=== PATIENT | male | born 1955 | race African-American/Black ===

== ENCOUNTER 2021-05-19 10:17 | Inpatient (IN) | payer MEDICARE, OTHER ==
[~2021-05-19] VITALS: Ht 188 cm; Wt 140.4 kg
[2021-05-19] MEDS ORDERED: SODIUM CHLORIDE 0.9% 500 ML IV ONE (11:00)
[2021-05-19] MEDS ORDERED: ONDANSETRON HCL 4 MG/2 ML VIAL IV ONE (11:00)
[2021-05-19] MEDS ORDERED: MORPHINE SULFATE 4 MG/ML SYR/VIAL IV ONE (11:00)
[2021-05-19 11:56] LABS: Basophils # (auto) 0 10 ^3/uL (0-0.2); Basophils % (auto) 0.6 % (0.0-2.0); Eosinophils # (auto) 0.3 10 ^3/uL (0-0.8); Hematocrit 33.4 % (41.0-53.0); Lymphocytes # (auto) 0.8 10 ^3/uL (0.4-5.4); Lymphocytes % (auto) 11.1 % (10.0-50.0); Mean Corpuscular Hemoglobin 27.2 pg (28.0-32.0); Mean Corpuscular Hgb Conc. 32.9 g/dL (32.0-36.0); Mean Corpuscular Volume 82.8 fL (80.0-100.0); Monocytes # (auto) 0.8 10 ^3/uL (0-1.3); Monocytes % (auto) 11.3 % (0.0-12.0); Neutrophils # (auto) 5.3 10 ^3/uL (1.6-8.6); Red Blood Cells 4.04 10^6/uL (4.5-5.90); Red Cell Distribution Width 16.8 % (11.8-14.3); White Blood Cell 7.2 10^3/uL (4.4-10.8)
[2021-05-19 12:14] LABS: Albumin 3.2 g/dL (3.4-5.0); BUN/Creatinine Ratio 23.5; Calcium 8.8 mg/dL (8.5-10.1); Potassium 3.3 mmol/L (3.5-5.1)
[2021-05-19 12:20] LABS: INR 1.09 (0.9-1.15); Partial Thromboplastin Time 48.4 sec (23.6-33.0)
[2021-05-19 12:24] LABS: Bilirubin, Total 0.4 mg/dL (0.2-1.0); Total Protein 7.9 g/dL (6.4-8.2)
[2021-05-19] MEDS ORDERED: HYDROcodone-ACET 10/325MG TAB PO ONE (13:00)
[2021-05-19] MEDS ORDERED: CLINDAMYCIN 600MG IV 50 ML IV ONE (13:15)
[2021-05-19] MEDS ORDERED: ACETAMINOPHEN 325 MG TAB PO PRN (14:00)
[2021-05-19] MEDS ORDERED: SODIUM CHLORIDE 0.9% 1,000 ML IV ONE (14:00)
[2021-05-19] MEDS ORDERED: GABA300C10 PO (14:21)
[2021-05-19] MEDS ORDERED: HYDR25TA5 PO (14:21)
[2021-05-19] MEDS ORDERED: ATOR40TA52 PO (14:21)
[2021-05-19] MEDS ORDERED: NICO14DI29 TOP (14:21)
[2021-05-19] MEDS ORDERED: METO1TAB9 PO (14:21)
[2021-05-19] MEDS ORDERED: HYDR-4611 (14:21)
[2021-05-19] MEDS ORDERED: LOSA-39 PO (14:21)
[2021-05-19] MEDS ORDERED: TAMS0.4C36 PO (14:21)
[2021-05-19] MEDS ORDERED: FURO40TA4 PO (14:21)
[2021-05-19] MEDS: GABAPENTIN 300 MG CAP PO SCH ×2 (14:53→23:53)
[2021-05-19] MEDS ORDERED: POTASSIUM EFFERVESENT TAB 25 MEQ PO ONE (15:15)
[2021-05-19] MEDS: CEPHALEXIN 250 MG CAP PO SCH (15:31)
[2021-05-19] MEDS ORDERED: HYDROmorphone HCL 2 MG/ML VL ONE (16:30)
[2021-05-19] MEDS ORDERED: HYDROmorphone HCL 2 MG/ML VL IV SCH (16:30)
[2021-05-19] MEDS: HYDROmorphone HCL 2 MG/ML VL IV PRN (16:45)
[2021-05-19] MEDS: TAMSULOSIN HYDROCHLORIDE 0.4 MG CAP PO SCH (18:49)
[2021-05-19] MEDS: HYDROcodone-ACET 10/325MG TAB PO PRN (18:49)
[2021-05-19] MEDS: FUROSEMIDE 40 MG TAB PO SCH (18:49)
[2021-05-19 18:54] VITALS: BP 100/69
[2021-05-19 22:33] VITALS: BP 137/72
[2021-05-19] MEDS: ATORVASTATIN 20 MG TAB PO SCH (23:52)
[2021-05-19] MEDS: DOXYCYCLINE 100 MG TAB/CAP PO SCH (23:53)
[2021-05-20 05:36] VITALS: BP 117/69
[2021-05-20] MEDS: CEPHALEXIN 250 MG CAP PO SCH ×2 (06:11→15:53)
[2021-05-20] MEDS: FUROSEMIDE 40 MG TAB PO SCH ×2 (06:14→18:41)
[2021-05-20 07:02] LABS: Basophils # (auto) 0 10 ^3/uL (0-0.2); Basophils % (auto) 0.6 % (0.0-2.0); Eosinophils # (auto) 0.3 10 ^3/uL (0-0.8); Eosinophils % (auto) 3.4 % (0.0-7.0); Hematocrit 31.5 % (41.0-53.0); Hemoglobin 10.6 g/dL (13.5-17.5); Lymphocytes # (auto) 0.9 10 ^3/uL (0.4-5.4); Lymphocytes % (auto) 11.6 % (10.0-50.0); Mean Corpuscular Hemoglobin 28.2 pg (28.0-32.0); Mean Corpuscular Hgb Conc. 33.7 g/dL (32.0-36.0); Mean Corpuscular Volume 83.7 fL (80.0-100.0); Monocytes # (auto) 0.9 10 ^3/uL (0-1.3); Monocytes % (auto) 11.6 % (0.0-12.0); Neutrophils # (auto) 5.5 10 ^3/uL (1.6-8.6); Neutrophils % (auto) 72.8 % (37.0-80.0); Red Blood Cells 3.77 10^6/uL (4.5-5.90); Red Cell Distribution Width 16.6 % (11.8-14.3); White Blood Cell 7.5 10^3/uL (4.4-10.8)
[2021-05-20 07:03] LABS: Potassium 3.5 mmol/L (3.5-5.1)
[2021-05-20 07:09] LABS: Albumin 3.2 g/dL (3.4-5.0); BUN/Creatinine Ratio 27.4; Calcium 8.6 mg/dL (8.5-10.1); Magnesium 2.7 mg/dL (1.6-2.6)
[2021-05-20 07:11] LABS: Bilirubin, Total 0.7 mg/dL (0.2-1.0); Phosphorus 4.1 mg/dL (2.5-4.90); Total Protein 7.4 g/dL (6.4-8.2)
[2021-05-20 09:15] VITALS: BP 105/61
[2021-05-20] MEDS: METOPROLOL SUCCINATE XL 50 MG TAB PO SCH (10:00)
[2021-05-20] MEDS: LOSARTAN POTASSIUM 50 MG TAB PO SCH (10:00)
[2021-05-20] MEDS: HCTZ 25 MG TAB PO SCH (10:00)
[2021-05-20] MEDS: ONDANSETRON HCL 4 MG/2 ML VIAL IV PRN ×2 (10:09→15:37)
[2021-05-20] MEDS: HYDROmorphone HCL 2 MG/ML VL IV PRN ×2 (10:10→15:40)
[2021-05-20] MEDS: GABAPENTIN 300 MG CAP PO SCH ×2 (10:11→23:38)
[2021-05-20] MEDS: DOXYCYCLINE 100 MG TAB/CAP PO SCH ×2 (10:11→23:39)
[2021-05-20] MEDS: ENOXAPARIN SOD 40 MG/0.4 ML SYRINGE SC SCH (10:24)
[2021-05-20 13:00] VITALS: BP 103/57
[2021-05-20] MEDS: HYDROcodone-ACET 10/325MG TAB PO PRN ×2 (13:40→23:40)
[2021-05-20 16:49] VITALS: BP 106/65
[2021-05-20 16:59] LABS: Creatinine, Urine 106 mg/dL (30.0-125.0); Sodium Urine 34 mmol/L (40-220)
[2021-05-20] MEDS: TAMSULOSIN HYDROCHLORIDE 0.4 MG CAP PO SCH (18:41)
[2021-05-20 21:57] VITALS: BP 148/57
[2021-05-20] MEDS: ATORVASTATIN 20 MG TAB PO SCH (23:38)
[2021-05-21 05:00] VITALS: BP 109/60
[2021-05-21] MEDS: CEPHALEXIN 250 MG CAP PO SCH ×2 (05:23→17:48)
[2021-05-21] MEDS: FUROSEMIDE 40 MG TAB PO SCH ×3 (05:24→17:52)
[2021-05-21] MEDS: HYDROcodone-ACET 10/325MG TAB PO PRN ×2 (05:24→22:51)
[2021-05-21 07:04] LABS: Magnesium 2.1 mg/dL (1.6-2.6)
[2021-05-21 07:07] LABS: Phosphorus 3.4 mg/dL (2.5-4.90)
[2021-05-21 09:00] VITALS: BP 105/53
[2021-05-21] MEDS: DOXYCYCLINE 100 MG TAB/CAP PO SCH ×2 (09:16→22:49)
[2021-05-21] MEDS: GABAPENTIN 300 MG CAP PO SCH ×2 (09:17→22:49)
[2021-05-21] MEDS: ENOXAPARIN SOD 40 MG/0.4 ML SYRINGE SC SCH ×2 (09:19→22:50)
[2021-05-21] MEDS: LOSARTAN POTASSIUM 50 MG TAB PO SCH (10:00)
[2021-05-21] MEDS: METOPROLOL SUCCINATE XL 50 MG TAB PO SCH (10:00)
[2021-05-21] MEDS: HCTZ 25 MG TAB PO SCH (10:00)
[2021-05-21] MEDS: HYDROmorphone HCL 2 MG/ML VL IV PRN (12:55)
[2021-05-21 13:00] VITALS: BP 120/60
[2021-05-21 17:00] VITALS: BP 124/66
[2021-05-21] MEDS: TAMSULOSIN HYDROCHLORIDE 0.4 MG CAP PO SCH (17:49)
[2021-05-21] MEDS: ATORVASTATIN 20 MG TAB PO SCH (22:49)
[2021-05-21 23:01] VITALS: BP 123/57
[2021-05-22 04:56] VITALS: BP 122/59
[2021-05-22] MEDS: CEPHALEXIN 250 MG CAP PO SCH (05:24)
[2021-05-22] MEDS: FUROSEMIDE 40 MG TAB PO SCH ×2 (05:26→06:00)
[2021-05-22] MEDS: HYDROcodone-ACET 10/325MG TAB PO PRN (05:27)
[2021-05-22 07:04] LABS: Magnesium 2.1 mg/dL (1.6-2.6)
[2021-05-22 09:28] VITALS: BP 140/76
[2021-05-22] MEDS: HCTZ 25 MG TAB PO SCH (10:21)
[2021-05-22] MEDS: GABAPENTIN 300 MG CAP PO SCH (10:21)
[2021-05-22] MEDS: ENOXAPARIN SOD 40 MG/0.4 ML SYRINGE SC SCH (10:22)
[2021-05-22] MEDS: METOPROLOL SUCCINATE XL 50 MG TAB PO SCH (10:22)
[2021-05-22] MEDS: DOXYCYCLINE 100 MG TAB/CAP PO SCH (10:22)
[2021-05-22] MEDS ORDERED: CIPR-173 PO (11:10)
[2021-05-22 12:19] VITALS: BP 140/67
[2021-05-22 12:52] VITALS: BP 140/67
== END 2021-05-22 13:25 | disposition home or self-care (01) | DRG 383 ==
LOC: ER 10:17 → OVERFLOW 13:57 → TELE-WESTW 17:57
PROVIDERS: ADMIT Student in an Organized Health Care Education/Training Program; ATTEND Family Medicine
DX: L03.115 Cellulitis of right lower limb (principal); N17.0 Acute kidney failure with tubular necrosis; I83.019 Varicose veins of right lower extremity with ulcer of unspecified site; L97.919 Non-pressure chronic ulcer of unspecified part of right lower leg with unspecified severity; D64.9 Anemia, unspecified; E87.6 Hypokalemia; N40.0 Benign prostatic hyperplasia without lower urinary tract symptoms; B96.5 Pseudomonas (aeruginosa) (mallei) (pseudomallei) as the cause of diseases classified elsewhere; E66.01 Morbid (severe) obesity due to excess calories; F17.210 Nicotine dependence, cigarettes, uncomplicated; J44.9 Chronic obstructive pulmonary disease, unspecified; N18.32 Chronic kidney disease, stage 3b; Z96.651 Presence of right artificial knee joint; I87.2 Venous insufficiency (chronic) (peripheral); Z20.822 Contact with and (suspected) exposure to COVID-19; M19.90 Unspecified osteoarthritis, unspecified site; I12.9 Hypertensive chronic kidney disease with stage 1 through stage 4 chronic kidney disease, or unspecified chronic kidney disease; Z68.41 Body mass index [BMI] 40.0-44.9, adult; Z79.899 Other long term (current) drug therapy; Z83.3 Family history of diabetes mellitus; Z86.73 Personal history of transient ischemic attack (TIA), and cerebral infarction without residual deficits; Z71.6 Tobacco abuse counseling; Z71.3 Dietary counseling and surveillance
CPT/HCPCS: 36415; 73700; 76775; 80053; 82570; 83605; 83735; 83880; 83935; 84100; 84133; 84300; 85025; 85610; 85730; 87040; 87077; 87186; 87205; 93005; 93306; 93925; 93971; 96361; 96374; 96375; G0378; J2405; J3490

== ENCOUNTER 2021-07-14 13:24 | Inpatient (IN) | payer MEDICARE, OTHER ==
[~2021-07-14] VITALS: Ht 188 cm; Wt 133.0 kg
[~2021-07-14 13:24] MED LIST: ATOR40TA52 PO; CIPR-173 PO; FURO40TA4 PO; GABA300C10 PO; HYDR-4611; HYDR25TA5 PO; LOSA-39 PO; METO1TAB9 PO; NICO14DI29 TOP; TAMS0.4C36 PO
[2021-07-14] MEDS ORDERED: SODIUM CHLORIDE 0.9% 500 ML IV ONE (15:15)
[2021-07-14 16:01] LABS: Basophils # (auto) 0.1 10 ^3/uL (0-0.2); Eosinophils # (auto) 0.3 10 ^3/uL (0-0.8); Nucleated Red Blood Cells % 0.1 %; White Blood Cell 9.8 10^3/uL (4.4-10.8)
[2021-07-14 16:03] LABS: Basophils % (auto) 0.5 % (0.0-2.0); Eosinophils % (auto) 3.1 % (0.0-7.0); Hematocrit 23.6 % (41.0-53.0); Hemoglobin 7.9 g/dL (13.5-17.5); Lymphocytes # (auto) 1.3 10 ^3/uL (0.4-5.4); Lymphocytes % (auto) 13.6 % (10.0-50.0); Mean Corpuscular Hemoglobin 27.7 pg (28.0-32.0); Mean Corpuscular Hgb Conc. 33.5 g/dL (32.0-36.0); Mean Corpuscular Volume 82.8 fL (80.0-100.0); Monocytes % (auto) 9.9 % (0.0-12.0); Neutrophils # (auto) 7.1 10 ^3/uL (1.6-8.6); Neutrophils % (auto) 72.9 % (37.0-80.0); Red Blood Cells 2.85 10^6/uL (4.5-5.90); Red Cell Distribution Width 15.4 % (11.8-14.3)
[2021-07-14 16:19] LABS: Calcium 8.3 mg/dL (8.5-10.1); Potassium 3.2 mmol/L (3.5-5.1)
[2021-07-14 16:23] LABS: Bilirubin, Total 0.9 mg/dL (0.2-1.0); Total Protein 7.4 g/dL (6.4-8.2)
[2021-07-14 16:27] LABS: INR 1.19 (0.9-1.15); Partial Thromboplastin Time 43.2 sec (23.6-33.0)
[2021-07-14] MEDS ORDERED: cefTRIAXone 1GM/50ML D5W 50 ML IV ONE (19:00)
[2021-07-14] MEDS ORDERED: ONDANSETRON HCL 4 MG/2 ML VIAL IV PRN (19:00)
[2021-07-14] MEDS ORDERED: GOLYTELY 4L KIT PO ONE (19:30)
[2021-07-14] MEDS: LACTATED RINGER'S 1,000 ML IV SCH (20:39)
[2021-07-14] MEDS: MORPHINE SULFATE INJ 2 MG/ml SYRG IV PRN (21:46)
[2021-07-14] MEDS ORDERED: metroNIDAZOLE 500MG/100ML 100 ML IV SCH (22:00)
[2021-07-15 01:28] LABS: Hematocrit 22.5 % (41.0-53.0); Hemoglobin 7.5 g/dL (13.5-17.5)
[2021-07-15 01:48] VITALS: BP 108/52
[2021-07-15 05:00] VITALS: BP 120/54
[2021-07-15 07:19] LABS: Basophils # (auto) 0 10 ^3/uL (0-0.2); Basophils % (auto) 0.5 % (0.0-2.0); Eosinophils # (auto) 0.2 10 ^3/uL (0-0.8); Eosinophils % (auto) 2.7 % (0.0-7.0); Neutrophils % (auto) 74.4 % (37.0-80.0)
[2021-07-15 07:21] LABS: Hematocrit 22.6 % (41.0-53.0); Lymphocytes # (auto) 0.9 10 ^3/uL (0.4-5.4); Lymphocytes % (auto) 10.9 % (10.0-50.0); Mean Corpuscular Hemoglobin 28.9 pg (28.0-32.0); Mean Corpuscular Hgb Conc. 35.2 g/dL (32.0-36.0); Mean Corpuscular Volume 82.2 fL (80.0-100.0); Monocytes % (auto) 11.5 % (0.0-12.0); Neutrophils # (auto) 6.4 10 ^3/uL (1.6-8.6); Red Blood Cells 2.75 10^6/uL (4.5-5.90); White Blood Cell 8.6 10^3/uL (4.4-10.8)
[2021-07-15 07:38] LABS: Calcium 8.8 mg/dL (8.5-10.1); Potassium 3.6 mmol/L (3.5-5.1)
[2021-07-15 07:41] LABS: BUN/Creatinine Ratio 39.8; Bilirubin, Total 0.7 mg/dL (0.2-1.0); Total Protein 7.5 g/dL (6.4-8.2)
[2021-07-15 09:00] VITALS: BP 118/63
[2021-07-15] MEDS: cefTRIAXone 1GM/50ML D5W 50 ML IV SCH (09:21)
[2021-07-15] MEDS: LACTATED RINGER'S 1,000 ML IV SCH ×2 (09:22→21:40)
[2021-07-15 12:12] LABS: Hemoglobin 7.9 g/dL (13.5-17.5)
[2021-07-15 12:14] LABS: Hematocrit 24.3 % (41.0-53.0)
[2021-07-15 13:00] VITALS: BP 123/63
[2021-07-15] MEDS: PANTOPRAZOLE 40mg/50ML NS AE 50 ML IV SCH ×3 (14:14→23:30)
[2021-07-15 17:00] VITALS: BP 129/45
[2021-07-15 19:01] LABS: Hematocrit 23.1 % (41.0-53.0); Hemoglobin 7.6 g/dL (13.5-17.5)
[2021-07-15] MEDS: HYDROcodone-ACET 5/325MG TAB PO PRN (21:02)
[2021-07-15 22:00] VITALS: BP 126/62
[2021-07-16 05:00] VITALS: BP 107/65
[2021-07-16 05:32] LABS: Basophils # (auto) 0.1 10 ^3/uL (0-0.2); Eosinophils # (auto) 0.1 10 ^3/uL (0-0.8); Neutrophils # (auto) 5.8 10 ^3/uL (1.6-8.6); Nucleated Red Blood Cells % 0.1 %; White Blood Cell 8.1 10^3/uL (4.4-10.8)
[2021-07-16 05:45] LABS: Basophils % (auto) 1.2 % (0.0-2.0); Eosinophils % (auto) 1.8 % (0.0-7.0); Hemoglobin 7.2 g/dL (13.5-17.5); Lymphocytes % (auto) 11.8 % (10.0-50.0); Mean Corpuscular Hemoglobin 28.2 pg (28.0-32.0); Mean Corpuscular Hgb Conc. 34.2 g/dL (32.0-36.0); Mean Corpuscular Volume 82.6 fL (80.0-100.0); Monocytes # (auto) 1.1 10 ^3/uL (0-1.3); Monocytes % (auto) 13.3 % (0.0-12.0); Neutrophils % (auto) 71.9 % (37.0-80.0); Red Blood Cells 2.54 10^6/uL (4.5-5.90); Red Cell Distribution Width 15.5 % (11.8-14.3)
[2021-07-16 06:10] LABS: Potassium 3.3 mmol/L (3.5-5.1)
[2021-07-16 06:16] LABS: Albumin 2.9 g/dL (3.4-5.0); BUN/Creatinine Ratio 30.8; Calcium 9.1 mg/dL (8.5-10.1)
[2021-07-16 06:19] LABS: Bilirubin, Total 0.7 mg/dL (0.2-1.0); Total Protein 7.3 g/dL (6.4-8.2)
[2021-07-16] MEDS: PANTOPRAZOLE 40mg/50ML NS AE 50 ML IV SCH ×4 (06:30→19:30)
[2021-07-16 07:21] LABS: Urine Bacteria NONE SEEN /hpf (None Seen); Urine Blood Negative /uL (Negative); Urine Specific Gravity 1.015 (1.001-1.035); Urine WBC <1 /hpf (0 - 3)
[2021-07-16] MEDS ORDERED: POTASSIUM CHL 20 Meq TABLET PO ONE (08:45)
[2021-07-16 09:00] VITALS: BP 108/63
[2021-07-16] MEDS: cefTRIAXone 1GM/50ML D5W 50 ML IV SCH (09:13)
[2021-07-16] MEDS: LACTATED RINGER'S 1,000 ML IV SCH (11:00)
[2021-07-16] MEDS ORDERED: diphenhdrAMINE HCL 50 MG/1 ML VL ONE (11:47)
[2021-07-16] MEDS: MIDAZOLAM HCL 5 MG/ML-1ML VIAL ONE ×2 (12:18→12:24)
[2021-07-16] MEDS: fentaNYL CITRATE 100 MCG/2 ML VL ONE ×2 (12:18→12:24)
[2021-07-16] MEDS: HYDROcodone-ACET 5/325MG TAB PO PRN (15:53)
[2021-07-16 17:00] VITALS: BP 133/72
[2021-07-16 22:00] VITALS: BP 147/68
[2021-07-17] VITALS (8 sets, daily range): BP systolic 118–166; BP diastolic 76–89
[2021-07-17] MEDS: LACTATED RINGER'S 1,000 ML IV SCH ×2 (00:20→09:13)
[2021-07-17] MEDS: PANTOPRAZOLE 40mg/50ML NS AE 50 ML IV SCH ×5 (00:30→21:08)
[2021-07-17] MEDS: MORPHINE SULFATE INJ 2 MG/ml SYRG IV PRN (01:53)
[2021-07-17] MEDS ORDERED: SODIUM CHLORIDE LOCK 10 ML ONE (08:54)
[2021-07-17] MEDS ORDERED: LIDOCAINE VISCOUS 2% 15ML UD ONE (08:54)
[2021-07-17] MEDS ORDERED: diphenhdrAMINE HCL 50 MG/1 ML VL ONE (08:55)
[2021-07-17] MEDS ORDERED: fentaNYL CITRATE 100 MCG/2 ML VL ONE (08:55)
[2021-07-17] MEDS ORDERED: MIDAZOLAM HCL 5 MG/ML-1ML VIAL ONE (08:55)
[2021-07-17] MEDS: cefTRIAXone 1GM/50ML D5W 50 ML IV SCH (09:09)
[2021-07-17 09:21] LABS: Basophils # (auto) 0.1 10 ^3/uL (0-0.2); Eosinophils # (auto) 0 10 ^3/uL (0-0.8); Lymphocytes # (auto) 1.1 10 ^3/uL (0.4-5.4); Monocytes # (auto) 1.7 10 ^3/uL (0-1.3); Red Cell Distribution Width 15.4 % (11.8-14.3)
[2021-07-17 09:23] LABS: Basophils % (auto) 0.9 % (0.0-2.0); Eosinophils % (auto) 0.3 % (0.0-7.0); Hematocrit 20.6 % (41.0-53.0); Lymphocytes % (auto) 9.7 % (10.0-50.0); Mean Corpuscular Hemoglobin 27.9 pg (28.0-32.0); Mean Corpuscular Hgb Conc. 33.1 g/dL (32.0-36.0); Mean Corpuscular Volume 84.2 fL (80.0-100.0); Monocytes % (auto) 14.3 % (0.0-12.0); Neutrophils # (auto) 8.6 10 ^3/uL (1.6-8.6); Neutrophils % (auto) 74.8 % (37.0-80.0); Nucleated Red Blood Cells % 0.1 %; Red Blood Cells 2.45 10^6/uL (4.5-5.90); White Blood Cell 11.5 10^3/uL (4.4-10.8)
[2021-07-17 09:31] LABS: Albumin 2.9 g/dL (3.4-5.0); Potassium 3.6 mmol/L (3.5-5.1)
[2021-07-17 09:33] LABS: INR 1.22 (0.9-1.15)
[2021-07-17 09:35] LABS: Bilirubin, Total 0.8 mg/dL (0.2-1.0); Total Protein 7.6 g/dL (6.4-8.2)
[2021-07-17 09:39] LABS: BUN/Creatinine Ratio 14.3; Hemoglobin 6.8 g/dL (13.5-17.5)
[2021-07-17] MEDS: HYDROcodone-ACET 5/325MG TAB PO PRN (10:49)
[2021-07-17] MEDS ORDERED: diphenhdrAMINE HCL 50 MG/1 ML VL IV ONE (19:00)
[2021-07-17 22:26] LABS: % Iron Saturation 6.9 % (20-55)
[2021-07-17] MEDS: hydrALAZINE HCL 20 MG/ML VL IV PRN (22:38)
[2021-07-18] VITALS: BP 144/87
[2021-07-18] MEDS: ACETAMINOPHEN 325 MG TAB PO PRN (00:55)
[2021-07-18] MEDS: PANTOPRAZOLE 40mg/50ML NS AE 50 ML IV SCH ×6 (01:30→22:30)
[2021-07-18 01:55] LABS: Basophils # (auto) 0.1 10 ^3/uL (0-0.2); Basophils % (auto) 0.6 % (0.0-2.0); Eosinophils # (auto) 0 10 ^3/uL (0-0.8); Hematocrit 22.9 % (41.0-53.0); Hemoglobin 7.6 g/dL (13.5-17.5); Lymphocytes # (auto) 1.1 10 ^3/uL (0.4-5.4); Mean Corpuscular Hemoglobin 28.1 pg (28.0-32.0); Mean Corpuscular Hgb Conc. 33.1 g/dL (32.0-36.0); Monocytes % (auto) 15.1 % (0.0-12.0); Neutrophils # (auto) 10.1 10 ^3/uL (1.6-8.6); Neutrophils % (auto) 76.3 % (37.0-80.0); Nucleated Red Blood Cells % 0.3 %; Red Blood Cells 2.69 10^6/uL (4.5-5.90); Red Cell Distribution Width 15.8 % (11.8-14.3); White Blood Cell 13.2 10^3/uL (4.4-10.8)
[2021-07-18] MEDS: LACTATED RINGER'S 1,000 ML IV SCH (03:00)
[2021-07-18] MEDS: HYDROcodone-ACET 10/325MG TAB PO PRN ×2 (03:51→12:05)
[2021-07-18 05:00] VITALS: BP 161/89
[2021-07-18] MEDS: cefTRIAXone 1GM/50ML D5W 50 ML IV SCH (08:24)
[2021-07-18] MEDS: MORPHINE SULFATE INJ 2 MG/ml SYRG IV PRN (08:25)
[2021-07-18 09:00] VITALS: BP 156/96
[2021-07-18] MEDS: hydrALAZINE HCL 20 MG/ML VL IV PRN (09:43)
[2021-07-18 10:02] LABS: Basophils # (auto) 0.1 10 ^3/uL (0-0.2); Basophils % (auto) 0.4 % (0.0-2.0); Eosinophils # (auto) 0 10 ^3/uL (0-0.8); Hematocrit 23.4 % (41.0-53.0); Hemoglobin 7.8 g/dL (13.5-17.5); Lymphocytes % (auto) 7.1 % (10.0-50.0); Mean Corpuscular Hgb Conc. 33.3 g/dL (32.0-36.0); Mean Corpuscular Volume 84.3 fL (80.0-100.0); Monocytes # (auto) 1.7 10 ^3/uL (0-1.3); Monocytes % (auto) 12.4 % (0.0-12.0); Neutrophils # (auto) 10.7 10 ^3/uL (1.6-8.6); Neutrophils % (auto) 80.1 % (37.0-80.0); Nucleated Red Blood Cells % 0.2 %; Red Blood Cells 2.78 10^6/uL (4.5-5.90); Red Cell Distribution Width 16.1 % (11.8-14.3); White Blood Cell 13.4 10^3/uL (4.4-10.8)
[2021-07-18 10:21] LABS: Albumin 2.6 g/dL (3.4-5.0); Calcium 8.7 mg/dL (8.5-10.1); Potassium 3.5 mmol/L (3.5-5.1)
[2021-07-18 10:29] LABS: BUN/Creatinine Ratio 8.5; Bilirubin, Total 1.1 mg/dL (0.2-1.0); Total Protein 7.6 g/dL (6.4-8.2)
[2021-07-18 13:00] VITALS: BP 134/78
[2021-07-18] MEDS ORDERED: FUROSEMIDE 40 MG/4 ML VIAL IV ONE (14:45)
[2021-07-18 17:00] VITALS: BP 155/98
[2021-07-18 17:12] LABS: Urine Bacteria NONE SEEN /hpf (None Seen); Urine Blood Negative /uL (Negative); Urine WBC 1 /hpf (0 - 3)
[2021-07-18 22:00] VITALS: BP 131/72
[2021-07-19] MEDS: PANTOPRAZOLE 40mg/50ML NS AE 50 ML IV SCH ×4 (04:43→22:51)
[2021-07-19 05:00] VITALS: BP 154/95
[2021-07-19] MEDS: hydrALAZINE HCL 20 MG/ML VL IV PRN ×2 (06:28→19:47)
[2021-07-19 07:41] LABS: Basophils # (auto) 0.1 10 ^3/uL (0-0.2); Basophils % (auto) 0.4 % (0.0-2.0); Eosinophils # (auto) 0 10 ^3/uL (0-0.8); Eosinophils % (auto) 0.2 % (0.0-7.0); Hematocrit 26.3 % (41.0-53.0); Hemoglobin 8.5 g/dL (13.5-17.5); Lymphocytes # (auto) 1.1 10 ^3/uL (0.4-5.4); Lymphocytes % (auto) 7.2 % (10.0-50.0); Mean Corpuscular Hemoglobin 28.1 pg (28.0-32.0); Mean Corpuscular Hgb Conc. 32.3 g/dL (32.0-36.0); Mean Corpuscular Volume 87.2 fL (80.0-100.0); Monocytes # (auto) 1.7 10 ^3/uL (0-1.3); Monocytes % (auto) 11.3 % (0.0-12.0); Neutrophils # (auto) 12.3 10 ^3/uL (1.6-8.6); Neutrophils % (auto) 80.9 % (37.0-80.0); Nucleated Red Blood Cells % 0.1 %; Red Blood Cells 3.01 10^6/uL (4.5-5.90); Red Cell Distribution Width 15.8 % (11.8-14.3); White Blood Cell 15.2 10^3/uL (4.4-10.8)
[2021-07-19 09:00] VITALS: BP 156/78
[2021-07-19] MEDS: cefTRIAXone 1GM/50ML D5W 50 ML IV SCH (09:22)
[2021-07-19] MEDS: SODIUM FERR GLUC 62.5MG/5ML 125 MG in SODIUM CHL 0.9% 100 ML IV SCH (11:44)
[2021-07-19] MEDS ORDERED: diphenhdrAMINE HCL 50 MG/1 ML VL ONE (12:42)
[2021-07-19] MEDS ORDERED: LIDOCAINE VISCOUS 2% 15ML UD ONE (12:42)
[2021-07-19] MEDS ORDERED: MIDAZOLAM HCL 5 MG/ML-1ML VIAL ONE (12:42)
[2021-07-19] MEDS ORDERED: SODIUM CHLORIDE LOCK 10 ML ONE (12:42)
[2021-07-19] MEDS ORDERED: fentaNYL CITRATE 100 MCG/2 ML VL ONE (12:43)
[2021-07-19 13:00] VITALS: BP 110/66
[2021-07-19 14:54] LABS: Potassium 4.2 mmol/L (3.5-5.1); Sodium 142 mmol/L (136-145)
[2021-07-19 14:55] LABS: Alanine Aminotransferase 33 U/L (16-61); Albumin 2.3 g/dL (3.4-5.0); Alkaline Phosphatase 48 U/L (45-117); Anion Gap 8 (5-15); Aspartate Aminotransferase 49 U/L (15-37); BUN/Creatinine Ratio 10.8; Blood Urea Nitrogen 14 mg/dL (7-18); Calcium 8.5 mg/dL (8.5-10.1); Carbon Dioxide 21 mmol/L (21-32); Chloride 113 mmol/L (98-107); GFR African American 71 mL/min; GFR Non-African American 59 mL/min; Glucose 114 mg/dL (74-106); Magnesium 2.5 mg/dL (1.6-2.6); Total Protein 7.9 g/dL (6.4-8.2)
[2021-07-19] MEDS: ACETAMINOPHEN 325 MG TAB PO PRN ×2 (16:04→22:59)
[2021-07-19 16:51] VITALS: BP 161/90
[2021-07-19] MEDS: HYDROcodone-ACET 10/325MG TAB PO PRN (18:11)
[2021-07-19] MEDS ORDERED: VANCOMYCIN 1GM/250ML 250 ML IV ONE (20:45)
[2021-07-19] MEDS ORDERED: VANCOMYCIN PER PHARMACY 0 MG IV SCH (20:45)
[2021-07-19 22:00] VITALS: BP 109/79
[2021-07-19] MEDS: VANCOMYCIN 1GM/250ML 250 ML IV SCH (22:40)
[2021-07-20] MEDS: PANTOPRAZOLE 40mg/50ML NS AE 50 ML IV SCH ×5 (03:38→23:28)
[2021-07-20 05:00] VITALS: BP 133/77
[2021-07-20] MEDS: ACETAMINOPHEN 325 MG TAB PO PRN (06:25)
[2021-07-20] MEDS: MORPHINE SULFATE INJ 2 MG/ml SYRG IV PRN (06:26)
[2021-07-20 09:00] VITALS: BP 123/74
[2021-07-20] MEDS: cefTRIAXone 1GM/50ML D5W 50 ML IV SCH (10:39)
[2021-07-20 10:41] LABS: Basophils # (auto) 0.1 10 ^3/uL (0-0.2); Hemoglobin 7.7 g/dL (13.5-17.5); Neutrophils % (auto) 81.3 % (37.0-80.0); Red Cell Distribution Width 15.7 % (11.8-14.3)
[2021-07-20 10:46] LABS: Basophils % (auto) 0.6 % (0.0-2.0); Eosinophils # (auto) 0.1 10 ^3/uL (0-0.8); Hematocrit 22.5 % (41.0-53.0); Lymphocytes # (auto) 0.9 10 ^3/uL (0.4-5.4); Lymphocytes % (auto) 6.4 % (10.0-50.0); Mean Corpuscular Hemoglobin 28.3 pg (28.0-32.0); Mean Corpuscular Hgb Conc. 34.2 g/dL (32.0-36.0); Mean Corpuscular Volume 82.7 fL (80.0-100.0); Monocytes # (auto) 1.4 10 ^3/uL (0-1.3); Monocytes % (auto) 10.7 % (0.0-12.0); Neutrophils # (auto) 10.9 10 ^3/uL (1.6-8.6); Nucleated Red Blood Cells % 0.4 %; Red Blood Cells 2.72 10^6/uL (4.5-5.90); White Blood Cell 13.4 10^3/uL (4.4-10.8)
[2021-07-20 10:57] LABS: Albumin 2.4 g/dL (3.4-5.0); BUN/Creatinine Ratio 13.3; Calcium 8.4 mg/dL (8.5-10.1); Magnesium 2.6 mg/dL (1.6-2.6); Potassium 3.6 mmol/L (3.5-5.1)
[2021-07-20 11:00] LABS: Bilirubin, Total 0.8 mg/dL (0.2-1.0); Total Protein 7.2 g/dL (6.4-8.2)
[2021-07-20] MEDS: VANCOMYCIN 1GM/250ML 250 ML IV SCH ×2 (11:48→21:34)
[2021-07-20] MEDS: HYDROcodone-ACET 10/325MG TAB PO PRN ×2 (12:56→20:04)
[2021-07-20] MEDS: SODIUM FERR GLUC 62.5MG/5ML 125 MG in SODIUM CHL 0.9% 100 ML IV SCH (12:56)
[2021-07-20 13:00] VITALS: BP 148/82
[2021-07-20] MEDS: metroNIDAZOLE 500 MG TAB PO SCH ×2 (14:25→21:34)
[2021-07-20 16:43] VITALS: BP 132/79
[2021-07-20 22:00] VITALS: BP 122/64
[2021-07-21] MEDS: HYDROcodone-ACET 10/325MG TAB PO PRN ×2 (03:44→20:12)
[2021-07-21 05:00] VITALS: BP 106/61
[2021-07-21] MEDS: PANTOPRAZOLE 40mg/50ML NS AE 50 ML IV SCH ×4 (05:36→20:12)
[2021-07-21] MEDS: metroNIDAZOLE 500 MG TAB PO SCH ×3 (05:36→21:31)
[2021-07-21 06:32] LABS: Basophils # (auto) 0.1 10 ^3/uL (0-0.2); Basophils % (auto) 0.4 % (0.0-2.0); Eosinophils # (auto) 0.2 10 ^3/uL (0-0.8); Eosinophils % (auto) 1.5 % (0.0-7.0); Hematocrit 21.8 % (41.0-53.0); Hemoglobin 7.1 g/dL (13.5-17.5); Lymphocytes # (auto) 1.1 10 ^3/uL (0.4-5.4); Lymphocytes % (auto) 8.4 % (10.0-50.0); Mean Corpuscular Hgb Conc. 32.7 g/dL (32.0-36.0); Mean Corpuscular Volume 85.7 fL (80.0-100.0); Monocytes # (auto) 1.6 10 ^3/uL (0-1.3); Monocytes % (auto) 11.9 % (0.0-12.0); Neutrophils # (auto) 10.3 10 ^3/uL (1.6-8.6); Neutrophils % (auto) 77.8 % (37.0-80.0); Nucleated Red Blood Cells % 0.9 %; Red Blood Cells 2.55 10^6/uL (4.5-5.90); Red Cell Distribution Width 15.7 % (11.8-14.3); White Blood Cell 13.3 10^3/uL (4.4-10.8)
[2021-07-21 06:43] LABS: Albumin 2.1 g/dL (3.4-5.0); BUN/Creatinine Ratio 13.4; Calcium 8.3 mg/dL (8.5-10.1); Potassium 3.7 mmol/L (3.5-5.1)
[2021-07-21 06:45] LABS: Bilirubin, Total 0.9 mg/dL (0.2-1.0); Total Protein 6.8 g/dL (6.4-8.2)
[2021-07-21] MEDS: cefTRIAXone 1GM/50ML D5W 50 ML IV SCH (09:00)
[2021-07-21] MEDS: VANCOMYCIN 1GM/250ML 250 ML IV SCH ×2 (10:00→21:31)
[2021-07-21 10:10] VITALS: BP 105/60
[2021-07-21] MEDS: SODIUM FERR GLUC 62.5MG/5ML 125 MG in SODIUM CHL 0.9% 100 ML IV SCH (13:05)
[2021-07-21 13:07] LABS: Hepatitis A Ab IgM Negative; Hepatitis B Core IgM Negative
[2021-07-21 13:10] VITALS: BP 154/76
[2021-07-21 13:11] LABS: Hepatitis C Antibody Positive (Negative)
[2021-07-21] MEDS ORDERED: COLCHICINE 0.6 MG CAP PO ONE (13:30)
[2021-07-21] MEDS ORDERED: CEFEPIME 2 GM in SODIUM CHL 0.9% 50 ML IV SCH (14:00)
[2021-07-21] MEDS: COLCHICINE 0.6 MG CAP PO SCH (21:31)
[2021-07-21] MEDS: ACETAMINOPHEN 325 MG TAB PO PRN (21:31)
[2021-07-21 22:00] VITALS: BP 102/56
[2021-07-22] MEDS: PANTOPRAZOLE 40mg/50ML NS AE 50 ML IV SCH ×4 (02:43→15:13)
[2021-07-22 05:00] VITALS: BP 110/69
[2021-07-22 06:31] LABS: Basophils # (auto) 0.1 10 ^3/uL (0-0.2); Basophils % (auto) 0.8 % (0.0-2.0); Eosinophils # (auto) 0.3 10 ^3/uL (0-0.8); Eosinophils % (auto) 2.1 % (0.0-7.0); Hematocrit 22.3 % (41.0-53.0); Hemoglobin 7.1 g/dL (13.5-17.5); Lymphocytes % (auto) 7.3 % (10.0-50.0); Mean Corpuscular Hemoglobin 28.3 pg (28.0-32.0); Mean Corpuscular Volume 88.4 fL (80.0-100.0); Monocytes # (auto) 1.6 10 ^3/uL (0-1.3); Monocytes % (auto) 12.1 % (0.0-12.0); Neutrophils # (auto) 10.5 10 ^3/uL (1.6-8.6); Neutrophils % (auto) 77.7 % (37.0-80.0); Nucleated Red Blood Cells % 0.4 %; Red Blood Cells 2.52 10^6/uL (4.5-5.90); Red Cell Distribution Width 15.9 % (11.8-14.3); White Blood Cell 13.5 10^3/uL (4.4-10.8)
[2021-07-22 06:38] LABS: Potassium 3.7 mmol/L (3.5-5.1)
[2021-07-22] MEDS: HYDROcodone-ACET 10/325MG TAB PO PRN (06:40)
[2021-07-22] MEDS: metroNIDAZOLE 500 MG TAB PO SCH ×3 (06:40→22:05)
[2021-07-22 06:44] LABS: Albumin 2.1 g/dL (3.4-5.0); BUN/Creatinine Ratio 14.5; Calcium 8.3 mg/dL (8.5-10.1)
[2021-07-22 06:47] LABS: Bilirubin, Total 0.6 mg/dL (0.2-1.0); Total Protein 6.7 g/dL (6.4-8.2)
[2021-07-22 09:00] VITALS: BP 130/66
[2021-07-22] MEDS: VANCOMYCIN 1GM/250ML 250 ML IV SCH ×2 (09:25→22:05)
[2021-07-22] MEDS: COLCHICINE 0.6 MG CAP PO SCH ×2 (09:26→22:05)
[2021-07-22] MEDS: SODIUM FERR GLUC 62.5MG/5ML 125 MG in SODIUM CHL 0.9% 100 ML IV SCH (12:00)
[2021-07-22 13:00] VITALS: BP 151/66
[2021-07-22] MEDS: ACETAMINOPHEN 325 MG TAB PO PRN (14:31)
[2021-07-22 17:00] VITALS: BP 131/70
[2021-07-22 22:00] VITALS: BP 144/72
[2021-07-23] MEDS: PANTOPRAZOLE 40mg/50ML NS AE 50 ML IV SCH ×6 (00:15→21:23)
[2021-07-23 05:00] VITALS: BP 140/74
[2021-07-23] MEDS: metroNIDAZOLE 500 MG TAB PO SCH ×3 (05:42→21:24)
[2021-07-23 05:47] LABS: Basophils # (auto) 0.1 10 ^3/uL (0-0.2); Basophils % (auto) 0.4 % (0.0-2.0); Eosinophils # (auto) 0.2 10 ^3/uL (0-0.8); Eosinophils % (auto) 1.7 % (0.0-7.0); Hematocrit 22.2 % (41.0-53.0); Hemoglobin 7.2 g/dL (13.5-17.5); Lymphocytes % (auto) 7.4 % (10.0-50.0); Mean Corpuscular Hemoglobin 27.4 pg (28.0-32.0); Mean Corpuscular Hgb Conc. 32.4 g/dL (32.0-36.0); Mean Corpuscular Volume 84.4 fL (80.0-100.0); Monocytes # (auto) 1.8 10 ^3/uL (0-1.3); Monocytes % (auto) 12.9 % (0.0-12.0); Neutrophils # (auto) 10.8 10 ^3/uL (1.6-8.6); Neutrophils % (auto) 77.6 % (37.0-80.0); Nucleated Red Blood Cells % 0.5 %; Red Blood Cells 2.63 10^6/uL (4.5-5.90); Red Cell Distribution Width 15.7 % (11.8-14.3); White Blood Cell 13.9 10^3/uL (4.4-10.8)
[2021-07-23 06:06] LABS: Albumin 2.3 g/dL (3.4-5.0); Potassium 3.8 mmol/L (3.5-5.1)
[2021-07-23 06:09] LABS: BUN/Creatinine Ratio 13.5; Calcium 8.3 mg/dL (8.5-10.1)
[2021-07-23 06:12] LABS: Bilirubin, Total 0.6 mg/dL (0.2-1.0); Total Protein 6.9 g/dL (6.4-8.2)
[2021-07-23 09:00] VITALS: BP 130/64
[2021-07-23] MEDS: VANCOMYCIN 1GM/250ML 250 ML IV SCH ×2 (10:28→20:00)
[2021-07-23] MEDS: COLCHICINE 0.6 MG CAP PO SCH ×2 (10:29→21:23)
[2021-07-23] MEDS ORDERED: ALLO100T PO (11:51)
[2021-07-23 12:00] VITALS: BP 152/62
[2021-07-23] MEDS: SODIUM FERR GLUC 62.5MG/5ML 125 MG in SODIUM CHL 0.9% 100 ML IV SCH (14:12)
[2021-07-23 17:00] VITALS: BP 140/74
[2021-07-23 17:48] VITALS: BP 147/64
[2021-07-23 22:00] VITALS: BP 123/69
[2021-07-24] MEDS: PANTOPRAZOLE 40mg/50ML NS AE 50 ML IV SCH ×5 (02:50→22:30)
[2021-07-24 05:00] VITALS: BP 111/72
[2021-07-24] MEDS: VANCOMYCIN 1GM/250ML 250 ML IV SCH ×2 (05:26→17:10)
[2021-07-24] MEDS: metroNIDAZOLE 500 MG TAB PO SCH ×3 (05:26→21:48)
[2021-07-24 06:08] LABS: Basophils # (auto) 0.1 10 ^3/uL (0-0.2); Eosinophils # (auto) 0.2 10 ^3/uL (0-0.8); Hemoglobin 7.5 g/dL (13.5-17.5); Monocytes # (auto) 1.7 10 ^3/uL (0-1.3)
[2021-07-24 06:13] LABS: Basophils % (auto) 0.9 % (0.0-2.0); Eosinophils % (auto) 1.8 % (0.0-7.0); Hematocrit 22.1 % (41.0-53.0); Mean Corpuscular Hemoglobin 28.8 pg (28.0-32.0); Mean Corpuscular Hgb Conc. 34.1 g/dL (32.0-36.0); Mean Corpuscular Volume 84.3 fL (80.0-100.0); Neutrophils # (auto) 9.4 10 ^3/uL (1.6-8.6); Neutrophils % (auto) 75.3 % (37.0-80.0); Nucleated Red Blood Cells % 0.5 %; Potassium 3.6 mmol/L (3.5-5.1); Red Blood Cells 2.62 10^6/uL (4.5-5.90); Red Cell Distribution Width 16.4 % (11.8-14.3); White Blood Cell 12.4 10^3/uL (4.4-10.8)
[2021-07-24 06:22] LABS: Albumin 2.2 g/dL (3.4-5.0); BUN/Creatinine Ratio 12.7; Bilirubin, Total 0.5 mg/dL (0.2-1.0); Calcium 8.1 mg/dL (8.5-10.1)
[2021-07-24] MEDS: SODIUM FERR GLUC 62.5MG/5ML 125 MG in SODIUM CHL 0.9% 100 ML IV SCH (12:39)
[2021-07-24] MEDS: COLCHICINE 0.6 MG CAP PO SCH ×2 (12:39→21:48)
[2021-07-24 13:00] VITALS: BP 120/76
[2021-07-24] MEDS: MORPHINE SULFATE INJ 2 MG/ml SYRG IV PRN (17:12)
[2021-07-24 22:00] VITALS: BP 145/79
[2021-07-25] MEDS: FUROSEMIDE 40 MG/4 ML VIAL IV ONE ×2 (01:06→23:30)
[2021-07-25] MEDS: VANCOMYCIN 1GM/250ML 250 ML IV SCH ×2 (02:23→12:12)
[2021-07-25] MEDS: PANTOPRAZOLE 40mg/50ML NS AE 50 ML IV SCH ×2 (03:30→08:30)
[2021-07-25 05:00] VITALS: BP 129/71
[2021-07-25] MEDS: metroNIDAZOLE 500 MG TAB PO SCH (06:00)
[2021-07-25 06:32] LABS: Basophils # (auto) 0.1 10 ^3/uL (0-0.2); Eosinophils # (auto) 0.3 10 ^3/uL (0-0.8); Hemoglobin 7.3 g/dL (13.5-17.5); Monocytes # (auto) 1.4 10 ^3/uL (0-1.3)
[2021-07-25 06:35] LABS: Basophils % (auto) 0.7 % (0.0-2.0); Eosinophils % (auto) 2.5 % (0.0-7.0); Hematocrit 21.5 % (41.0-53.0); Lymphocytes % (auto) 10.1 % (10.0-50.0); Mean Corpuscular Hemoglobin 28.4 pg (28.0-32.0); Mean Corpuscular Volume 83.6 fL (80.0-100.0); Monocytes % (auto) 13.7 % (0.0-12.0); Neutrophils # (auto) 7.5 10 ^3/uL (1.6-8.6); Nucleated Red Blood Cells % 0.4 %; Red Blood Cells 2.57 10^6/uL (4.5-5.90); Red Cell Distribution Width 16.4 % (11.8-14.3); White Blood Cell 10.3 10^3/uL (4.4-10.8)
[2021-07-25 06:36] LABS: Albumin 2.1 g/dL (3.4-5.0); Calcium 8.1 mg/dL (8.5-10.1); Potassium 3.6 mmol/L (3.5-5.1)
[2021-07-25 06:38] LABS: BUN/Creatinine Ratio 11.9
[2021-07-25 06:41] LABS: Bilirubin, Total 0.4 mg/dL (0.2-1.0); Total Protein 6.4 g/dL (6.4-8.2)
[2021-07-25 09:00] VITALS: BP 133/76
[2021-07-25] MEDS: COLCHICINE 0.6 MG CAP PO SCH ×2 (10:00→21:05)
[2021-07-25] MEDS: SODIUM FERR GLUC 62.5MG/5ML 125 MG in SODIUM CHL 0.9% 100 ML IV SCH (12:12)
[2021-07-25] MEDS: HYDROcodone-ACET 10/325MG TAB PO PRN ×2 (12:13→21:05)
[2021-07-25 13:00] VITALS: BP 149/75
[2021-07-25 17:52] VITALS: BP 133/82
[2021-07-25] MEDS: PANTOPRAZOLE 40 MG/10 ML VIAL INJ IV SCH (21:05)
[2021-07-25 22:00] VITALS: BP 152/88
[2021-07-26] MEDS: hydrALAZINE HCL 20 MG/ML VL IV PRN ×2 (00:07→22:12)
[2021-07-26 05:00] VITALS: BP 134/77
[2021-07-26] MEDS: HYDROcodone-ACET 10/325MG TAB PO PRN ×3 (06:25→22:11)
[2021-07-26 06:46] LABS: Basophils # (auto) 0.1 10 ^3/uL (0-0.2); Eosinophils # (auto) 0.2 10 ^3/uL (0-0.8); Nucleated Red Blood Cells % 0.5 %
[2021-07-26 06:48] LABS: Basophils % (auto) 0.9 % (0.0-2.0); Eosinophils % (auto) 2.4 % (0.0-7.0); Hematocrit 23.8 % (41.0-53.0); Lymphocytes % (auto) 10.8 % (10.0-50.0); Mean Corpuscular Hemoglobin 27.8 pg (28.0-32.0); Mean Corpuscular Hgb Conc. 33.5 g/dL (32.0-36.0); Monocytes # (auto) 1.2 10 ^3/uL (0-1.3); Monocytes % (auto) 12.9 % (0.0-12.0); Neutrophils # (auto) 6.5 10 ^3/uL (1.6-8.6); Red Blood Cells 2.86 10^6/uL (4.5-5.90); Red Cell Distribution Width 16.2 % (11.8-14.3); White Blood Cell 8.9 10^3/uL (4.4-10.8)
[2021-07-26 06:53] LABS: Calcium 8.7 mg/dL (8.5-10.1); Magnesium 2.5 mg/dL (1.6-2.6); Potassium 3.6 mmol/L (3.5-5.1)
[2021-07-26 06:55] LABS: BUN/Creatinine Ratio 11.2
[2021-07-26 09:00] VITALS: BP 134/75
[2021-07-26] MEDS: FUROSEMIDE 40 MG/4 ML VIAL IV SCH (10:00)
[2021-07-26] MEDS: PANTOPRAZOLE 40 MG/10 ML VIAL INJ IV SCH ×2 (10:00→22:11)
[2021-07-26] MEDS: COLCHICINE 0.6 MG CAP PO SCH ×2 (10:00→22:11)
[2021-07-26] MEDS: SODIUM FERR GLUC 62.5MG/5ML 125 MG in SODIUM CHL 0.9% 100 ML IV SCH (12:00)
[2021-07-26 13:00] VITALS: BP 165/82
[2021-07-26 17:00] VITALS: BP 161/89
[2021-07-26 22:00] VITALS: BP 157/90
[2021-07-27 05:00] VITALS: BP 144/79
[2021-07-27 08:00] VITALS: BP 137/81
[2021-07-27] MEDS: COLCHICINE 0.6 MG CAP PO SCH (09:26)
[2021-07-27] MEDS: PANTOPRAZOLE 40 MG/10 ML VIAL INJ IV SCH ×2 (09:27→22:02)
[2021-07-27] MEDS: FUROSEMIDE 40 MG/4 ML VIAL IV SCH (09:28)
[2021-07-27] MEDS: HYDROcodone-ACET 10/325MG TAB PO PRN (09:35)
[2021-07-27 12:47] VITALS: BP 118/70
[2021-07-27] MEDS: SODIUM FERR GLUC 62.5MG/5ML 125 MG in SODIUM CHL 0.9% 100 ML IV SCH (13:47)
[2021-07-27] MEDS ORDERED: ARTIFICIAL TEARS 15ml EACHEYE PRN (14:00)
[2021-07-27 17:00] VITALS: BP 122/83
[2021-07-27 22:00] VITALS: BP 132/77
[2021-07-28 05:00] VITALS: BP 106/62
[2021-07-28 09:00] VITALS: BP 135/78
[2021-07-28] MEDS: PANTOPRAZOLE 40 MG/10 ML VIAL INJ IV SCH ×2 (10:17→22:32)
[2021-07-28] MEDS: COLCHICINE 0.6 MG CAP PO SCH (10:17)
[2021-07-28] MEDS: FUROSEMIDE 40 MG/4 ML VIAL IV SCH (10:18)
[2021-07-28] MEDS ORDERED: ARTIFICIAL TEARS 15ml EACHEYE PRN (11:15)
[2021-07-28] MEDS: HYDROcodone-ACET 10/325MG TAB PO PRN ×2 (11:22→20:24)
[2021-07-28] MEDS: SODIUM FERR GLUC 62.5MG/5ML 125 MG in SODIUM CHL 0.9% 100 ML IV SCH (15:45)
[2021-07-28 16:33] VITALS: BP 141/77
[2021-07-28 22:01] VITALS: BP 154/78
[2021-07-29 05:14] VITALS: BP 146/81
[2021-07-29] MEDS: FUROSEMIDE 40 MG/4 ML VIAL IV SCH (08:58)
[2021-07-29] MEDS: PANTOPRAZOLE 40 MG/10 ML VIAL INJ IV SCH (08:58)
[2021-07-29] MEDS: COLCHICINE 0.6 MG CAP PO SCH (08:59)
[2021-07-29 09:00] VITALS: BP 137/81
[2021-07-29] MEDS: HYDROcodone-ACET 10/325MG TAB PO PRN (09:27)
[2021-07-29] MEDS: SODIUM FERR GLUC 62.5MG/5ML 125 MG in SODIUM CHL 0.9% 100 ML IV SCH (12:59)
[2021-07-29 13:00] VITALS: BP 138/80
[2021-07-29 14:04] VITALS: BP 138/76
== END 2021-07-29 16:00 | DRG 241 ==
LOC: ER 13:24 → TELE 18:46 → TELE-WESTW 07-15 01:43 → WEST WING 07-24 04:54
PROVIDERS: ADMIT Registered Nurse; ATTEND Internal Medicine Geriatric Medicine
PROC: 0DJD8ZZ Inspection of Lower Intestinal Tract, Via Natural or Artificial Opening Endoscopic (ICD-10-PCS; principal; 2021-07-16 12:14)
PROC: 30233N1 Transfusion of Nonautologous Red Blood Cells into Peripheral Vein, Percutaneous Approach (ICD-10-PCS; 2021-07-17)
PROC: 0DB68ZX Excision of Stomach, Via Natural or Artificial Opening Endoscopic, Diagnostic (ICD-10-PCS; 2021-07-19)
DX: K29.81 Duodenitis with bleeding (principal); D62 Acute posthemorrhagic anemia; I95.9 Hypotension, unspecified; D63.8 Anemia in other chronic diseases classified elsewhere; K25.0 Acute gastric ulcer with hemorrhage; B96.81 Helicobacter pylori [H. pylori] as the cause of diseases classified elsewhere; K64.8 Other hemorrhoids; E78.5 Hyperlipidemia, unspecified; F17.210 Nicotine dependence, cigarettes, uncomplicated; I87.8 Other specified disorders of veins; D72.829 Elevated white blood cell count, unspecified; I10 Essential (primary) hypertension; I07.1 Rheumatic tricuspid insufficiency; M10.9 Gout, unspecified; M25.532 Pain in left wrist; Z20.822 Contact with and (suspected) exposure to COVID-19; I87.2 Venous insufficiency (chronic) (peripheral); R79.89 Other specified abnormal findings of blood chemistry; Z79.899 Other long term (current) drug therapy; Z86.73 Personal history of transient ischemic attack (TIA), and cerebral infarction without residual deficits; Z83.3 Family history of diabetes mellitus; Z79.82 Long term (current) use of aspirin
CPT/HCPCS: 36415; 71045; 73110; 73630; 74176; 76705; 76775; 80048; 80053; 80074; 80202; 81001; 82728; 83540; 83550; 83615; 83735; 83880; 84484; 84550; 85014; 85018; 85025; 85610; 85730; 86850; 86900; 86901; 86922; 87040; 87077; 87186; 87205; 93005; 93970; 96361; 96365; 97110; 97116; 97163; 97530; C9113; G0378; J0696; J2250; J3490

== ENCOUNTER 2023-12-29 09:24 | Inpatient (IN) | payer MEDICARE, OTHER ==
[~2023-12-29] VITALS: Ht 185.4 cm; Wt 98.0 kg
[~2023-12-29 09:24] MED LIST changes: +ALLO100T PO; -CIPR-173 PO; +GABA-1250 PO; -GABA300C10 PO; -LOSA-39 PO; +LOSA-535 PO; -TAMS0.4C36 PO; +TAMS0.4C39 PO
--- NOTE | 2023-12-29 10:10 | ED.PDOC ---
Musculoskeletal HPI Comments A 68 YEAR OLD MALE PRESENTS TO THE ED WITH COMPLAINT OF BILATERAL LOWER LEG AND ANKLE SWELLING. PATIENT STATES HE HAS BEEN EXPERIENCING BILATERAL LOWER LEG, ANKLE, AND FOOT SWELLING WITH REDNESS AND PAIN FOR THE PAST 3 DAYS. PATIENT REPORTS HE HAS A HISTORY OF VENOUS STASIS DERMATITIS, CELLULITIS, AND A CIRCULATION PROBLEM IN HIS BILATERAL LOWER EXTREMITIES. PATIENT DENIES FEVER, CHILLS, SHORTNESS OF BREATH, CHEST PAIN, ABDOMINAL PAIN, NAUSEA, VOMITING, HEADACHE, OR OTHER COMPLAINTS. NO OTHER SYMPTOMS OR MODIFYING FACTORS AT THIS TIME. PATIENT IS ALERT, ORIENTED X 4, AND HAS STEADY GAIT. Chief Complaint: Lower Extremity Time Seen by MD: 09:28 Reviewed Notes: Nurses Notes, Medications, Allergies Allergies: Coded Allergies: NO KNOWN ALLERGIES (Unverified , 07/19/13) Home Meds Active Scripts Allopurinol (Allopurinol) 100 Mg Tab, 100 MG PO DAILY for 30 Days, #30 TAB 3 Refills Prov:MAKENZIE BENNETT MD 07/23/21 Reported Medications Furosemide (Furosemide) 40 Mg Tab, 1 TAB PO BID 05/19/21 Atorvastatin Calcium (ATORVASTATIN CALCIUM) 40 Mg Tab, 1 TAB PO DAILYPRN 05/19/21 Hctz (Hydrochlorothiazide) 25 Mg Tab, 1 TAB PO DAILYPRN 05/19/21 Metoprolol Succinate (Metoprolol Succinate Er) 100 Mg Tab, 1 TAB PO DAILYPRN 05/19/21 Gabapentin (Gabapentin) 300 Mg Cap, 1 CAP PO TID 05/19/21 Tamsulosin Hcl (Tamsulosin Hcl) 0.4 Mg Cap, 1 CAP PO DAILY 05/19/21 Hydrocodone-Acetaminophen (Hydrocodone Bitartrate/AC 10-300 mg) 1 Tab Tab 05/19/21 Nicotine (Nicotine Transdermal Syst) 14 Mg/24 Hr Dis, 1 PATCH TOP DAILYPRN 05/19/21 Losartan Potassium (Losartan Potassium) 100 Mg Tab, 1 TAB PO DAILY 05/19/21 Information Source: Patient Mode of Arrival: Ambulatory Location: Bilateral Extremity Location: Ankle, Foot, Leg Timing: Days Prehospital treatment: None Severity: Moderate Able to Move Extremity: Yes Bear Weight: Limited Pain: Moderate Mechanism: No Trauma, Spontaneous Circumstances: Spontaneous Onset of Symptoms: Spontaneous Symptoms: Swelling, Pain, Erythema DVT Risk Factors: NONE Last Tetanus: Unknown History of: Gout Associated signs and symptoms: Ankle pain, Leg pain, Foot pain Past Medical History PAST MEDICAL HISTORY: Arthritis, CKF, CVA, Gout, High Lipids, HTN Surgical History: Denies all surgeries Family History Family History: Reviewed,noncontributory to illness, Family hx of DM Social History Smoker: Cigarettes Alcohol: Occasionally Drugs: Denies Drug Use Lives In: Home Constitutional: denies: chills, diaphoresis, fatigue, fever, malaise, sweats, weakness, others EENTM: denies: blurred vision, double vision, ear bleeding, ear discharge, ear drainage, ear pain, ear ringing, eye pain, eye redness, hearing loss, mouth pain, mouth swelling, nasal discharge, nose bleeding, nose congestion, nose pain, photophobia, tearing, throat pain, throat swelling, voice changes, others Respiratory: denies: cough, hemoptysis, orthopnea, SOB at rest, shortness of breath, SOB with excertion, stridor, wheezing, others Cardiovascular: denies: chest pain, dizzy spells, diaphoresis, Dyspnea on exertion, edema, irregular heart beat, left arm pain, lightheadedness, palpitations, PND, syncope, others Gastrointestinal: denies: abdomen distended, abdominal pain, blood streaked bowels, constipated, diarrhea, dysphagia, difficulty swallowing, hematemesis, melena, nausea, poor appetite, poor fluid intake, rectal bleeding, rectal pain, vomiting, others Genitourinary: denies: burning, dysuria, flank pain, frequency, hematuria, incontinence, penile discharge, penile sore, pain, testicle pain, testicle swelling, urgency, others Neurological: denies: dizziness, fainting, headache, left sided numbness, left sided weakness, numbness, paresthesia, pre-existing deficit, right sided numbness, right sided weakness, seizure, speech problems, tingling, tremors, weakness, others Musculoskeletal: reports: joint pain, joint swelling, others (BILATERAL LOWER LEG, ANKLE, AND FOOT SWELLING WITH PAIN); denies: back pain, gout, muscle pain, muscle stiffness, neck pain Integumetry: reports: others (REDNESS OF BILATERAL LOWER LEGS, ANKLE, AND FEET); denies: bruises, change in color, change in hair/nails, dryness, laceration, lesions, lumps, rash, wounds Allergic/Immunocompromised: denies: Difficulty Healing, Frequent Infections, Hives, Itching, others Hematologic/Lymphatic: denies: anemia, blood clots, easy bleeding, easy bruising, swollen glands, others Endocrine: denies: excessive hunger, excessive sweating, excessive thirst, excessive urination, flushing, intolerance to cold, intolerance to heat, unexplained weight gain, unexplained weight loss, others Psychiatric: denies: anxiety, bipolar disorder, depression, hopeless, panic disorder, schizophrenia, sleepless, suicidal, others All Other Systems: Reviewed and Negative Physical Exam General Appearance: No Apparent Distress, Obese HEENT: Normal ENT Inspection, PERRL/EOMI, Pharynx Normal, TMs Normal Neck: Full Range of Motion, Non-Tender, Normal, Normal Inspection Respiratory: Chest Non-Tender, Lungs Clear, No Accessory Muscle Use, No Respiratory Distress, Normal Breath Sounds Cardiovascular: No Edema, No JVD, No Murmur, No Gallop, Normal Peripheral Pulses, Regular Rate/Rhythm Breast Exam: Deferred Gastrointestinal: No Organomegaly, Non Tender, No Pulsatile Mass, Normal Bowel Sounds, Soft Genitalia: Deferred Pelvic: Deferred Rectal: Deferred Extremities: Calf tenderness, Decreased range of motion, Inflammation, Leg edema, Normal capillary refill, Pedal edema (2+ PEDAL EDEMA BILATERAL ANKLE. ), Swelling (REDNESS AND SWELLING ON BILATERAL LOWER LEGS TO FEET, NO BONY TENDERN ESS AND DEFORMITY. ), Tender (ERYTHEMA AND SWELLING ON BILATERAL LOWER LEGS AND FEET. ) Musculoskeletal : Apperance: Normal Neurologic: Alert, general dentist II-XII nml as Tested, No Motor Deficits, Normal Affect, Normal Mood, No Sensory Deficits Cerebellar Function: Normal Reflexes: Normal Skin: Dry, Rash (LOCALIZED ERYTHEMA, SWELLING AND VENOUS STASIS DERMATITIS, NO OPEN WOUND OR DRAINAGE SEEN.), Warm Peripheral Pulses: 2+ carotid (R), 2+ carotid (L), 2+ dorsalis pedis (R), 2+ dorsalis pedis (L) Lymphatic: No Adenopathy Was a procedure done? Was a procedure done?: No Differential Diagnosis EXT Differential Diagnosis: Cellulitis, Deep Vein Thrombosis, Gout Other Differential Diagnosis ERYSIPELAS, VENOUS STASIS DERMATITIS, SUPERFICIAL THROMBOSIS X-Ray, Labs, Meds, VS Vital Signs Date Time Temp Pulse Resp B/P (MAP) Pulse Ox O2 Delivery O2 Flow Rate FiO2 12/29/23 11:23 98.6 73 20 117/64 (81) 97 98.6 12/29/23 10:00 98.7 89 18 109/64 (79) 96 98.7 12/29/23 10:00 89 18 96 Room Air 12/29/23 09:39 98.7 89 18 109/64 (79) 96 Lab Test 12/29/23 10:19 12/29/23 10:02 Range/Units White Blood Count 9.6 4.4-10.8 10^3/uL Red Blood Count 4.42 L 4.5-5.90 10^6/uL Hemoglobin 13.1 L 13.5-17.5 g/dL Hematocrit 38.9 L 41.0-53.0 % Mean Corpuscular Volume 88.1 80.0-100.0 fL Mean Corpuscular Hemoglobin 29.6 28.0-32.0 pg Mean Corpuscular Hemoglobin Concent 33.6 32.0-36.0 g/dL Red Cell Distribution Width 15.0 H 11.8-14.3 % Platelet Count 177 140-450 10^3/uL Mean Platelet Volume 8.4 6.9-10.8 fL Neutrophils (%) (Auto) 77.9 37.0-80.0 % Lymphocytes (%) (Auto) 8.5 L 10.0-50.0 % Monocytes (%) (Auto) 11.1 0.0-12.0 % Eosinophils (%) (Auto) 1.5 0.0-7.0 % Basophils (%) (Auto) 1.0 0.0-2.0 % Neutrophils # (Auto) 7.5 1.6-8.6 10 ^3/uL Lymphocytes # (Auto) 0.8 0.4-5.4 10 ^3/uL Monocytes # (Auto) 1.1 0-1.3 10 ^3/uL Eosinophils # (Auto) 0.1 0-0.8 10 ^3/uL Basophils # (Auto) 0.1 0-0.2 10 ^3/uL Nucleated Red Blood Cells 0.1 % Sodium Level 137 136-145 mmol/L Potassium Level 3.6 3.5-5.1 mmol/L Chloride Level 107 98-107 mmol/L Carbon Dioxide Level 24 20-31 mmol/L Anion Gap 6 5-15 Blood Urea Nitrogen 27 H 9-23 mg/dL Creatinine 2.22 H 0.700-1.30 mg/dL Glomerular Filtration Rate Calc 31 >90 mL/min BUN/Creatinine Ratio 12.2 10.0-20.0 Serum Glucose 109 H 74-106 mg/dL Lactic Acid Level 1.2 0.4-2.0 mmol/L Uric Acid 9.3 H 3.7-9.2 mg/dL Calcium Level 9.9 8.7-10.4 mg/dL B-Type Natriuretic Peptide 3.84 0-100 pg/mL Urine Color Yellow Yellow Urine Clarity Clear Clear Urine pH 5.5 5.0-9.0 Urine Specific [place] 1.016 1.001-1.035 Urine Protein Trace H Negative Urine Ketones Negative Negative Urine Blood Trace H Negative /uL Urine Nitrite Negative Negative Urine Bilirubin Negative Negative Urine Urobilinogen 2 H Negative mg/dL Urine Leukocyte Esterase Negative Negative /uL Urine RBC 5 0 - 3 /hpf Urine WBC 1 0 - 3 /hpf Urine Squamous Epithelial Cells Few <5 /hpf Urine Bacteria None seen None Seen /hpf Urine Hyaline Casts Few 0 - 2 /lpf Urine Glucose Normal Normal mg/dL Current Medications Medications (Trade) Dose Ordered Sig/Yoanna Route Start Time Stop Time Status Last Admin Ceftriaxone Sodium 50 ml @ 100 mls/hr ONCE ONCE IV 12/29/23 11:00 12/29/23 11:29 DC 12/29/23 11:24 Clindamycin Phosphate 50 ml @ 50 mls/hr ONCE ONCE IV 12/29/23 11:00 12/29/23 11:59 DC 12/29/23 11:24 Sodium Chloride 1,000 ml @ 150 mls/hr Q6H40M ONCE IV 12/29/23 12:15 12/29/23 18:54 12/29/23 12:55 Bilateral lower extremity venous duplex Clinical History: BILATERAL LOWER LEG REDNESS AND SWELLING Comparison: BUDVT on DOS: 07/25/21, BLDVT on DOS: 07/19/21 Technique: Duplex Doppler evaluation of the deep venous systems of both lower extremities from the common femoral veins to the popliteal veins including color Doppler and spectral/pulsed waveform analysis was performed. Findings: RIGHT SIDE: The common femoral vein demonstrates appropriate compressibility and waveform variability . There is compressibility/patency of the great saphenous vein at the proximal thigh . The femoral vein demonstrates appropriate compressibility and waveform variability . The deep femoral vein demonstrates appropriate compressibility and waveform variability . The popliteal vein demonstrates appropriate compressibility and waveform variability . There is color flow at the tibioperoneal trunk and in the posterior tibial vein. Benign-appearing, prominent femoral canal lymph nodes noted measuring up to 5.5 x 1.3 cm. Subcutaneous edema noted in the calf. LEFT SIDE: The common femoral vein demonstrates appropriate compressibility and waveform variability . There is compressibility/patency of the great saphenous vein at the proximal thigh . The femoral vein demonstrates appropriate compressibility and waveform variability . The deep femoral vein demonstrates appropriate compressibility and waveform variability . The popliteal vein demonstrates appropriate compressibility and waveform variability . There is color flow at the tibioperoneal trunk and in the posterior tibial vein. Prominent, benign-appearing femoral canal lymph nodes measuring up to 3.4 x 1.1 cm. A large, 7.8 x 3.5 cm Robledo's cyst noted. Impression: 1. No right or left femoropopliteal venous thrombosis. 2. Subcutaneous edema in the right calf noted. 3. Large left robledo's cyst. 4. Prominent but benign-appearing bilateral femoral canals lymph nodes likely reactive in nature. ATED BY: LIZETTE SUERO MD DICTATED DATE/TIME: 12/29/23 1054 SIGNED BY: LIZETTE SUERO MD SIGNED DATE/TIME: 12/29/23 1054 CC: X-Ray, Labs, Meds, VS Comment LABS ORDERED: CBC, BMP, BNP, LACTIC ACID W/REFLUX, BLOOD CULTURE, UA, URIC ACID REVIEWED AND INTERPRETED RESULTS: URIC ACID 9.3 TREATMENT: ROCEPHIN 1 G IV, CLINDAMYCIN 900 MG IV, 0.9 NS 150ML/HOUR A 68 YEAR OLD MALE PRESENTED TO THE ED C/O BILATERAL LOWER LEG, ANKLE, AND FOOT SWELLING WITH REDNESS FOR THE PAST 3 DAYS. PATIENT NOTED HE HAS A HISTORY OF VENOUS STASIS DERMATITIS AND CIRCULATION PROBLEMS IN HIS BILATERAL LOWER EXTREMITIES. UPON MY PHYSICAL EXAMINATION, THE PATIENT HAD REDNESS AND SWELLING CONSISTENT WITH CELLULITIS AND VENOUS STASIS DERMATITIS, BUT NO OPEN WOUND OR DRAINAGE NOTED. MY DIFFERENTIAL DIAGNOSIS INCLUDES, ERYSIPELAS, CELLULITIS, DVT, SUPERFICIAL THROMBOSIS, GOUT, VENOUS STASIS DERMATITIS. LABS WERE ORDERED FOR THE PATIENT AND THERE WERE NO ACUTE FINDINGS. AN ULTRASOUND OF HIS BI LATERAL LOWER LEGS WAS DONE WHICH REVEALED SUBCUTANEOUS EDEMA AND A LARGE 7.8 X 3.5 CM ROBLEDO CYST IN HIS LEFT LOWER EXTREMITY, BUT NO DVT WAS SEEN AT THIS TIME. PATIENT WAS MEDICATED HERE IN THE ED WITH ROCEPHIN 1 G IV AND CLINDAMYCIN 900 MG IV. DUE TO THE PATIENT'S CLINICAL FINDINGS SUGGEST DONE ACUTE CELLULITIS AND VENOUS STASIS DERMATITIS, I HAVE DETERMINED THE PATIENT SHOULD BE ADMITTED TO THIS HOSPITAL FOR FURTHER TREATMENT AND EVALUATION. THE ON-CALL HOSPITALIST WILL BE CONTACTED FOR ADMISSION OF THIS PATIENT. Images Reviewed?: Images reviewed and evaluated by me Time of 1ST Reevaluation: 12:00 Reevaluation 1ST: Unchanged Patient Education/Counseling: Diagnosis, Treatment Family Education/Counseling: Diagnosis, Treatment Departure 1 Departure Time of Disposition: 12:00 Impression: Primary Impression: Recurrent cellulitis of lower extremity Additional Impressions: Venous stasis of both lower extremities Synovial cyst of popliteal space [Robledo], left knee Disposition: ADMITTED INPATIENT Admit to: Med Surg Condition: Serious Critical Care Note Critical Care Time?: No Stability Stability form required: No Unstable for transfer: Requires medication, ED Physician Assesment, Possible rapid decline Heart Score Heart Score: Heart Score Response (Comments) Value History N/A 0 EKG N/A 0 Age N/A 0 Risk Factors N/A 0 Troponin N/A 0 Total 0 I personally scribed for CHANTEL VENTURA ([email or web address]) on 12/29/23 at 10:10. Electronically submitted by Chad Puentes ([employer]). I personally scribed for CHANTEL VENTURA ([email or web address]) on 12/29/23 at 10:31. Electronically submitted by Chad Puentes ([email or web address]). I personally scribed for CHANTEL VENTURA ([email or web address]) on 12/29/23 at 11:29. Electronically submitted by Chad Puentes ([email or web address]). I personally scribed for CHANTEL VENTURA ([email or web address]) on 12/29/23 at 11:47. Electronically submitted by Chad Puentes (Factery). CHANTEL VENTURA Dec 29, 2023 10:10
[2023-12-29 10:37] LABS: Urine Bacteria None Seen /hpf (None Seen)
[2023-12-29 10:44] LABS: Basophils # (auto) 0.1 10 ^3/uL (0-0.2); Eosinophils # (auto) 0.1 10 ^3/uL (0-0.8); Eosinophils % (auto) 1.5 % (0.0-7.0); Hematocrit 38.9 % (41.0-53.0); Hemoglobin 13.1 g/dL (13.5-17.5); Lymphocytes # (auto) 0.8 10 ^3/uL (0.4-5.4); Lymphocytes % (auto) 8.5 % (10.0-50.0); Mean Corpuscular Hemoglobin 29.6 pg (28.0-32.0); Mean Corpuscular Hgb Conc. 33.6 g/dL (32.0-36.0); Mean Corpuscular Volume 88.1 fL (80.0-100.0); Monocytes # (auto) 1.1 10 ^3/uL (0-1.3); Monocytes % (auto) 11.1 % (0.0-12.0); Neutrophils # (auto) 7.5 10 ^3/uL (1.6-8.6); Neutrophils % (auto) 77.9 % (37.0-80.0); Nucleated Red Blood Cells % 0.1 %; Platelet Count (auto) 177 10^3/uL (140-450); Red Blood Cells 4.42 10^6/uL (4.5-5.90); White Blood Cell 9.6 10^3/uL (4.4-10.8)
[2023-12-29 10:54] LABS: Urine Blood TRACE /uL (Negative); Urine Clarity Clear (Clear); Urine Color Yellow (Yellow); Urine Hyaline Cast FEW /lpf (0 - 2); Urine Protein, UAD TRACE (Negative); Urine Specific Gravity 1.016 (1.001-1.035); Urine Urobilinogen 2 mg/dL (Negative); Urine WBC 1 /hpf (0 - 3); Urine pH 5.5 (5.0-9.0)
--- NOTE | 2023-12-29 10:56 | DVH ---
Bilateral lower extremity venous duplex Clinical History: BILATERAL LOWER LEG REDNESS AND SWELLING Comparison: BUDVT on DOS: 07/25/21, BLDVT on DOS: 07/19/21 Technique: Duplex Doppler evaluation of the deep venous systems of both lower extremities from the common femora l veins to the popliteal veins including color Doppler and spectral/pulsed waveform analysis was perf ormed. Findings: RIGHT SIDE: The common femoral vein demonstrates appropriate compressibility and waveform variability . There is compressibility/patency of the great saphenous vein at the proximal thigh . The femoral vein demonstrates appropriate compressibility and waveform variability . The deep femoral vein demonstrates appropriate compressibility and waveform variability . The popliteal vein demonstrates appropriate compressibility and waveform variability . There is color flow at the tibioperoneal trunk and in the posterior tibial vein. Benign-appearing, prominent femoral canal lymph nodes noted measuring up to 5.5 x 1.3 cm. Subcutaneous edema noted in the calf. LEFT SIDE: The common femoral vein demonstrates appropriate compressibility and waveform variability . There is compressibility/patency of the great saphenous vein at the proximal thigh . The femoral vein demonstrates appropriate compressibility and waveform variability . The deep femoral vein demonstrates appropriate compressibility and waveform variability . The popliteal vein demonstrates appropriate compressibility and waveform variability . There is color flow at the tibioperoneal trunk and in the posterior tibial vein. Prominent, benign-appearing femoral canal lymph nodes measuring up to 3.4 x 1.1 cm. A large, 7.8 x 3.5 cm Robledo's cyst noted. Impression: 1. No right or left femoropopliteal venous thrombosis. 2. Subcutaneous edema in the right calf noted. 3. Large left robledo's cyst. 4. Prominent but benign-appearing bilateral femoral canals lymph nodes likely reactive in nature.
[2023-12-29 11:09] LABS: Anion Gap 6 (5-15); Carbon Dioxide 24 mmol/L (20-31); Chloride 107 mmol/L (98-107); Potassium 3.6 mmol/L (3.5-5.1); Sodium 137 mmol/L (136-145)
[2023-12-29 11:10] LABS: Calcium 9.9 mg/dL (8.7-10.4)
[2023-12-29 11:14] LABS: Uric Acid 9.3 mg/dL (3.7-9.2)
[2023-12-29 11:15] LABS: BUN/Creatinine Ratio 12.2 (10.0-20.0); Blood Urea Nitrogen 27 mg/dL (9-23); Glucose 109 mg/dL (74-106)
[2023-12-29 11:20] VITALS: RESP 16; O2SAT 96
[2023-12-29] MEDS: cefTRIAXone 1GM/50ML D5W 50 ML IV ONE (11:24)
[2023-12-29] MEDS: CLINDAMYCIN 900MG IV 50 ML IV ONE (11:24)
[2023-12-29] MEDS ORDERED: ACETAMINOPHEN 325 MG TAB PO PRN (12:30)
--- NOTE | 2023-12-29 12:53 | DVHHP2 ---
History of Present Illness Reason for Visit: Leg Pain and swelling History of Present Illness 68 yo obese male renal insufficiency, gout , htn comes to the ed stated worsening swelling and tightness with pain in the legs for the last 3 days patient doesn't seem to be compliant to medication regimen but is having acute exacerbation of chronic issued with suspected possible super imposed infection Cardiovascular: CHF, HTN, hyperipidemia Renal/: Chronic renal insuff Review of Systems Constitutional: No: Fever, Chills, Sweats, Weakness, Malaise, Other Eyes: No: Pain, Vision change, Conjunctivae inflammation, Eyelid inflammation, Other, Redness ENT: No: Ear pain, Ear discharge, Nose pain, Nose discharge, Nose congestion, Mouth pain, Mouth swelling, Throat pain, Throat swelling, Other Respiratory: No: Cough, Dry, Shortness of breath, SOB with excertion, Wheezing, Hemoptysis, Pleuritic Pain, Sputum, Wheezing, Other Cardiovascular: No: Chest Pain, Palpitations, Orthopnea, Paroxysmal Noc. Dyspnea, Edema, Lt Headedness, Other Gastrointestinal: No: Nausea, Vomiting, Abdominal Pain, Diarrhea, Constipation, Melena, Hematochezia, Other Genitourinary: No Dysuria, No Frequency, No Incontinence, No Hematuria, No Retention, No Other Musculoskeletal: leg pain; No: other, neck pain, shoulder pain, arm pain, back pain, hand pain, foot pain Skin: Rash; No: Lesions, Jaundice, Bruising, Other Neurological: No: Weakness, Numbness, Incoordination, Change in speech, Confusion, Seizures, Other Allergies: Coded Allergies: NO KNOWN ALLERGIES (Unverified , 07/19/13) Medications Current Medications Medications Dose Ordered Sig/Yoanna Route Start Time Stop Time Status Last Admin Dose Admin Ceftriaxone Sodium 50 ml @ 100 mls/hr DAILY@0900 IV 12/30/23 09:00 Clindamycin Phosphate 50 ml @ 50 mls/hr TID IV 12/29/23 14:00 UNV Acetaminophen 650 mg Q6HP PRN PO 12/29/23 12:30 Furosemide 40 mg BID IV 12/29/23 22:00 UNV Exam Vital Signs Vital Signs Date Time Temp Pulse Resp B/P (MAP) Pulse Ox O2 Delivery O2 Flow Rate FiO2 12/29/23 11:23 98.6 73 20 117/64 (81) 97 98.6 12/29/23 10:00 Room Air General Appearance: Alert, Oriented X3 HEENT: Atraumatic, PERRLA Respiratory: Clear to auscultation Cardiovascular: Regular rate Abdominal: Normal bowel sounds Extremities: Other (positive for edema and swelling ) Skin: No significant lesion Neuro: Normal gait, Normal speech Psych/Mental Status: Mood NL Labs/Xrays Labs Test 12/29/23 10:19 12/29/23 10:02 Range/Units White Blood Count 9.6 4.4-10.8 10^3/uL Red Blood Count 4.42 L 4.5-5.90 10^6/uL Hemoglobin 13.1 L 13.5-17.5 g/dL Hematocrit 38.9 L 41.0-53.0 % Mean Corpuscular Volume 88.1 80.0-100.0 fL Mean Corpuscular Hemoglobin 29.6 28.0-32.0 pg Mean Corpuscular Hemoglobin Concent 33.6 32.0-36.0 g/dL Red Cell Distribution Width 15.0 H 11.8-14.3 % Platelet Count 177 140-450 10^3/uL Mean Platelet Volume 8.4 6.9-10.8 fL Neutrophils (%) (Auto) 77.9 37.0-80.0 % Lymphocytes (%) (Auto) 8.5 L 10.0-50.0 % Monocytes (%) (Auto) 11.1 0.0-12.0 % Eosinophils (%) (Auto) 1.5 0.0-7.0 % Basophils (%) (Auto) 1.0 0.0-2.0 % Neutrophils # (Auto) 7.5 1.6-8.6 10 ^3/uL Lymphocytes # (Auto) 0.8 0.4-5.4 10 ^3/uL Monocytes # (Auto) 1.1 0-1.3 10 ^3/uL Eosinophils # (Auto) 0.1 0-0.8 10 ^3/uL Basophils # (Auto) 0.1 0-0.2 10 ^3/uL Nucleated Red Blood Cells 0.1 % Sodium Level 137 136-145 mmol/L Potassium Level 3.6 3.5-5.1 mmol/L Chloride Level 107 98-107 mmol/L Carbon Dioxide Level 24 20-31 mmol/L Anion Gap 6 5-15 Blood Urea Nitrogen 27 H 9-23 mg/dL Creatinine 2.22 H 0.700-1.30 mg/dL Glomerular Filtration Rate Calc 31 >90 mL/min BUN/Creatinine Ratio 12.2 10.0-20.0 Serum Glucose 109 H 74-106 mg/dL Lactic Acid Level 1.2 0.4-2.0 mmol/L Uric Acid 9.3 H 3.7-9.2 mg/dL Calcium Level 9.9 8.7-10.4 mg/dL B-Type Natriuretic Peptide 3.84 0-100 pg/mL Urine Color Yellow Yellow Urine Clarity Clear Clear Urine pH 5.5 5.0-9.0 Urine Specific [place] 1.016 1.001-1.035 Urine Protein Trace H Negative Urine Ketones Negative Negative Urine Blood Trace H Negative /uL Urine Nitrite Negative Negative Urine Bilirubin Negative Negative Urine Urobilinogen 2 H Negative mg/dL Urine Leukocyte Esterase Negative Negative /uL Urine RBC 5 0 - 3 /hpf Urine WBC 1 0 - 3 /hpf Urine Squamous Epithelial Cells Few <5 /hpf Urine Bacteria None seen None Seen /hpf Urine Hyaline Casts Few 0 - 2 /lpf Urine Glucose Normal Normal mg/dL Assessment/Plan Assessment/Plan Admit Med/surge History CHF Acute Chronic insufficiency possible fluid overload 3+ pitting edema b/l leg swelling and pain doesn't appear complaint to home med restart previous regimen Suspected Cellulitis IV abx Rocephin IV abx clindamycin continued d/c if no further signs of infection suspected strong venous stasis swelling Plan discussed with: Patient My Orders Orders - FE BRENNAN MD Procedure Category Date Status Time Ceftriaxone 1gm/50ml PHA 12/30/23 In Process D5w (Rocephin) 09:00 Clindamycin 300mg Iv PHA 12/29/23 In Process (Cleocin Iv) 14:00 Admit ADMIT 12/29/23 Transmitted 12:29 Code Status CODE 12/29/23 Transmitted 12:29 Vital Signs THERESA 12/29/23 In Process 12:29 Review Orders With THERESA 12/29/23 In Process Adm. 12:29 Regular Diet DIET 12/29/23 Transmitted Lunch Acetaminophen Tablet PHA 12/29/23 In Process (Tylenol Tablet) 12:30 Notify Of Changes THERESA 12/29/23 In Process From Base 12:29 Advance Directive THERESA 12/29/23 In Process 12:29 Patient Condition ORDERS 12/29/23 Transmitted 12:29 Allergies THERESA 12/29/23 In Process 12:29 Notify Md Of Changes THERESA 12/29/23 In Process From Base 12:29 Emergency Dysrhythmia THERESA 12/29/23 In Process Protocol 12:29 Oxygen By Nasal RT 12/29/23 Transmitted Cannula 12:29 Furosemide Injection PHA 12/29/23 In Process (Lasix Injection) 18:00 Allopurinol Tablet PHA 12/30/23 Logged (Zyloprim Tablet) 10:00 Gabapentin Capsule PHA 12/29/23 Logged (Neurontin Capsule) 14:00 Hydrochlorothiazide PHA 12/30/23 Logged Tablet (Hydrochlorot 10:00 Nicotine 14mg/24hr PHA 12/30/23 Logged (Nicoderm 14mg/24hr) 10:00 Tamsulosin PHA 12/30/23 Logged Hydrochloride (Flomax) 10:00 (Nf) Atorvastatin PHA 12/30/23 Logged Calcium 10:00 (Nf) Losartan PHA 12/30/23 Logged Potassium 10:00 (Nf) Metoprolol PHA 12/30/23 Logged Succinate (Metoprolol 10:00 Date of Service: Dec 29, 2023 Billing Provider: FE BRENNAN MD Common Visit Codes: 79007-[id number] INP/OBS CARE (MOD) FE BRENNAN MD Dec 29, 2023 12:53
[2023-12-29] MEDS: SODIUM CHLORIDE 0.9% 1,000 ML IV ONE (12:55)
[2023-12-29] MEDS: GABAPENTIN 300 MG CAP PO SCH (14:25)
[2023-12-29] MEDS: CLINDAMYCIN 300MG IV 50 ML IV SCH (15:11)
[2023-12-29] MEDS: TAMSULOSIN HYDROCHLORIDE 0.4 MG CAP PO SCH (18:18)
[2023-12-29] MEDS: FUROSEMIDE 40 MG/4 ML VIAL IV SCH (18:24)
[2023-12-29 18:44] VITALS: PULSE 74; RESP 19; O2SAT 97
[2023-12-29] MEDS ORDERED: OXYC-963 (20:14)
[2023-12-29] MEDS ORDERED: AMLO1TAB22 PO (20:14)
[2023-12-29 22:00] VITALS: BP 121/64; PULSE 73; RESP 18; TEMP 98; O2SAT 100
[2023-12-29] MEDS: ATORVASTATIN 20 MG TAB PO SCH (22:06)
[2023-12-30] VITALS (8 sets, daily range): BP systolic 94–130; BP diastolic 44–71; PULSE 70–97; RESP 16–20; TEMP 97.8–99.7; O2SAT 92–96
[2023-12-30] MEDS: cefTRIAXone 1GM/50ML D5W 50 ML IV SCH (09:14)
[2023-12-30] MEDS: LOSARTAN POTASSIUM 50 MG TAB PO SCH (09:15)
[2023-12-30] MEDS: ALLOPURINOL 100 MG TAB PO SCH (09:15)
[2023-12-30] MEDS: METOPROLOL SUCCINATE XL 50 MG TAB PO SCH (09:15)
[2023-12-30] MEDS: NICOTINE 14 MG/24HR TOPICAL PATCH TD SCH (09:20)
[2023-12-30] MEDS: hydroCHLOROthiazide 25 MG TAB PO SCH (10:00)
--- NOTE | 2023-12-30 13:28 | DVHPN2 ---
Changes from previous H/P or p: No Changes Eyes: No Pain, No Vision change, No Conjunctivae inflammation, No Eyelid inflammation, No Other, No Redness ENT: No Ear pain, No Ear discharge, No Nose pain, No Nose discharge, No Nose congestion, No Mouth pain, No Mouth swelling, No Throat pain, No Throat swelling, No Other Cardiovascular: No Chest Pain, No Palpitations, No Orthopnea, No Paroxysmal Noc. Dyspnea, No Edema, No Lt Headedness, No Other Respiratory: No Cough, No Dry, No Shortness of breath, No SOB with excertion, No Wheezing, No Hemoptysis, No Pleuritic Pain, No Sputum, No Other Gastrointestinal: No Nausea, No Vomiting, No Abdominal Pain, No Diarrhea, No Constipation, No Melena, No Hematochezia, No Other Genitourinary: No Dysuria, No Frequency, No Incontinence, No Hematuria, No Retention, No Other Musculoskeletal: No other, No neck pain, No shoulder pain, No arm pain, No back pain, No hand pain; leg pain; No foot pain Skin: Rash; No Lesions, No Jaundice, No Bruising, No Other Objective Vitals Vital Signs Date Time Temp Pulse Resp B/P (MAP) Pulse Ox O2 Delivery O2 Flow Rate FiO2 12/30/23 09:15 72 124/71 12/30/23 09:00 97.8 20 96 97.8 12/30/23 08:00 Room Air* 0 21 Intake/Output Intake and Output 12/30/23 07:00 Intake Total 1600 ml Balance 1600 ml Intake Oral 500 ml IV Total 1100 ml # Voids 5 Medications Current Medications Medications Dose Ordered Sig/Yoanna Route Start Time Stop Time Status Last Admin Dose Admin Ceftriaxone Sodium 50 ml @ 100 mls/hr DAILY@0900 IV 12/30/23 09:00 12/30/23 09:14 100 MLS/HR Clindamycin Phosphate 50 ml @ 50 mls/hr TID IV 12/29/23 14:00 12/30/23 05:59 50 MLS/HR Acetaminophen 650 mg Q6HP PRN PO 12/29/23 12:30 Furosemide 40 mg BIDD IV 12/29/23 18:00 12/30/23 06:00 40 MG Allopurinol 100 mg DAILY PO 12/30/23 10:00 12/30/23 09:15 100 MG Gabapentin 300 mg TID PO 12/29/23 14:00 12/30/23 06:00 300 MG Hydrochlorothiazide 25 mg DAILY PO 12/30/23 10:00 Nicotine 1 patch DAILYPRN TD 12/30/23 10:00 Hold 12/30/23 09:20 1 PATCH Tamsulosin HCl 0.4 mg QPM PO 12/29/23 18:00 12/29/23 18:18 0.4 MG Atorvastatin Calcium 40 mg HS PO 12/29/23 22:00 12/29/23 22:06 40 MG Losartan Potassium 100 mg DAILY PO 12/30/23 10:00 12/30/23 09:15 100 MG Metoprolol Succinate 100 mg DAILY PO 12/30/23 10:00 12/30/23 09:15 100 MG Laboratory Results Laboratory Tests 12/29/23 10:19 Urinalysis Test 12/29/23 10:02 Urine Color Yellow (Yellow) Urine Clarity Clear (Clear) Urine pH 5.5 (5.0-9.0) Urine Specific Anderson 1.016 (1.001-1.035) Urine Protein Trace (Negative) H Urine Ketones Negative (Negative) Urine Blood Trace /uL (Negative) H Urine Nitrite Negative (Negative) Urine Bilirubin Negative (Negative) Urine Urobilinogen 2 mg/dL (Negative) H Urine Leukocyte Esterase Negative /uL (Negative) Urine RBC 5 /hpf (0 - 3) Urine WBC 1 /hpf (0 - 3) Urine Squamous Epithelial Cells Few /hpf (<5) Urine Bacteria None seen /hpf (None Seen) Urine Hyaline Casts Few /lpf (0 - 2) Urine Glucose Normal mg/dL (Normal) Microbiology Microbiology Date/Time Source Procedure Growth Status 12/29/23 10:19 Blood Blood Culture - Preliminary NO GROWTH AFTER 24 HOURS OF INCUBATION. Resulted Labs and/or images reviewed: Labs reviewed by me, Image(s) reviewed by me Assessment/Plan Assessment/Plan Bilateral lower leg cellulitis: Rocephin clindamycin Hypertension Hypercholesterolemia CKD Gout Chronic venous insufficiency Chronic congestive heart failure Time spent 55 minutes Condition guarded Advanced care planning time 20 minutes Patient is full code Plan discussed with: Patient Date of Service: Dec 30, 2023 Billing Provider: CESAR TRIANA MD Common Visit Codes: [id number] INP/OBS CARE(HIGH) Secondary Visit Codes: [id number] CARE PLAN 30 MINUTES CESAR TRIANA MD Dec 30, 2023 13:28
--- NOTE | 2023-12-30 16:33 | DVHINCON2 ---
Date Seen: Dec 30, 2023 Referring Physician MD Samir Reason for Consultation Worsening CHF History of Present Illness This is a 68-year-old man who presented to the emergency room with a chief complaint of bilateral lower leg edema for two days. Patient reports chronic venous insufficiency with a associated chronic bilateral lower extremity edema which has worsened during the past two days. Upon assessment, the patient was found with bilateral lower extremity erythema which was touch. He denies chest pain, palpitations, diaphoresis, shortness of breath, or syncopal events. Patient denies a medical history of congestive heart failure. There was no 12 lead electrocardiogram and file. BNP level is negative. 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 Of note, previous providers documented history of CHF which the patient denies. Past Medical History Past medical history reviewed. No other significant than mentioned above. Past Surgical History Right knee replacement Family History: Hypertension Family History Family history reviewed. Social History Denies the use of illicit drugs, alcohol, or tobacco use. Allergies: Coded Allergies: NO KNOWN ALLERGIES (Unverified , 07/19/13) Home Meds Active Scripts Allopurinol (Allopurinol) 100 Mg Tab, 100 MG PO DAILY for 30 Days, #30 TAB 3 Refills Prov:MAKENZIE BENNETT MD 07/23/21 Reported Medications Oxycodone W/ Acetaminophen (Oxycodone/Acetaminophen 10-300 mg) 1 Tab Tab 12/29/23 Amlodipine Besylate (Amlodipine Besylate) 5 Mg Tab, 1 TAB PO DAILY 12/29/23 Furosemide (Furosemide) 40 Mg Tab, 1 TAB PO BID 05/19/21 Atorvastatin Calcium (ATORVASTATIN CALCIUM) 40 Mg Tab, 1 TAB PO DAILYPRN 05/19/21 Hctz (Hydrochlorothiazide) 25 Mg Tab, 1 TAB PO DAILYPRN 05/19/21 Metoprolol Succinate (Metoprolol Succinate Er) 100 Mg Tab, 1 TAB PO DAILYPRN 05/19/21 Gabapentin (Gabapentin) 300 Mg Cap, 1 CAP PO TID 05/19/21 Tamsulosin Hcl (Tamsulosin Hcl) 0.4 Mg Cap, 1 CAP PO DAILY 05/19/21 Hydrocodone-Acetaminophen (Hydrocodone Bitartrate/AC 10-300 mg) 1 Tab Tab 05/19/21 Nicotine (Nicotine Transdermal Syst) 14 Mg/24 Hr Dis, 1 PATCH TOP DAILYPRN 05/19/21 Losartan Potassium (Losartan Potassium) 100 Mg Tab, 1 TAB PO DAILY 05/19/21 Home Meds Home medications reviewed. Current Medications Current Medications Medications (Trade) Dose Ordered Sig/Yoanna Route PRN Reason Start Time Stop Time Status Last Admin Ceftriaxone Sodium 50 ml @ 100 mls/hr DAILY@0900 IV 12/30/23 09:00 12/30/23 09:14 Furosemide (Lasix Injection) 40 mg BIDD IV 12/29/23 18:00 12/30/23 06:00 Allopurinol (Zyloprim Tablet) 100 mg DAILY PO 12/30/23 10:00 12/30/23 09:15 Hydrochlorothiazide (hydroCHLOROthiazide TABLET) 25 mg DAILY PO 12/30/23 10:00 Nicotine (Nicoderm 14MG/ 24HR) 1 patch DAILYPRN TD 12/30/23 10:00 Hold 12/30/23 09:20 Tamsulosin HCl (Flomax) 0.4 mg QPM PO 12/29/23 18:00 12/29/23 18:18 Atorvastatin Calcium (Lipitor) 40 mg HS PO 12/29/23 22:00 12/29/23 22:06 Losartan Potassium (Cozaar Tablet) 100 mg DAILY PO 12/30/23 10:00 12/30/23 09:15 Metoprolol Succinate (Toprol Xl) 100 mg DAILY PO 12/30/23 10:00 12/30/23 09:15 Review of Systems Constitutional: No symptom reported Ears, Nose, & Throat: No symptom reported Eyes: No symptom reported Neurological: No symptoms reported Pulmonary/Respiratory: No symptom reported Cardiovascular: No symptom reported Gastrointestinal: No symptom reported Genitourinary: No symptom reported Musculoskeletal: BLE edema Skin: No symptom reported Psychiatric: No symptom reported Endocrine: No symptom reported Hemotologic/Lymphatic: No symptom reported Vital Signs Vital Signs Date Time Temp Pulse Resp B/P (MAP) Pulse Ox O2 Delivery O2 Flow Rate FiO2 12/30/23 09:15 72 124/71 12/30/23 09:00 97.8 20 96 97.8 12/30/23 08:00 Room Air* 0 21 Physical Exam General Appearance: Cooperative. Well developed. Obese. In no acute distress Head Exam: Normal inspection Neck Exam: Normal inspection. Non-tender. Normal alignment Pulmonary/Respiratory: Chest non-tender. Clear bilateral breath sounds Cardiovascular/Chest: Regular rate and rhythm. S1, S2. Sinus rhythm. No murmurs. No JVD. Peripheral Pulses: 2+ Radial (R). 2+ Radial (L). 2+ Pedal (R). 2+ Pedal (L) Abdominal Exam: Normal bowel sounds. Soft. Nontender. No hepatospenomegaly. No masses Ankle Exam: Positive ankle edema. Right ankle deformation Lower extremities: Positive lower extremity edema. BLE erythema. Venous ulcers present Neuro/Mental Status: A&O x4. Coherent Thoughts/Psych: Normal thought pattern. Appropriate mood and affect. Good judgement and insight Appearance: In no acute distress Skin Exam: Erythema to BLE with associated venous ulcers Labs/Diagnostic Data Labs Test 12/29/23 10:19 12/29/23 10:02 Range/Units White Blood Count 9.6 4.4-10.8 10^3/uL Red Blood Count 4.42 L 4.5-5.90 10^6/uL Hemoglobin 13.1 L 13.5-17.5 g/dL Hematocrit 38.9 L 41.0-53.0 % Mean Corpuscular Volume 88.1 80.0-100.0 fL Mean Corpuscular Hemoglobin 29.6 28.0-32.0 pg Mean Corpuscular Hemoglobin Concent 33.6 32.0-36.0 g/dL Red Cell Distribution Width 15.0 H 11.8-14.3 % Platelet Count 177 140-450 10^3/uL Mean Platelet Volume 8.4 6.9-10.8 fL Neutrophils (%) (Auto) 77.9 37.0-80.0 % Lymphocytes (%) (Auto) 8.5 L 10.0-50.0 % Monocytes (%) (Auto) 11.1 0.0-12.0 % Eosinophils (%) (Auto) 1.5 0.0-7.0 % Basophils (%) (Auto) 1.0 0.0-2.0 % Neutrophils # (Auto) 7.5 1.6-8.6 10 ^3/uL Lymphocytes # (Auto) 0.8 0.4-5.4 10 ^3/uL Monocytes # (Auto) 1.1 0-1.3 10 ^3/uL Eosinophils # (Auto) 0.1 0-0.8 10 ^3/uL Basophils # (Auto) 0.1 0-0.2 10 ^3/uL Nucleated Red Blood Cells 0.1 % Sodium Level 137 136-145 mmol/L Potassium Level 3.6 3.5-5.1 mmol/L Chloride Level 107 98-107 mmol/L Carbon Dioxide Level 24 20-31 mmol/L Anion Gap 6 5-15 Blood Urea Nitrogen 27 H 9-23 mg/dL Creatinine 2.22 H 0.700-1.30 mg/dL Glomerular Filtration Rate Calc 31 >90 mL/min BUN/Creatinine Ratio 12.2 10.0-20.0 Serum Glucose 109 H 74-106 mg/dL Lactic Acid Level 1.2 0.4-2.0 mmol/L Uric Acid 9.3 H 3.7-9.2 mg/dL Calcium Level 9.9 8.7-10.4 mg/dL B-Type Natriuretic Peptide 3.84 0-100 pg/mL Urine Color Yellow Yellow Urine Clarity Clear Clear Urine pH 5.5 5.0-9.0 Urine Specific Watkins 1.016 1.001-1.035 Urine Protein Trace H Negative Urine Ketones Negative Negative Urine Blood Trace H Negative /uL Urine Nitrite Negative Negative Urine Bilirubin Negative Negative Urine Urobilinogen 2 H Negative mg/dL Urine Leukocyte Esterase Negative Negative /uL Urine RBC 5 0 - 3 /hpf Urine WBC 1 0 - 3 /hpf Urine Squamous Epithelial Cells Few <5 /hpf Urine Bacteria None seen None Seen /hpf Urine Hyaline Casts Few 0 - 2 /lpf Urine Glucose Normal Normal mg/dL Microbiology Date/Time Source Procedure Growth Status 12/29/23 10:19 Blood Blood Culture - Preliminary NO GROWTH AFTER 24 HOURS OF INCUBATION. Resulted Assessment Bilateral lower extremity cellulitis Chronic venous insufficiency Chronic venous ulcers Hypertension Acute kidney injury Obesity Plan/Recommendation (Dr. Bernal) The patient presents with chronic venous insufficiency likely exacerbated by bilateral lower extremity cellulitis. [facility] Heart Failure Diagnostic Criteria is negative. We recommend antibiotic treatment for cellulitis, nephrology consultation for acute kidney injury, and outpatient vascular follow- up. There is no further cardiac workup indicated at this time. Please call if you need to re-consult. Thank you for allowing us to participate in this patient's care. This medical document was created using an electronic medical record system with voice recognition software and computerized dictation system. Although this document has been carefully reviewed, there might still be some phonetic and typographical errors. Occasional wrong-word or ``sound-alike substitutions may have occurred due to the inherent limitations of voice recognition software. These areas are purely typographical due to imperfections of the software programs and do not reflect any compromise in the patient's medical care. Ple ase read the chart carefully and recognize, using context, where these substitutions have occurred. Plan discussed with: Patient, Other Date of Service: Dec 30, 2023 Billing Provider: MARIA ALEJANDRA BERNAL MD Cardiology Common Codes: [id number] INP/OBS CARE (High) RUBÉN SINGH [employer] Dec 30, 2023 16:33
[2023-12-31 01:00] VITALS: BP 76/51; PULSE 76; RESP 18; TEMP 98.7; O2SAT 95
[2023-12-31 02:30] VITALS: BP 94/57
[2023-12-31 05:00] VITALS: BP 91/60; PULSE 71; RESP 17; TEMP 98.7; O2SAT 94
[2023-12-31 07:12] LABS: Alanine Aminotransferase 14 U/L (7-40); Albumin 3.8 g/dL (3.2-4.8); Alkaline Phosphatase 49 U/L (46-116); Anion Gap 7 (5-15); Aspartate Aminotransferase 19 U/L (13-40); BUN/Creatinine Ratio 20.5 (10.0-20.0); Blood Urea Nitrogen 30 mg/dL (9-23); Calcium 9.6 mg/dL (8.7-10.4); Carbon Dioxide 28 mmol/L (20-31); Chloride 106 mmol/L (98-107); Glucose 102 mg/dL (74-106); Potassium 3.3 mmol/L (3.5-5.1); Sodium 141 mmol/L (136-145); Total Protein 6.9 g/dL (5.7-8.2)
[2023-12-31 08:00] VITALS: RESP 18
--- NOTE | 2023-12-31 08:44 | DVHPN2 ---
Reviewed: Care Plan, H&P, Labs, Medications, Previous Orders, Radiology Changes from previous H/P or p: No Changes Eyes: No Pain, No Vision change, No Conjunctivae inflammation, No Eyelid inflammation, No Other, No Redness ENT: No Ear pain, No Ear discharge, No Nose pain, No Nose discharge, No Nose congestion, No Mouth pain, No Mouth swelling, No Throat pain, No Throat swelling, No Other Cardiovascular: No Chest Pain, No Palpitations, No Orthopnea, No Paroxysmal Noc. Dyspnea, No Edema, No Lt Headedness, No Other Respiratory: No Cough, No Dry, No Shortness of breath, No SOB with excertion, No Wheezing, No Hemoptysis, No Pleuritic Pain, No Sputum, No Other Gastrointestinal: No Nausea, No Vomiting, No Abdominal Pain, No Diarrhea, No Constipation, No Melena, No Hematochezia, No Other Genitourinary: No Dysuria, No Frequency, No Incontinence, No Hematuria, No Retention, No Other Musculoskeletal: No other, No neck pain, No shoulder pain, No arm pain, No back pain, No hand pain; leg pain; No foot pain Skin: Rash; No Lesions, No Jaundice, No Bruising, No Other Objective Vitals Vital Signs Date Time Temp Pulse Resp B/P (MAP) Pulse Ox O2 Delivery O2 Flow Rate FiO2 12/31/23 05:19 91/60 12/31/23 05:00 98.7 71 17 94 98.7 12/30/23 20:00 Room Air* 0 21 Intake/Output Intake and Output 12/31/23 07:00 Intake Total 2490 ml Output Total 3400 ml Balance -910 ml Intake Oral 2440 ml IV Total 50 ml Output Urine Total 3400 ml Medications Current Medications Medications Dose Ordered Sig/Yoanna Route Start Time Stop Time Status Last Admin Dose Admin Ceftriaxone Sodium 50 ml @ 100 mls/hr DAILY@0900 IV 12/30/23 09:00 12/30/23 09:14 100 MLS/HR Clindamycin Phosphate 50 ml @ 50 mls/hr TID IV 12/29/23 14:00 12/31/23 05:25 50 MLS/HR Acetaminophen 650 mg Q6HP PRN PO 12/29/23 12:30 Furosemide 40 mg BIDD IV 12/29/23 18:00 12/30/23 18:19 40 MG Allopurinol 100 mg DAILY PO 12/30/23 10:00 12/30/23 09:15 100 MG Gabapentin 300 mg TID PO 12/29/23 14:00 12/31/23 05:25 300 MG Hydrochlorothiazide 25 mg DAILY PO 12/30/23 10:00 Nicotine 1 patch DAILYPRN TD 12/30/23 10:00 Hold 12/30/23 09:20 1 PATCH Tamsulosin HCl 0.4 mg QPM PO 12/29/23 18:00 12/30/23 18:03 0.4 MG Atorvastatin Calcium 40 mg HS PO 12/29/23 22:00 12/30/23 21:39 40 MG Losartan Potassium 100 mg DAILY PO 12/30/23 10:00 12/30/23 09:15 100 MG Metoprolol Succinate 100 mg DAILY PO 12/30/23 10:00 12/30/23 09:15 100 MG Laboratory Results Laboratory Tests 12/29/23 10:19 12/31/23 06:36 Chemistry Test 12/31/23 06:36 Albumin 3.8 g/dL (3.2-4.8) Calcium Level 9.6 mg/dL (8.7-10.4) Total Protein 6.9 g/dL (5.7-8.2) LFT Test 12/31/23 06:36 Alanine Aminotransferase (ALT) 14 U/L (7-40) Alkaline Phosphatase 49 U/L (46-116) Aspartate Amino Transferase (AST) 19 U/L (13-40) Total Bilirubin 1.0 mg/dL (0.2-1.0) Urinalysis Test 12/29/23 10:02 Urine Color Yellow (Yellow) Urine Clarity Clear (Clear) Urine pH 5.5 (5.0-9.0) Urine Specific Roy 1.016 (1.001-1.035) Urine Protein Trace (Negative) H Urine Ketones Negative (Negative) Urine Blood Trace /uL (Negative) H Urine Nitrite Negative (Negative) Urine Bilirubin Negative (Negative) Urine Urobilinogen 2 mg/dL (Negative) H Urine Leukocyte Esterase Negative /uL (Negative) Urine RBC 5 /hpf (0 - 3) Urine WBC 1 /hpf (0 - 3) Urine Squamous Epithelial Cells Few /hpf (<5) Urine Bacteria None seen /hpf (None Seen) Urine Hyaline Casts Few /lpf (0 - 2) Urine Glucose Normal mg/dL (Normal) Microbiology Microbiology Date/Time Source Procedure Growth Status 12/29/23 10:19 Blood Blood Culture - Preliminary NO GROWTH AFTER 24 HOURS OF INCUBATION. Resulted Labs and/or images reviewed: Labs reviewed by me, Image(s) reviewed by me Assessment/Plan Assessment/Plan Bilateral lower leg cellulitis: Rocephin clindamycin , cardiology consult appreciated, no further cardiac workup Hypertension Hypercholesterolemia CKD Gout Chronic venous insufficiency Chronic congestive heart failure Time spent 55 minutes Patient feels better and wants to go home Plan discussed with: Patient My Orders Orders - CESAR TRIANA MD Procedure Category Date Status Time * Cardiology Consult CONS 12/30/23 Transmitted 13:32 Date of Service: Dec 31, 2023 Billing Provider: CESAR TRIANA MD Common Visit Codes: [id number] INP/OBS CARE(HIGH) CESAR TRIANA MD Dec 31, 2023 08:44
[2023-12-31] MEDS ORDERED: CLIN1CAP70 PO (08:45)
[2023-12-31 08:48] VITALS: BP 103/71; PULSE 68; RESP 20; TEMP 98.3; O2SAT 96
--- NOTE | 2023-12-31 08:48 | DVHDS2 ---
Discharge Summary Date of Admission Dec 29, 2023 at 12:29 Date of Discharge: Dec 31, 2023 Admitting Diagnosis Bilateral lower leg swelling Wounds: None Labs/Diagnostic Data: Laboratory Results Test 12/31/23 06:36 12/29/23 10:19 12/29/23 10:02 Sodium Level 141 mmol/L (136-145) Potassium Level 3.3 mmol/L (3.5-5.1) Chloride Level 106 mmol/L (98-107) Carbon Dioxide Level 28 mmol/L (20-31) Anion Gap 7 (5-15) Blood Urea Nitrogen 30 mg/dL (9-23) Creatinine 1.46 mg/dL (0.700-1.30) Glomerular Filtration Rate Calc 51 mL/min (>90) BUN/Creatinine Ratio 20.5 (10.0-20.0) Serum Glucose 102 mg/dL (74-106) Calcium Level 9.6 mg/dL (8.7-10.4) Total Bilirubin 1.0 mg/dL (0.2-1.0) Aspartate Amino Transferase (AST) 19 U/L (13-40) Alanine Aminotransferase (ALT) 14 U/L (7-40) Alkaline Phosphatase 49 U/L (46-116) Total Protein 6.9 g/dL (5.7-8.2) Albumin 3.8 g/dL (3.2-4.8) White Blood Count 9.6 10^3/uL (4.4-10.8) Red Blood Count 4.42 10^6/uL (4.5-5.90) Hemoglobin 13.1 g/dL (13.5-17.5) Hematocrit 38.9 % (41.0-53.0) Mean Corpuscular Volume 88.1 fL (80.0-100.0) Mean Corpuscular Hemoglobin 29.6 pg (28.0-32.0) Mean Corpuscular Hemoglobin Concent 33.6 g/dL (32.0-36.0) Red Cell Distribution Width 15.0 % (11.8-14.3) Platelet Count 177 10^3/uL (140-450) Mean Platelet Volume 8.4 fL (6.9-10.8) Neutrophils (%) (Auto) 77.9 % (37.0-80.0) Lymphocytes (%) (Auto) 8.5 % (10.0-50.0) Monocytes (%) (Auto) 11.1 % (0.0-12.0) Eosinophils (%) (Auto) 1.5 % (0.0-7.0) Basophils (%) (Auto) 1.0 % (0.0-2.0) Neutrophils # (Auto) 7.5 10 ^3/uL (1.6-8.6) Lymphocytes # (Auto) 0.8 10 ^3/uL (0.4-5.4) Monocytes # (Auto) 1.1 10 ^3/uL (0-1.3) Eosinophils # (Auto) 0.1 10 ^3/uL (0-0.8) Basophils # (Auto) 0.1 10 ^3/uL (0-0.2) Nucleated Red Blood Cells 0.1 % Lactic Acid Level 1.2 mmol/L (0.4-2.0) Uric Acid 9.3 mg/dL (3.7-9.2) B-Type Natriuretic Peptide 3.84 pg/mL (0-100) Urine Color Yellow (Yellow) Urine Clarity Clear (Clear) Urine pH 5.5 (5.0-9.0) Urine Specific [place] 1.016 (1.001-1.035) Urine Protein Trace (Negative) Urine Ketones Negative (Negative) Urine Blood Trace /uL (Negative) Urine Nitrite Negative (Negative) Urine Bilirubin Negative (Negative) Urine Urobilinogen 2 mg/dL (Negative) Urine Leukocyte Esterase Negative /uL (Negative) Urine RBC 5 /hpf (0 - 3) Urine WBC 1 /hpf (0 - 3) Urine Squamous Epithelial Cells Few /hpf (<5) Urine Bacteria None seen /hpf (None Seen) Urine Hyaline Casts Few /lpf (0 - 2) Urine Glucose Normal mg/dL (Normal) Other Laboratory Tests 12/31/23 06:36 12/29/23 10:19 Brief Hx & Hospital Course: 68-year-old male with a history of hypertension hypercholesterolemia CKD gout chronic venous insufficiency congestive heart failure came in for increasing swelling of the bilateral lower extremities. Patient was found to have cellulitis started on Rocephin and clindamycin DVT was ruled out seen by broadcast journalist no further cardiac workup discharged home prescription for clindamycin transmitted to the pharmacy. Patient wants to go home today. Consults/Reason for consult Cardiology Operations or Procedures None Condition at Discharge: Fair Final Diagnosis/Problems List Bilateral lower leg cellulitis: Rocephin clindamycin , cardiology consult appreciated, no further cardiac workup DVT ruled out Hypertension Hypercholesterolemia CKD Gout Chronic venous insufficiency Chronic congestive heart failure Time spent 55 minutes Discharge Disposition: Home Discharge Instruct/Medications Diet: Cardiac 2g Na,low cholest Activity: Light activity Follow Up/Referral: Follow up with your primary Dr Medications: Clindamycin Transmitted to the pharmacy 39 (Time taken for discharge summary 39 minutes) Discharge Statement: "Patient was advised to return to the ER or call 911 if any headaches, dizziness, shortness of breath, chest pain, abdominal pain, bleeding, fevers, or worsening of medical condition. Patient was counseled about treatment plan, medications, possible side effects, patientverbalized understanding. All questions were answered to the best of my ability. This discharge took greater then 30 minutes in planning, reviewing documentation, counseling the patient, and discussing with other team members." ASSESSMENT ASSESSMENT Assessment Bilateral lower leg cellulitis: Rocephin clindamycin , cardiology consult appreciated, no further cardiac workup Hypertension Hypercholesterolemia CKD Gout Chronic venous insufficiency Chronic congestive heart failure Time spent 55 minutes Date of Service: Dec 31, 2023 Billing Provider: CESAR TRIANA MD Common Visit Codes: [id number] DISCH DAY >30min CESAR TRIANA MD Dec 31, 2023 08:48
--- NOTE | 2023-12-31 10:00 | DVHSR ---
APPROVED REPORT EXAM: LIMITED Two-dimensional and M-mode echocardiogram with Doppler and color Doppler. Blood Pressure: 124/71 mmHg INDICATION Worsening CHF RISK FACTORS Height: 6' 1", Weight: 216 DIMENSIONS LVDd4.1 (3.8-5.7cm)LA (2D)4.2 (1.9-4.0cm)Aortic Root3.6 (2.0-3.7cm) LVDs2.9 (2.5-4.0cm)LA (MM) (1.9-4.0cm)Aortic Cusp Exc2.0 (1.5-2.0cm) EF (%) 57.0 (55-70%)Rt. Atrium3.9 (1.9-4.0cm)Asc. Aorta cm IVSd0.9 (0.7-1.1cm)RV (D) (1.8-2.4cm) PWd1.1 (0.7-1.1cm) Mitral Valve MitralMitral Stenosis E wave0.90m/sMV Mean GR.mmHg A wave1.20m/sMV Peak GR.mmHg E/A ratio0.82D MVAcm2 Aortic Valve Aortic ValveAortic Stenosis V11.40m/Tiara Mean GR.6mmHg V21.60m/Tiara Peak GR.11mmHg LVOT Diameter2.5 (1.8-2.4cm)Doppler AVA4.29cm2 Pulmonic Valve V20.80m/s Conclusion Normal left ventricular size and dimension. Normal left ventricular systolic function with estimated ejection fraction of 55%. There is a grade1 diastolic dysfunction. Normal right ventricular size and dimension. Normal right ventricular systolic function. Normal biatrial size and dimension. Normal aortic valve structure and function. Normal mitral valve structure and function Normal tricuspid valve structure and function. The pulmonary valve is grossly normal. . No pericardial effusion.
[2023-12-31 10:48] VITALS: BP 103/71; PULSE 71; TEMP 36.8
== END 2023-12-31 11:31 | disposition home or self-care (01) | DRG 383 ==
LOC: ER 09:24 → OVERFLOW 12:29 → CENTRAL 18:36
PROVIDERS: ADMIT Hospitalist; ATTEND Hospitalist
DX: L03.115 Cellulitis of right lower limb (principal); N17.0 Acute kidney failure with tubular necrosis; I13.0 Hypertensive heart and chronic kidney disease with heart failure and stage 1 through stage 4 chronic kidney disease, or unspecified chronic kidney disease; I50.9 Heart failure, unspecified; M79.89 Other specified soft tissue disorders; I87.8 Other specified disorders of veins; M71.22 Synovial cyst of popliteal space [Baker], left knee; N18.9 Chronic kidney disease, unspecified; L03.116 Cellulitis of left lower limb; I87.2 Venous insufficiency (chronic) (peripheral); E66.9 Obesity, unspecified; J44.9 Chronic obstructive pulmonary disease, unspecified; E78.00 Pure hypercholesterolemia, unspecified; F17.210 Nicotine dependence, cigarettes, uncomplicated; Z96.651 Presence of right artificial knee joint; Z86.73 Personal history of transient ischemic attack (TIA), and cerebral infarction without residual deficits; Z82.49 Family history of ischemic heart disease and other diseases of the circulatory system; Z79.899 Other long term (current) drug therapy; Z68.28 Body mass index [BMI] 28.0-28.9, adult
CPT/HCPCS: 36415; 80048; 80053; 81001; 83605; 83880; 84550; 85025; 87040; 93306; 93970; G0378; J3490

== ENCOUNTER 2024-10-19 13:36 | Emergency (ER) | payer OTHER ==
[~2024-10-19] VITALS: Ht 188 cm; Wt 128.0 kg
[~2024-10-19 13:36] MED LIST changes: +AMLO1TAB22 PO; +CLIN1CAP70 PO; +OXYC-963
[2024-10-19 13:37] VITALS: BP 129/94; PULSE 80; RESP 16; TEMP 98.2; O2SAT 92
--- NOTE | 2024-10-19 14:12 | ED.PDOC ---
History of Present Illness HPI Comments 68 y/o M, with PMHx of HTN, HLD, CKF, CVA, and arthritis presents to the ED for CC of wound check. Patient reports, he was at [employer] when he was turning into the register with his cart to pay, when he suffered an abrasion to his left knee. Patient endorses, filling a complaint at said grocery store. Patient has 2cm superficial abrasion to his left knee. Patient denies any further injury, no other symptoms or modifying factors are present at this time. Chief Complaint: Wound Check Time Seen by MD: 13:50 Reviewed Notes: Nurses Notes, Medications, Allergies Allergies: Coded Allergies: NO KNOWN ALLERGIES (Unverified , 07/19/13) Home Meds Active Scripts Clindamycin Hcl (Clindamycin Hcl) 300 Mg Cap, 1 CAP PO TID, #30 CAP Prov:CESAR TRIANA MD 12/31/23 Allopurinol (Allopurinol) 100 Mg Tab, 100 MG PO DAILY for 30 Days, #30 TAB 3 Refills Prov:MAKENZIE BENNETT MD 07/23/21 Reported Medications Oxycodone W/ Acetaminophen (Oxycodone/Acetaminophen 10-300 mg) 1 Tab Tab 12/29/23 Amlodipine Besylate (Amlodipine Besylate) 5 Mg Tab, 1 TAB PO DAILY 12/29/23 Furosemide (Furosemide) 40 Mg Tab, 1 TAB PO BID 05/19/21 Atorvastatin Calcium (ATORVASTATIN CALCIUM) 40 Mg Tab, 1 TAB PO DAILYPRN 05/19/21 Hctz (Hydrochlorothiazide) 25 Mg Tab, 1 TAB PO DAILYPRN 05/19/21 Metoprolol Succinate (Metoprolol Succinate Er) 100 Mg Tab, 1 TAB PO DAILYPRN 05/19/21 Gabapentin (Gabapentin) 300 Mg Cap, 1 CAP PO TID 05/19/21 Tamsulosin Hcl (Tamsulosin Hcl) 0.4 Mg Cap, 1 CAP PO DAILY 05/19/21 Hydrocodone-Acetaminophen (Hydrocodone Bitartrate/AC 10-300 mg) 1 Tab Tab 05/19/21 Nicotine (Nicotine Transdermal Syst) 14 Mg/24 Hr Dis, 1 PATCH TOP DAILYPRN 05/19/21 Losartan Potassium (Losartan Potassium) 100 Mg Tab, 1 TAB PO DAILY 05/19/21 Information Source: Patient Mode of Arrival: Ambulatory Severity: Moderate Timing: Minutes Duration: Since onset Prehospital treatment: None Past Medical History PAST MEDICAL HISTORY: Arthritis, CKF, CVA, Gout, High Lipids, HTN Surgical History: Denies all surgeries Family History Family History: Reviewed,noncontributory to illness, Family hx of DM Social History Smoker: Cigarettes Alcohol: Occasionally Drugs: Denies Drug Use Lives In: Home Constitutional: denies: chills, diaphoresis, fatigue, fever, malaise, sweats, weakness, others EENTM: denies: blurred vision, double vision, ear bleeding, ear discharge, ear drainage, ear pain, ear ringing, eye pain, eye redness, hearing loss, mouth pain, mouth swelling, nasal discharge, nose bleeding, nose congestion, nose pain, photophobia, tearing, throat pain, throat swelling, voice changes, others Respiratory: denies: cough, hemoptysis, orthopnea, SOB at rest, shortness of breath, SOB with excertion, stridor, wheezing, others Cardiovascular: denies: chest pain, dizzy spells, diaphoresis, Dyspnea on exertion, edema, irregular heart beat, left arm pain, lightheadedness, palpitations, PND, syncope, others Gastrointestinal: denies: abdomen distended, abdominal pain, blood streaked bowels, constipated, diarrhea, dysphagia, difficulty swallowing, hematemesis, melena, nausea, poor appetite, poor fluid intake, rectal bleeding, rectal pain, vomiting, others Genitourinary: denies: burning, dysuria, flank pain, frequency, hematuria, incontinence, penile discharge, penile sore, pain, testicle pain, testicle swelling, urgency, others Neurological: denies: dizziness, fainting, headache, left sided numbness, left sided weakness, numbness, paresthesia, pre-existing deficit, right sided numbness, right sided weakness, seizure, speech problems, tingling, tremors, weakness, others Musculoskeletal: denies: back pain, gout, joint pain, joint swelling, muscle pain, muscle stiffness, neck pain, others Integumetry: denies: bruises, change in color, change in hair/nails, dryness, laceration, lesions, lumps, rash, wounds, others Allergic/Immunocompromised: denies: Difficulty Healing, Frequent Infections, Hives, Itching, others Hematologic/Lymphatic: denies: anemia, blood clots, easy bleeding, easy bruising, swollen glands, others Endocrine: denies: excessive hunger, excessive sweating, excessive thirst, excessive urination, flushing, intolerance to cold, intolerance to heat, unexplained weight gain, unexplained weight loss, others Psychiatric: denies: anxiety, bipolar disorder, depression, hopeless, panic disorder, schizophrenia, sleepless, suicidal, others All Other Systems: Reviewed and Negative Physical Exam General Appearance: Moderate Distress HEENT: Normal ENT Inspection, Pharynx Normal, TMs Normal Neck: Full Range of Motion, Non-Tender, Normal, Normal Inspection Respiratory: Chest Non-Tender, Lungs Clear, No Accessory Muscle Use, No Respiratory Distress, Normal Breath Sounds Cardiovascular: No Edema, No JVD, No Murmur, No Gallop, Normal Peripheral Pulses, Regular Rate/Rhythm Breast Exam: Deferred Gastrointestinal: No Organomegaly, Non Tender, No Pulsatile Mass, Normal Bowel Sounds, Soft Genitalia: Deferred Pelvic: Deferred Rectal: Deferred Extremities: No calf tenderness, No pedal edema, Other (Deformed right ankle from previous fracture) Musculoskeletal : Apperance: Normal Neurologic: Alert, 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 Was a procedure done?: No Differential Dx Considerations may include: ABRASION X-Ray, Labs, Meds, VS Vital Signs Date Time Temp Pulse Resp B/P (MAP) Pulse Ox O2 Delivery O2 Flow Rate FiO2 10/19/24 13:37 98.2 80 16 129/94 92 98.2 Patient alert. Came in because of wound in the left knee. On examination he does have deformity of the right ankle. Vitals stable. He did state that he is up-to-date with tetanus. Possible cardiomyopathy. He will need to be worked up for his heart. Explained to the patient. Continue monitoring. Time of 1ST Reevaluation: 15:57 Reevaluation 1ST: Unchanged Patient Education/Counseling: Diagnosis, Treatment Family Education/Counseling: No Family Present SEPSIS Sepsis Screen Date sepsis recognized/suspect: Oct 19, 2024 Time Sepsis recognized/suspect: 1339 Recent Procedure: No On Antibiotic Therapy: No Respiratory Rate >20: No Heart Rate >90: No Temp<36 C (96.8 F) or >38.3 C: No SBP <90 or MAP <65 mmHG: No New Acute Mental Status Change: No Is the patient on CPAP, BIPAP,: No Vital Signs Date Time Temp Pulse Resp B/P (MAP) Pulse Ox O2 Delivery O2 Flow Rate FiO2 10/19/24 13:37 98.2 80 16 129/94 92 98.2 Departure 1 Departure Time of Disposition: 15:58 Impression: Primary Impression: Cardiomyopathy Qualified Codes: I42.9 - Cardiomyopathy, unspecified Additional Impressions: Abrasion of knee, left Qualified Codes: S80.212A - Abrasion, left knee, initial encounter Deformity of ankle joint Qualified Codes: M21.961 - Unspecified acquired deformity of right lower leg Disposition: ADMITTED INPATIENT Admit to: Med Surg Condition: Guarded Critical Care Note Critical Care Time?: No Stability Stability form required: No Heart Score Heart Score: Heart Score Response (Comments) Value History N/A 0 EKG N/A 0 Age N/A 0 Risk Factors N/A 0 Troponin N/A 0 Total 0 I personally scribed for FEROZ HAWKINS MD ([email or web address]) on 10/19/24 at 14:12. Electronically submitted by Gabby Kathleen ([email or web address]). FEROZ HAWKINS MD Oct 19, 2024 14:12
== END 2024-10-19 16:00 | disposition left against medical advice (07) ==
LOC: ER 13:36
DX: S80.212D Abrasion, left knee, subsequent encounter (principal); I12.9 Hypertensive chronic kidney disease with stage 1 through stage 4 chronic kidney disease, or unspecified chronic kidney disease; N18.9 Chronic kidney disease, unspecified; E78.5 Hyperlipidemia, unspecified; F17.210 Nicotine dependence, cigarettes, uncomplicated; M19.90 Unspecified osteoarthritis, unspecified site; Z48.00 Encounter for change or removal of nonsurgical wound dressing; Z79.899 Other long term (current) drug therapy; Z86.73 Personal history of transient ischemic attack (TIA), and cerebral infarction without residual deficits; X58.XXXD Exposure to other specified factors, subsequent encounter

== ENCOUNTER 2024-11-03 09:04 | Inpatient (IN) | payer MEDICARE, OTHER ==
[~2024-11-03] VITALS: Ht 188 cm; Wt 131.3 kg
--- NOTE | 2024-11-03 10:05 | ED.PDOC ---
Musculoskeletal HPI Comments 69 year old male presents to the ED with a chief complaint of bilateral leg swelling onset 1 week. PMHx Gout, HLD, HTN, CKF, CVA, arthritis. Patient has been experiencing BLE swelling for the past week, noticed RT leg is worse. He was seen in this ED on 10/19/24, was prescribed Lasix. Denies fall, injury, trauma, numbness/tingling, fever, chills, chest pain, shortness of breath. No other symptoms or modifying factors present at this time. Chief Complaint: Lower Extremity Time Seen by MD: 09:50 Reviewed Notes: Medications, Allergies Allergies: Coded Allergies: NO KNOWN ALLERGIES (Unverified , 07/19/13) Home Meds Active Scripts Clindamycin Hcl (Clindamycin Hcl) 300 Mg Cap, 1 CAP PO TID, #30 CAP Prov:CESAR TRIANA MD 12/31/23 Allopurinol (Allopurinol) 100 Mg Tab, 100 MG PO DAILY for 30 Days, #30 TAB 3 Refills Prov:MAKENZIE BENNETT MD 07/23/21 Reported Medications Oxycodone W/ Acetaminophen (Oxycodone/Acetaminophen 10-300 mg) 1 Tab Tab 12/29/23 Amlodipine Besylate (Amlodipine Besylate) 5 Mg Tab, 1 TAB PO DAILY 12/29/23 Furosemide (Furosemide) 40 Mg Tab, 1 TAB PO BID 05/19/21 Atorvastatin Calcium (ATORVASTATIN CALCIUM) 40 Mg Tab, 1 TAB PO DAILYPRN 05/19/21 Hctz (Hydrochlorothiazide) 25 Mg Tab, 1 TAB PO DAILYPRN 05/19/21 Metoprolol Succinate (Metoprolol Succinate Er) 100 Mg Tab, 1 TAB PO DAILYPRN 05/19/21 Gabapentin (Gabapentin) 300 Mg Cap, 1 CAP PO TID 05/19/21 Tamsulosin Hcl (Tamsulosin Hcl) 0.4 Mg Cap, 1 CAP PO DAILY 05/19/21 Hydrocodone-Acetaminophen (Hydrocodone Bitartrate/AC 10-300 mg) 1 Tab Tab 05/19/21 Nicotine (Nicotine Transdermal Syst) 14 Mg/24 Hr Dis, 1 PATCH TOP DAILYPRN 05/19/21 Losartan Potassium (Losartan Potassium) 100 Mg Tab, 1 TAB PO DAILY 05/19/21 Information Source: Patient Mode of Arrival: Ambulatory Location: Bilateral Extremity Location: Leg Timing: Weeks Prehospital treatment: None Severity: Moderate Able to Move Extremity: Yes Bear Weight: Limited Pain: Moderate Mechanism: Spontaneous Circumstances: Spontaneous Onset of Symptoms: Spontaneous Symptoms: Swelling DVT Risk Factors: CHF Associated signs and symptoms: Swelling Past Medical History PAST MEDICAL HISTORY: Arthritis, CKF, CVA, Gout, High Lipids, HTN Surgical History: Denies all surgeries Family History Family History: Reviewed,noncontributory to illness, Family hx of DM Social History Smoker: Cigarettes Alcohol: Occasionally Drugs: Denies Drug Use Lives In: Home Constitutional: denies: chills, diaphoresis, fatigue, fever, malaise, sweats, weakness, others EENTM: denies: blurred vision, double vision, ear bleeding, ear discharge, ear drainage, ear pain, ear ringing, eye pain, eye redness, hearing loss, mouth pain, mouth swelling, nasal discharge, nose bleeding, nose congestion, nose pain, photophobia, tearing, throat pain, throat swelling, voice changes, others Respiratory: denies: cough, hemoptysis, orthopnea, SOB at rest, shortness of breath, SOB with excertion, stridor, wheezing, others Cardiovascular: denies: chest pain, dizzy spells, diaphoresis, Dyspnea on exertion, edema, irregular heart beat, left arm pain, lightheadedness, palpitations, PND, syncope, others Gastrointestinal: denies: abdomen distended, abdominal pain, blood streaked bowels, constipated, diarrhea, dysphagia, difficulty swallowing, hematemesis, melena, nausea, poor appetite, poor fluid intake, rectal bleeding, rectal pain, vomiting, others Genitourinary: denies: burning, dysuria, flank pain, frequency, hematuria, incontinence, penile discharge, penile sore, pain, testicle pain, testicle swelling, urgency, others Neurological: denies: dizziness, fainting, headache, left sided numbness, left sided weakness, numbness, paresthesia, pre-existing deficit, right sided numbness, right sided weakness, seizure, speech problems, tingling, tremors, wea kness, others Musculoskeletal: reports: others (BLE swelling); denies: back pain, gout, joint pain, joint swelling, muscle pain, muscle stiffness, neck pain Integumetry: denies: bruises, change in color, change in hair/nails, dryness, laceration, lesions, lumps, rash, wounds, others Allergic/Immunocompromised: denies: Difficulty Healing, Frequent Infections, Hives, Itching, others Hematologic/Lymphatic: denies: anemia, blood clots, easy bleeding, easy bruising, swollen glands, others Endocrine: denies: excessive hunger, excessive sweating, excessive thirst, excessive urination, flushing, intolerance to cold, intolerance to heat, unexplained weight gain, unexplained weight loss, others Psychiatric: denies: anxiety, bipolar disorder, depression, hopeless, panic disorder, schizophrenia, sleepless, suicidal, others All Other Systems: Reviewed and Negative Physical Exam General Appearance: Moderate Distress, Normal HEENT: Normal ENT Inspection, Pharynx Normal, TMs Normal Neck: Full Range of Motion, Non-Tender, Normal, Normal Inspection Respiratory: Chest Non-Tender, Lungs Clear, No Accessory Muscle Use, No Respiratory Distress, Normal Breath Sounds Cardiovascular: No Edema, No JVD, No Murmur, No Gallop, Normal Peripheral Pul ses, Regular Rate/Rhythm Breast Exam: Deferred Gastrointestinal: No Organomegaly, Non Tender, No Pulsatile Mass, Normal Bowel Sounds, Soft Genitalia: Deferred Pelvic: Deferred Rectal: Deferred Extremities: No calf tenderness, Normal capillary refill, Normal range of motion, Non-tender, Pedal edema, Swelling (Right lower extremity) Musculoskeletal : Apperance: Normal Neurologic: Alert, [place] ma[place] II-XII nml as Tested, No Motor Deficits, Normal Affect, Normal Mood, No Sensory Deficits Cerebellar Function: Normal Reflexes: Normal Skin: Dry, Normal Color, Warm Peripheral Pulses: 3+ Radial (R), 3+ Radial (L) Lymphatic: No Adenopathy Was a procedure done? Was a procedure done?: No Differential Diagnosis EXT Differential Diagnosis: Cellulitis, Sprain, Strain X-Ray, Labs, Meds, VS Vital Signs Date Time Temp Pulse Resp B/P (MAP) Pulse Ox O2 Delivery O2 Flow Rate FiO2 11/03/24 09:10 98.0 91 18 152/77 94 98.0 Lab Test 11/03/24 10:17 Range/Units White Blood Count 6.3 4.4-10.8 10^3/uL Red Blood Count 4.28 L 4.5-5.90 10^6/uL Hemoglobin 12.2 L 13.5-17.5 g/dL Hematocrit 36.5 L 41.0-53.0 % Mean Corpuscular Volume 85.3 80.0-100.0 fL Mean Corpuscular Hemoglobin 28.6 28.0-32.0 pg Mean Corpuscular Hemoglobin Concent 33.5 32.0-36.0 g/dL Red Cell Distribution Width 16.4 H 11.8-14.3 % Platelet Count 225 140-450 10^3/uL Mean Platelet Volume 7.9 6.9-10.8 fL Neutrophils (%) (Auto) 74.7 37.0-80.0 % Lymphocytes (%) (Auto) 11.8 10.0-50.0 % Monocytes (%) (Auto) 10.2 0.0-12.0 % Eosinophils (%) (Auto) 2.8 0.0-7.0 % Basophils (%) (Auto) 0.5 0.0-2.0 % Neutrophils # (Auto) 4.7 1.6-8.6 10 ^3/uL Lymphocytes # (Auto) 0.7 0.4-5.4 10 ^3/uL Monocytes # (Auto) 0.6 0-1.3 10 ^3/uL Eosinophils # (Auto) 0.2 0-0.8 10 ^3/uL Basophils # (Auto) 0 0-0.2 10 ^3/uL Nucleated Red Blood Cells 0.1 % Sodium Level 143 136-145 mmol/L Potassium Level 3.5 3.5-5.1 mmol/L Chloride Level 105 98-107 mmol/L Carbon Dioxide Level 24 20-31 mmol/L Anion Gap 14 5-15 Blood Urea Nitrogen 16 9-23 mg/dL Creatinine 1.23 0.700-1.30 mg/dL Glomerular Filtration Rate Calc 63 >90 mL/min BUN/Creatinine Ratio 13.0 10.0-20.0 Serum Glucose 102 74-106 mg/dL Calcium Level 9.1 8.7-10.4 mg/dL Troponin I High Sensitivity < 3 L </=54 ng/L [address] [address] Ph: [phone] DIAGNOSTIC IMAGING Diagnostic Imaging Report : [id number] Signed PATIENT: URSULA MARIEE ACCT: [id number] UNIT: [id number] : 1955 LOC: ER ROOM / BED: / AGE / SEX: 69 / M ADM STATUS: REG ER SERVICE 1002 ORDERING PHYSICIAN: FEROZ HAWKINS MD PROCEDURE(s): RLDVT - RT Lower DVT REASON: dvt ORDER NUMBER(s): [id number], ACCESSION NUMBER(s): [id number] US RT Lower DVT HISTORY: dvt COMPARISON: US BILAT LOWER DVT on DOS: 12/29/23, RWRI on DOS: 07/19/21, BLDVT on DOS: 07/19/21 TECHNIQUE: Duplex doppler evaluation of the deep venous system of the lower extremity from the common femoral veins, superficial femoral vein, great sap henous vein, deep femoral vein, popliteal vein, and calf veins, including color doppler and spectral/pulsed waveform analysis, was performed. FINDINGS: Right: - Common femoral vein: Compressible - Deep femoral vein: Compressible - Femoral vein: Compressible - Popliteal vein: Compressible - Posterior tibial vein: Waveforms present - Other: 4.5 x 3.1 cm calcification seen in the popliteal fossa. IMPRESSION: No right lower extremity deep venous thrombosis. ATED BY: ADDISON SMITH MD DICTATED DATE/TIME: 11/03/241045 SIGNED BY: ADDISON SMITH MD SIGNED DATE/TIME: 11/03/241045 CC: Patient alert. Came in because of right lower extremity swelling. DVT study within normal limits. Vitals stable. Answering questions. Cardiac marker within normal limits. Blood pressure slightly elevated pain Was given clonidine. Explained to the patient. Continue monitoring. WBC within normal limits. Time of 1ST Reevaluation: 10:20 Reevaluation 1ST: Unchanged Patient Education/Counseling: Diagnosis, Treatment, Prognosis Family Education/Counseling: No Family Present Departure 1 Departure Time of Disposition: 14:22 Impression: Primary Impression: Cellulitis of right lower extremity Additional Impression: HTN (hypertension) Qualified Codes: I10 - Essential (primary) hypertension Disposition: ADMITTED INPATIENT Admit to: Med Surg Condition: Guarded Critical Care Note Critical Care Time?: No Stability Stability form required: No I personally scribed for FEROZ HAWKINS MD ([email or web address]) on 11/03/24 at 10:05. Electronically submitted by Carrie Vance ([email or web address]). I personally scribed for FEROZ HAWKINS MD ([email or web address]) on 11/03/24 at 12:00. Electronically submitted by Carrie Vance ([email or web address]). FEROZ HAWKINS MD Nov 03, 2024 10:05
--- NOTE | 2024-11-03 10:49 | DVH ---
US RT Lower DVT HISTORY: dvt COMPARISON: US BILAT LOWER DVT on DOS: 12/29/23, RWRI on DOS: 07/19/21, BLDVT on DOS: 07/19/21 TECHNIQUE: Duplex doppler evaluation of the deep venous system of the lower extremity from the common femoral veins, superficial femoral vein, great saphenous vein, deep femoral vein, popliteal vein, an d calf veins, including color doppler and spectral/pulsed waveform analysis, was performed. FINDINGS: Right: - Common femoral vein: Compressible - Deep femoral vein: Compressible - Femoral vein: Compressible - Popliteal vein: Compressible - Posterior tibial vein: Waveforms present - Other: 4.5 x 3.1 cm calcification seen in the popliteal fossa. IMPRESSION: No right lower extremity deep venous thrombosis.
[2024-11-03 10:53] LABS: Hematocrit 36.5 % (41.0-53.0); Hemoglobin 12.2 g/dL (13.5-17.5); Mean Corpuscular Hemoglobin 28.6 pg (28.0-32.0); Mean Corpuscular Volume 85.3 fL (80.0-100.0); Nucleated Red Blood Cells % 0.1 %
[2024-11-03 11:08] LABS: Chloride 105 mmol/L (98-107); Sodium 143 mmol/L (136-145)
[2024-11-03 11:09] LABS: Anion Gap 14 (5-15); Carbon Dioxide 24 mmol/L (20-31)
[2024-11-03 11:10] LABS: Calcium 9.1 mg/dL (8.7-10.4)
[2024-11-03 11:12] LABS: Potassium 3.5 mmol/L (3.5-5.1)
[2024-11-03 11:14] LABS: Glucose 102 mg/dL (74-106)
[2024-11-03 11:15] LABS: BUN/Creatinine Ratio 13.0 (10.0-20.0); Blood Urea Nitrogen 16 mg/dL (9-23)
--- NOTE | 2024-11-03 17:12 | DVHHPRES ---
History of Present Illness Resident Creating Document: JAYLIN HUGHES RESIDENT History of Present Illness Jesus Ferraro is a 69 -years-old male, with past medical history of HTN, Osteoarthritis, Hyperlipidemia, gout and pre-diabetic. The patient came to ED with chief complaint of 1 week of bilateral leg edema associated with leg heaviness sensation. The patient report worsening of the leg edema; this prompt his visit to the ED. The patient reported being admitted at [facility] 2 moths ago for right leg cellulitis and he discharged from the wound clinic one week ago, but he started noticing 2 small ulcers on the right leg that are no painful. The patient denies SOB, orthopnea, chest pain, fever, chills, abdominal pain, trauma on the legs or other symptoms. On the ED US Doppler showed: No right lower extremity deep venous thrombosis. The patient will be admitted for further assessment and management. Cardiovascular: HTN, hyperipidemia, Other ([place] stasis) Musculoskeletal: Osteoarthritis Rheumatologic: Gout Renal/: Benign prostatic enlarg. Endocrine: Other (Pre diabetes) Past Surgical History: Total knee replacement (Left total knee replacement on 2011) Family History: Cancer (Grandmother) Smoke: Quit (Patient smoked for 20 years one package per day, he quit 2 months ago. ) ALCOHOL: heavy (The patient reporsts heavy alcohol consumption about 1/2 bottle a day of gin or tequila. ) Drugs: Marijuana, Other (He used cocain on teens years, he quit 20 years ago. ) Lives: with Family Review of Systems Constitutional: No: Fever, Chills, Sweats, Weakness, Malaise, Other Eyes: No: Pain, Vision change, Conjunctivae inflammation, Eyelid inflammation, Other, Redness ENT: No: Ear pain, Ear discharge, Nose pain, Nose discharge, Nose congestion, Mouth pain, Mouth swelling, Throat pain, Throat swelling, Other Respiratory: No: Cough, Dry, Shortness of breath, SOB with excertion, Wheezing, Hemoptysis, Pleuritic Pain, Sputum, Wheezing, Other Cardiovascular: Edema; No: Chest Pain, Palpitations, Orthopnea, Paroxysmal Noc. Dyspnea, Lt Headedness, Other Gastrointestinal: No: Nausea, Vomiting, Abdominal Pain, Diarrhea, Constipation, Melena, Hematochezia, Other Genitourinary: No Dysuria, No Frequency, No Incontinence, No Hematuria, No Retention, No Other Musculoskeletal: No: other, neck pain, shoulder pain, arm pain, back pain, hand pain, leg pain, foot pain Skin: No: Rash, Lesions, Jaundice, Bruising, Other Neurological: No: Weakness, Numbness, Incoordination, Change in speech, Confusion, Seizures, Other Allergies: Coded Allergies: NO KNOWN ALLERGIES (Unverified , 07/19/13) Medications Current Medications Medications Dose Ordered Sig/Yoanna Route Start Time Stop Time Status Last Admin Dose Admin Acetaminophen 650 mg Q6HP PRN PO 11/03/24 15:45 UNV Furosemide 40 mg BID IV 11/03/24 15:45 UNV Pantoprazole Sodium 40 mg DAILY PO 11/04/24 10:00 UNV Exam Vital Signs Vital Signs Date Time Temp Pulse Resp B/P (MAP) Pulse Ox O2 Delivery O2 Flow Rate FiO2 11/03/24 09:10 98.0 91 18 152/77 94 98.0 General Appearance: Alert, Oriented X3, Cooperative, No acute distress HEENT: Atraumatic, PERRLA, Mucous membr. moist/pink Respiratory: Clear to auscultation, Normal air movement Cardiovascular: Regular rate, Normal S1, Normal S2, No murmurs Abdominal: Normal bowel sounds, Soft, No tenderness, No masses Extremities: No clubbing, No cyanosis, Other (Bilateral leg pitting edema, up to the knee. ) Skin: No rashes (2 small ulcers, about 2 cm, clean base, draining yellowish fluid.) Neuro: Normal speech, Strength at 5/5 X4 ext, Normal tone, Sensation intact, Other (Walks with can due to billateral lower extremity swelling.) Psych/Mental Status: Mental status NL, Mood NL Labs/Xrays Labs Test 11/03/24 10:17 Range/Units White Blood Count 6.3 4.4-10.8 10^3/uL Red Blood Count 4.28 L 4.5-5.90 10^6/uL Hemoglobin 12.2 L 13.5-17.5 g/dL Hematocrit 36.5 L 41.0-53.0 % Mean Corpuscular Volume 85.3 80.0-100.0 fL Mean Corpuscular Hemoglobin 28.6 28.0-32.0 pg Mean Corpuscular Hemoglobin Concent 33.5 32.0-36.0 g/dL Red Cell Distribution Width 16.4 H 11.8-14.3 % Platelet Count 225 140-450 10^3/uL Mean Platelet Volume 7.9 6.9-10.8 fL Neutrophils (%) (Auto) 74.7 37.0-80.0 % Lymphocytes (%) (Auto) 11.8 10.0-50.0 % Monocytes (%) (Auto) 10.2 0.0-12.0 % Eosinophils (%) (Auto) 2.8 0.0-7.0 % Basophils (%) (Auto) 0.5 0.0-2.0 % Neutrophils # (Auto) 4.7 1.6-8.6 10 ^3/uL Lymphocytes # (Auto) 0.7 0.4-5.4 10 ^3/uL Monocytes # (Auto) 0.6 0-1.3 10 ^3/uL Eosinophils # (Auto) 0.2 0-0.8 10 ^3/uL Basophils # (Auto) 0 0-0.2 10 ^3/uL Nucleated Red Blood Cells 0.1 % Sodium Level 143 136-145 mmol/L Potassium Level 3.5 3.5-5.1 mmol/L Chloride Level 105 98-107 mmol/L Carbon Dioxide Level 24 20-31 mmol/L Anion Gap 14 5-15 Blood Urea Nitrogen 16 9-23 mg/dL Creatinine 1.23 0.700-1.30 mg/dL Glomerular Filtration Rate Calc 63 >90 mL/min BUN/Creatinine Ratio 13.0 10.0-20.0 Serum Glucose 102 74-106 mg/dL Calcium Level 9.1 8.7-10.4 mg/dL Troponin I High Sensitivity < 3 L </=54 ng/L SEPSIS Sepsis Screen Date sepsis recognized/suspect: Nov 03, 2024 Time Sepsis recognized/suspect: 09 Recent Procedure: No On Antibiotic Therapy: No Respiratory Rate >20: No Heart Rate >90: No Temp<36 C (96.8 F) or >38.3 C: No SBP <90 or MAP <65 mmHG: No New Acute Mental Status Change: No Is the patient on CPAP, BIPAP,: No Physician Orders Urinalysis (11/03/24 10:02) Rt Lower Dvt (11/03/24 10:02) Admit (11/03/24 15:36) Code Status (11/03/24 15:36) Vital Signs .PER UNIT PROTOCOL (11/03/24 15:36) Review Orders With Adm. (11/03/24 15:36) Bedrest With Bathroom Privileg (11/03/24 15:36) Acetaminophen Tablet (Tylenol Tablet) (11/03/24 15:45) Notify Md Of Changes From Base (11/03/24 15:36) Advance Directive (11/03/24 15:36) Urinalysis (11/03/24 15:36) Complete Blood Count (11/04/24 04:00) Allergies (11/03/24 15:36) Drug Screen (11/03/24 15:36) Furosemide Injection (Lasix Injection) (11/03/24 15:45) Pantoprazole Tablet (Protonix Tablet) (11/04/24 10:00) Comprehensive Metabolic Panel (11/04/24 04:00) B-Type Natriuretic Peptide (11/03/24 15:36) Urine Protein/Creatinine Ratio (11/03/24 ) Electrocardigram (11/03/24 15:36) Echo 2d Mode Cardiac Dop (11/03/24 15:36) Abdomen Limited (11/03/24 15:36) Urine Sodium (11/03/24 15:36) Bilirubin, Total (11/03/24 15:36) Bilirubin, Direct (11/03/24 15:36) Comprehensive Metabolic Panel (11/03/24 15:36) Strict I&O (11/03/24 ) * Wound Consult (11/03/24 ) Cardiac Diet-2gna,Lofat,Lochol (11/03/24 Dinner) Chest Xray 1 View (11/03/24 15:36) Vital Signs Date Time Temp Pulse Resp B/P (MAP) Pulse Ox O2 Delivery O2 Flow Rate FiO2 11/03/24 09:10 98.0 91 18 152/77 94 98.0 Laboratory Tests Test 11/03/24 10:17 White Blood Count 6.3 10^3/uL (4.4-10.8) Assessment/Plan Assessment/Plan #Lower extremity edema likely due to rani stasis DVT ruled out: Doppler US negative for rani thrombosis. Lasix 40mg IV BID Strict I&Os Consider vascular evaluation. #Rule out CHF BNP EKG ECHO Strict I&Os #Rule out nephrotic syndrome UA protein:creatinine Urine sodium #Uncontrolled high blood pressure Renal US Losartan 100mg po qd Metoprolol 100mg po qd Hold amlodipine. Cardiac diet #Lower leg wound, likely due to rani stasis Cefazolin 1g IV Q6 Would culture Blood culture Wound consult #Gout Uric acid levels #Hyperlipidemia Atorvastatin 40mg po qd #Pre-diabetes HbA1C Low carb diet #Osteoarthritis Menard 10/325mg po prn for pain #BPH Tamsulosin 0.4mg po qd #Sciatica Gabapentin 100mg TID #[place] user Counseling about cessation #Alcohol abuse disorder LFT's Bilirubin Liver US Counseling about cessation #Obesity BMI 38.0 Counseling about life style changes. Cardiac diet DVT prophylaxis- ambulating. PUD prophylaxis Protonics Goals of care discussed with the patient > 35 min. Discussed plan of care with Dr. Harrington Code status: Full code PCP: Dr. Buchanan Plan discussed with: Patient, the patient agrees with the admission plan. Plan discussed with: Patient My Orders Orders - JAYLIN HUGHES RESIDENT Procedure Category Date Status Time Admit ADMIT 11/03/24 Transmitted 15:36 Code Status CODE 11/03/24 Transmitted 15:36 Vital Signs [facility] 11/03/24 In Process 15:36 Review Orders With [facility] 11/03/24 In Process Adm. 15:36 Bedrest With Bathroom [facility] 11/03/24 In Process Privileg 15:36 Acetaminophen Tablet [facility] 11/03/24 Logged (Tylenol Tablet) 15:45 Notify Of Changes [facility] 11/03/24 In Process From Base 15:36 Advance Directive [facility] 11/03/24 In Process 15:36 Urinalysis LAB 11/03/24 Logged 15:36 Complete Blood Count LAB 11/04/24 Verified 04:00 Allergies [facility] 11/03/24 In Process 15:36 Drug Screen LAB 11/03/24 Logged 15:36 Furosemide Injection PHA 11/03/24 Logged (Lasix Injection) 15:45 Pantoprazole Tablet PHA 11/04/24 Logged (Protonix Tablet) 10:00 Comprehensive LAB 11/04/24 Verified Metabolic Panel 04:00 B-Type Natriuretic LAB 11/03/24 Logged Peptide 15:36 Urine LAB 11/03/24 Logged Protein/Creatinine Electrocardigram EKG 11/03/24 Logged 15:36 Echo 2d Mode Cardiac US 11/03/24 Logged DOP 15:36 Abdomen Limited US 11/03/24 Logged 15:36 Urine Sodium LAB 11/03/24 Logged 15:36 Bilirubin, Total LAB 11/03/24 Logged 15:36 Bilirubin, Direct LAB 11/03/24 Logged 15:36 Comprehensive LAB 11/03/24 Logged Metabolic Panel 15:36 Strict I&O ED NURSING 11/03/24 Transmitted * Wound Consult CONS 11/03/24 Transmitted Cardiac DIET 11/03/24 Transmitted Diet-2gna,Lofat,Lochol Dinner Chest Xray 1 View XY 11/03/24 Logged 15:36 Date of Service: Nov 03, 2024 Billing Provider: DANIELLA HARRINGTON MD Common Visit Codes: [id number] INP/OBS CARE (HIGH) Secondary Visit Codes: [id number] CARE PLAN 30 MINUTES JAYLIN HUGHES RESIDENT Nov 03, 2024 17:12
--- NOTE | 2024-11-03 17:24 | DVH ---
CLINICAL HISTORY: Renal artery disease, R/O liver steatosis TECHNIQUE: Transabdominal sonogram was performed of the right upper quadrant. COMPARISON: US RT LOWER DVT on DOS: 11/03/24, US BILAT LOWER DVT on DOS: 12/29/23, ABDL on DOS: 07/20/21, ABDOMEN LIMITED on DOS: 07/20/21, BI LOWER DVT on DOS: 07/19/21 FINDINGS: The liver is increased in echogenicity. There is no focal parenchymal abnormality. No intrahepatic b iliary ductal dilatation is present. The liver measures 18.8 cm. The gallbladder contains stones with no wall thickening or pericholecystic fluid this atrophic mendoza sign was reported to be absent. The common bile duct is normal in caliber, measuring 2.7 mm. The pancreas is not seen. The right kidney is normal in echogenicity and measures 10.7 cm in length. There is no evidence for h ydronephrosis or shadowing calculi. IMPRESSION: Cholelithiasis. Hepatic steatosis.
--- NOTE | 2024-11-03 17:26 | DVH ---
CHEST RADIOGRAPH Indication: Baseline Technique: Single frontal view of the chest was obtained Comparison: CHEST PORTABLE on DOS: 07/19/21, CXRP on DOS: 07/19/21, CXRP on DOS: 07/14/21 FINDINGS: The cardiac silhouette is unremarkable. The lungs demonstrate perihilar airspace opacities. The pulmo nary vasculature is prominent. There is no pleural effusion. There is no pneumothorax. IMPRESSION: Pulmonary vascular congestion and bilateral perihilar airspace s
[2024-11-03 17:38] LABS: Triglycerides 66 mg/dL (< 150)
[2024-11-03 17:40] LABS: Cholesterol 131 mg/dL (< 200)
[2024-11-03 17:52] LABS: HDL Cholesterol 82 mg/dL (40-59)
[2024-11-03] MEDS: FUROSEMIDE 40 MG/4 ML VIAL IV SCH (18:00)
[2024-11-03 18:29] LABS: Alanine Aminotransferase 21 U/L (7-40); Albumin 4.4 g/dL (3.2-4.8); Alkaline Phosphatase 66 U/L (46-116); Anion Gap 12 (5-15); BUN/Creatinine Ratio 10.0 (10.0-20.0); Blood Urea Nitrogen 12 mg/dL (9-23); Calcium 9.2 mg/dL (8.7-10.4); Carbon Dioxide 25 mmol/L (20-31); Chloride 104 mmol/L (98-107); Glucose 96 mg/dL (74-106); Potassium 3.5 mmol/L (3.5-5.1); Sodium 141 mmol/L (136-145)
[2024-11-03 18:30] LABS: Bilirubin, Direct 0.6 mg/dL (<0.3); Bilirubin, Total 1.6 mg/dL (0.2-1.0); Total Protein 8.2 g/dL (5.7-8.2)
[2024-11-03 23:11] VITALS: BP 136/81; PULSE 82; RESP 17; TEMP 98.2; O2SAT 97
[2024-11-03] MEDS ORDERED: GABA-1251 PO (23:26)
[2024-11-03] MEDS ORDERED: CHOL20002 PO (23:26)
[2024-11-03] MEDS ORDERED: AMLO1TAB23 PO (23:26)
--- NOTE | 2024-11-03 23:54 | DVH ---
INDICATION: HTN TECHNIQUE: Grayscale, color and spectral Doppler assessment of the kidneys. COMPARISON: None FINDINGS: The right kidney measures 10.6 cm in length. Peak systolic velocity measures 38 cm/sec, end-diastoli c velocity measures 9 cm/sec, and ratio measures 0.2. Resistive index of 0.7. The left kidney measures 10.8 cm in length. Peak systolic velocity measures 48 cm/sec, end-diastolic velocity measures 8 cm/sec, and ratio measures 0.1. Resistive index of 0.8. No evidence of hydronephrosis, stone, or renal lesion. The aorta is not well assessed due to subopti mal acoustic windows. IMPRESSION: 1. Low left renal and diagnostic/ peak systolic velocity ratio with mildly elevated resistive index. 2. Otherwise unremarkable bilateral renal /vascular ultrasound.
[2024-11-04] VITALS (8 sets, daily range): BP systolic 91–132; BP diastolic 59–79; PULSE 75–83; RESP 17–20; TEMP 97.8–98.4; O2SAT 94–97
[2024-11-04] MEDS: CLINDAMYCIN 300MG IV 50 ML IV ONE (00:31)
[2024-11-04] MEDS: FUROSEMIDE 40 MG/4 ML VIAL IV ONE (00:31)
[2024-11-04] MEDS: ceFAZolin 1GM/50ML 50 ML IV SCH (02:26)
[2024-11-04] MEDS: ACETAMINOPHEN 325 MG TAB PO PRN (06:16)
[2024-11-04 07:02] LABS: Hematocrit 37.6 % (41.0-53.0); Hemoglobin 12.5 g/dL (13.5-17.5); Mean Corpuscular Hemoglobin 28.3 pg (28.0-32.0); Mean Corpuscular Volume 85.2 fL (80.0-100.0); Nucleated Red Blood Cells % 0.1 %
[2024-11-04 07:11] LABS: Alanine Aminotransferase 16 U/L (7-40); Albumin 4.3 g/dL (3.2-4.8); Alkaline Phosphatase 67 U/L (46-116); Anion Gap 12 (5-15); BUN/Creatinine Ratio 8.6 (10.0-20.0); Bilirubin, Total 0.7 mg/dL (0.2-1.0); Blood Urea Nitrogen 11 mg/dL (9-23); Calcium 8.9 mg/dL (8.7-10.4); Carbon Dioxide 26 mmol/L (20-31); Chloride 103 mmol/L (98-107); Sodium 141 mmol/L (136-145); Total Protein 8.1 g/dL (5.7-8.2)
[2024-11-04 07:13] LABS: Glucose 131 mg/dL (74-106); Potassium 3.3 mmol/L (3.5-5.1)
[2024-11-04] MEDS: METOPROLOL SUCCINATE XL 50 MG TAB PO SCH (10:34)
[2024-11-04] MEDS: PANTOPRAZOLE 40 MG TAB PO SCH (10:35)
[2024-11-04] MEDS: TAMSULOSIN HYDROCHLORIDE 0.4 MG CAP PO SCH (10:36)
[2024-11-04] MEDS: LOSARTAN POTASSIUM 50 MG TAB PO SCH (10:36)
[2024-11-04] MEDS: ATORVASTATIN 20 MG TAB PO SCH (10:45)
--- NOTE | 2024-11-04 12:17 | DVHPN2 ---
Reviewed: Care Plan, H&P, Labs, Medications, Previous Orders, Radiology Changes from previous H/P or p: No Changes Eyes: No Pain, No Vision change, No Conjunctivae inflammation, No Eyelid inflammation, No Other, No Redness ENT: No Ear pain, No Ear discharge, No Nose pain, No Nose discharge, No Nose congestion, No Mouth pain, No Mouth swelling, No Throat pain, No Throat swelling, No Other Cardiovascular: No Chest Pain, No Palpitations, No Orthopnea, No Paroxysmal Noc. Dyspnea; Edema; No Lt Headedness, No Other Respiratory: No Cough, No Dry, No Shortness of breath, No SOB with excertion, No Wheezing, No Hemoptysis, No Pleuritic Pain, No Sputum, No Other Gastrointestinal: No Nausea, No Vomiting, No Abdominal Pain, No Diarrhea, No Constipation, No Melena, No Hematochezia, No Other Genitourinary: No Dysuria, No Frequency, No Incontinence, No Hematuria, No Retention, No Other Musculoskeletal: No other, No neck pain, No shoulder pain, No arm pain, No back pain, No hand pain, No leg pain, No foot pain Skin: No Rash, No Lesions, No Jaundice, No Bruising, No Other Objective Vitals Vital Signs Date Time Temp Pulse Resp B/P (MAP) Pulse Ox O2 Delivery O2 Flow Rate FiO2 11/04/24 10:36 115/69 11/04/24 10:34 86 11/04/24 08:31 98.4 19 94 98.4 11/03/24 23:11 Room Air* 0 21 Intake/Output Intake and Output 11/04/24 06:59 Intake Total 250 ml Balance 250 ml Intake Oral 100 ml IV Total 150 ml Medications Current Medications Medications Dose Ordered Sig/Yoanna Route Start Time Stop Time Status Last Admin Dose Admin Acetaminophen 650 mg Q6HP PRN PO 11/03/24 15:45 11/04/24 06:16 650 MG Furosemide 40 mg BIDD IV 11/03/24 18:00 11/04/24 05:24 40 MG Pantoprazole Sodium 40 mg DAILY PO 11/04/24 10:00 11/04/24 10:35 40 MG Atorvastatin Calcium 40 mg DAILY PO 11/04/24 10:00 11/04/24 10:45 40 MG Cefazolin Sodium 50 ml @ 100 mls/hr Q6HR IV 11/03/24 18:00 11/04/24 05:21 100 MLS/HR Metoprolol Succinate 100 mg DAILY PO 11/04/24 10:00 11/04/24 10:34 100 MG Losartan Potassium 100 mg DAILY PO 11/04/24 10:00 11/04/24 10:36 100 MG Tamsulosin HCl 0.4 mg DAILY PO 11/04/24 10:00 11/04/24 10:36 0.4 MG Laboratory Results Laboratory Tests 11/04/24 06:11 Chemistry Test 11/03/24 17:44 11/04/24 06:11 Albumin 4.4 g/dL (3.2-4.8) 4.3 g/dL (3.2-4.8) Calcium Level 9.2 mg/dL (8.7-10.4) 8.9 mg/dL (8.7-10.4) Total Protein 8.2 g/dL (5.7-8.2) 8.1 g/dL (5.7-8.2) LFT Test 11/03/24 17:44 11/04/24 06:11 Alanine Aminotransferase (ALT) 21 U/L (7-40) 16 U/L (7-40) Alkaline Phosphatase 66 U/L (46-116) 67 U/L (46-116) Aspartate Amino Transferase (AST) 31 U/L (13-40) 27 U/L (13-40) Direct Bilirubin 0.6 mg/dL (<0.3) H Total Bilirubin 1.6 mg/dL (0.2-1.0) H 0.7 mg/dL (0.2-1.0) Labs and/or images reviewed: Labs reviewed by me, Image(s) reviewed by me Assessment/Plan Assessment/Plan Chronic bilateral lower leg edema possibly venous stasis, cardiology consult, BNP normal Bilateral lower leg cellulitis: Clindamycin DVT ruled out Hypertension Hypercholesterolemia CKD Gout Current alcohol abuse: Banana bag Librium Chronic venous insufficiency Chronic congestive heart failure DVT ruled out Renal arterial ultrasound neg Time Spent 70 minutes Advanced care planning time 20 minutes Patient is full code Patient lives with his mother Plan discussed with: Patient Date of Service: Nov 04, 2024 Billing Provider: CESAR TRIANA MD Common Visit Codes: [id number] CARE 30-74 MIN CESAR TRIANA MD Nov 04, 2024 12:17
[2024-11-04] MEDS: HYDROcodone-ACET 10/325MG TAB PO PRN (14:44)
[2024-11-04] MEDS: GABAPENTIN 400 MG CAP PO SCH (14:48)
[2024-11-04 22:28] LABS: Urine Protein, UAD Negative (Negative)
[2024-11-04 22:45] LABS: Protein, Urine 7.8 mg/dL (1-14)
[2024-11-04 22:49] LABS: Opiate Scree,Urine Neg (NEGATIVE)
[2024-11-04 22:54] LABS: Amphetamine Screen, Urine Neg (NEGATIVE); Barbiturate Scree,Urine Neg (NEGATIVE); Benzodiazephine Screen, Urine Neg (NEGATIVE); Phencyclidine Screen, Urine Neg (NEGATIVE)
[2024-11-04 22:55] LABS: Cannabinoid Screen, Urine Neg (NEGATIVE); Cocaine Screen, Urine Neg (NEGATIVE)
[2024-11-05 01:00] VITALS: BP 97/61; PULSE 73; RESP 18; TEMP 97.9; O2SAT 97
[2024-11-05 05:00] VITALS: BP 111/69; PULSE 75; RESP 17; TEMP 98.2; O2SAT 94
--- NOTE | 2024-11-05 07:34 | DVHSR ---
APPROVED REPORT EXAM: Two-dimensional and M-mode echocardiogram with Doppler and color Doppler. Blood Pressure: 131/79 mmHg INDICATION Rule out CHF RISK FACTORS Height: 72, Weight: 300 DIMENSIONS LVDd (3.8-5.7cm)LA (2D)4.1 (1.9-4.0cm)Aortic Root4.0 (2.0-3.7cm) LVDs (2.5-4.0cm)LA (MM) (1.9-4.0cm)Aortic Cusp Exc2.2 (1.5-2.0cm) EF (%) 63.0 (55-70%)Rt. Atrium4.3 (1.9-4.0cm)Asc. Aorta cm Mitral Valve MitralMitral Stenosis E wave0.73m/sMV Mean GR.mmHg A wave1.10m/sMV Peak GR.mmHg E/A ratio0.72D MVAcm2 DECEL [id number] 1/2 [id number] IVRTmsDop MVA4.48cm2 Aortic Valve Aortic ValveAortic Stenosis V11.13m/Tiara Mean GR.3mmHg V21.27m/Tiara Peak GR.6mmHg LVOT Diameter2.3 (1.8-2.4cm)Doppler AVA3.69cm2 Other Information Technically limited study due to body habitus and patient position. Conclusion lvef 65 % mild lvh grade 1 diastolic dysfunction RV borderline enlarged left atrium enlarged mild no severe valve abnormality noted
--- NOTE | 2024-11-05 08:22 | DVHPN2 ---
Reviewed: Care Plan, H&P, Labs, Medications, Previous Orders, Radiology Changes from previous H/P or p: No Changes Eyes: No Pain, No Vision change, No Conjunctivae inflammation, No Eyelid inflammation, No Other, No Redness ENT: No Ear pain, No Ear discharge, No Nose pain, No Nose discharge, No Nose congestion, No Mouth pain, No Mouth swelling, No Throat pain, No Throat swelling, No Other Cardiovascular: No Chest Pain, No Palpitations, No Orthopnea, No Paroxysmal Noc. Dyspnea; Edema; No Lt Headedness, No Other Respiratory: No Cough, No Dry, No Shortness of breath, No SOB with excertion, No Wheezing, No Hemoptysis, No Pleuritic Pain, No Sputum, No Other Gastrointestinal: No Nausea, No Vomiting, No Abdominal Pain, No Diarrhea, No Constipation, No Melena, No Hematochezia, No Other Genitourinary: No Dysuria, No Frequency, No Incontinence, No Hematuria, No Retention, No Other Musculoskeletal: No other, No neck pain, No shoulder pain, No arm pain, No back pain, No hand pain, No leg pain, No foot pain Skin: No Rash, No Lesions, No Jaundice, No Bruising, No Other Objective Vitals Vital Signs Date Time Temp Pulse Resp B/P (MAP) Pulse Ox O2 Delivery O2 Flow Rate FiO2 11/05/24 05:44 131/79 11/05/24 05:00 98.2 75 17 94 98.2 11/04/24 20:00 Room Air* 0 21 Intake/Output Intake and Output 11/05/24 07:00 Intake Total 1520 ml Output Total 2180 ml Balance -660 ml Intake Oral 1320 ml IV Total 200 ml Output Urine Total 2180 ml Medications Current Medications Medications Dose Ordered Sig/Yoanna Route Start Time Stop Time Status Last Admin Dose Admin Acetaminophen 650 mg Q6HP PRN PO 11/03/24 15:45 11/04/24 06:16 650 MG Furosemide 40 mg BIDD IV 11/03/24 18:00 11/05/24 05:44 40 MG Pantoprazole Sodium 40 mg DAILY PO 11/04/24 10:00 11/04/24 10:35 40 MG Atorvastatin Calcium 40 mg DAILY PO 11/04/24 10:00 11/04/24 10:45 40 MG Cefazolin Sodium 50 ml @ 100 mls/hr Q6HR IV 11/03/24 18:00 11/05/24 05:44 100 MLS/HR Metoprolol Succinate 100 mg DAILY PO 11/04/24 10:00 11/04/24 10:34 100 MG Losartan Potassium 100 mg DAILY PO 11/04/24 10:00 11/04/24 10:36 100 MG Tamsulosin HCl 0.4 mg DAILY PO 11/04/24 10:00 11/04/24 10:36 0.4 MG Acetaminophen/ Hydrocodone Bitart 1 tab Q6HP PRN PO 11/04/24 12:30 11/05/24 05:48 1 TAB Amlodipine Besylate 10 mg DAILY PO 11/05/24 10:00 Gabapentin 400 mg TID PO 11/04/24 14:00 11/05/24 05:45 400 MG Laboratory Results Laboratory Tests 11/04/24 06:11 Urinalysis Test 11/04/24 21:15 Urine Color Light-yellow (Yellow) Urine Clarity Clear (Clear) Urine pH 6.0 (5.0-9.0) Urine Specific [place] 1.011 (1.001-1.035) Urine Protein Negative (Negative) Urine Ketones Negative (Negative) Urine Blood Trace /uL (Negative) H Urine Nitrite Negative (Negative) Urine Bilirubin Negative (Negative) Urine Urobilinogen Normal mg/dL (Negative) Urine Leukocyte Esterase Negative /uL (Negative) Urine RBC 5 /hpf (0 - 3) Urine Microscopic WBC 1 /HPF (0-3) Urine Squamous Epithelial Cells Few /hpf (<5) Urine Bacteria None seen /hpf (None Seen) Urine Creatinine 80.66 mg/dL (30.0-125.0) Urine Protein/Creatinine Ratio 0.10 Urine Sodium 100 mmol/L (40-220) Urine Glucose Normal mg/dL (Normal) Urine Total Protein 7.8 mg/dL (1-14) Labs and/or images reviewed: Labs reviewed by me, Image(s) reviewed by me Assessment/Plan Assessment/Plan Chronic bilateral lower leg edema possibly venous stasis, cardiology consult for Dr. Palmer BNP normal Bilateral lower leg cellulitis: Clindamycin DVT ruled out Hypertension Hypercholesterolemia CKD Gout Current alcohol abuse: Banana bag Librium Chronic venous insufficiency Chronic congestive heart failure DVT ruled out Renal arterial ultrasound neg Time Spent 70 minutes Advanced care planning time 20 minutes Patient is full code Patient lives with his mother Plan discussed with: Patient My Orders Orders - CESAR TRIANA MD Procedure Category Date Status Time Hydrocodone-Acet PHA 11/04/24 In Process 10/325mg Tab ([place] 12:30 Amlodipine Tablet PHA 11/05/24 In Process (Norvasc Tablet) 10:00 Gabapentin Capsule PHA 11/04/24 In Process (Neurontin Capsule) 14:00 Mrsa Screen JOS 11/04/24 In Process 21:23 Date of Service: Nov 05, 2024 Billing Provider: CESAR TRIANA MD Common Visit Codes: [id number] INP/OBS CARE(HIGH) CESAR TRIANA MD Nov 05, 2024 08:22
[2024-11-05 09:00] VITALS: BP 111/72; PULSE 64; RESP 17; TEMP 97.9; O2SAT 93
--- NOTE | 2024-11-05 12:00 | DVH ---
Indication: Bilateral lower extremity swelling Technique: Real- time ultrasound images of the bilateral lower extremity with grayscale, color, and spectral wave Doppler. Comparison: BLEAD on DOS: 05/21/21 Findings: Monophasic waveform in the right SEMICONDUCTOR WAFERS ETCH OPERATOR, SFA, popliteal for popliteal arteries. Monophasic waveforms in the left SEMICONDUCTOR WAFERS ETCH OPERATOR, SFA, popliteal, infrapopliteal arteries. Likely occlusion of the left dorsalis pedis ar kosta. Left popliteal fossa Robledo's cyst measuring 9.5 x 2.8 cm. Peak systolic velocities are as follows (in cm/s): Right: Common femoral artery: 136 Profunda femoris: 55 Proximal superficial femoral: 121 Mid superficial femoral artery: 228 Distal superficial femoral artery: 160 Popliteal artery: 70 Posterior tibial artery: 106 Anterior tibial artery: 39 Dorsalis pedis artery: 106 Left: Common femoral artery: 129 Profunda femoris: 118 Proximal superficial femoral: 100 Mid superficial femoral artery: 118 Distal superficial femoral artery: 157 Popliteal artery: 135 Posterior tibial artery: 269 Anterior tibial artery: 145 Dorsalis pedis artery: 27 Impression: Advanced peripheral arterial disease. High-grade stenosis right mid SFA. Moderate grade stenosis of the distal left SFA. High-grade stenoses within the bilateral infrapopliteal/ tibial vasculature gisela cially pronounced within the left posterior tibial artery. Likely segment of occlusion within the lef t dorsalis pedis artery. Left popliteal fossa Robledo's cyst measuring 9.5 cm.
--- NOTE | 2024-11-05 12:34 | DVHINCON2 ---
Date Seen: Nov 05, 2024 Referring Physician MD Samir Reason for Consultation Bilateral leg edema History of Present Illness This is a 69-year-old male patient presents to the emergency room with chief complaint bilateral lower extremity edema for one week. Cardiology has been consulted at this time for further evaluation. No twelve lead electrocardiogram is seen in patient's hard chart or on [facility]. A twelve lead electrocardiogram was requested at time of assessment and reveals normal sinus rhythm with first-degree conduction delay. Patient reports chronic venous insufficiency with a associated chronic bilateral lower extremity edema which has worsened during the past week. He denies chest pain, palpitations, diaphoresis, shortness of breath, or syncopal events. Patient denies a medical history of congestive heart failure. BNP level is negative (3.85pg/mL). 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 Of note, previous providers documented history of CHF which the patient denies. Patient also mentions a peripheral angiogram approximately one year ago. The patient denies stent placement. Past Medical History Past medical history reviewed. No other significant than mentioned above. Past Surgical History Right knee replacement Family History: Arthritis G8 MOTHER Diabetes mellitus G8 MOTHER FH: cancer GRANDMOTHER, Hypertension G8 MOTHER Family History Family history reviewed. Social History Patient has a 30 pack-year history, quit smoking on August 21, 2024 Patient admits to previous cocaine use, quit in the Patient admits to daily alcohol consumption, half a pt of gin daily Allergies: Coded Allergies: NO KNOWN ALLERGIES (Unverified , 07/19/13) Home Meds Active Scripts Allopurinol (Allopurinol) 100 Mg Tab, 100 MG PO DAILY for 30 Days, #30 TAB 3 Refills Prov:MAKENZIE BENNETT MD 07/23/21 Reported Medications Cholecalciferol (VITAMIN D3) 2,000 Unit Tab, 1 CAP PO DAILY 11/03/24 Gabapentin (Gabapentin) 400 Mg Cap, 1 CAP PO TID 11/03/24 Amlodipine Besylate (Amlodipine Besylate) 10 Mg Tab, 1 TAB PO DAILY 11/03/24 Oxycodone W/ Acetaminophen (Oxycodone/Acetaminophen 10-300 mg) 1 Tab Tab 11/9/24 Atorvastatin Calcium (ATORVASTATIN CALCIUM) 40 Mg Tab, 1 TAB PO DAILY 05/19/21 Metoprolol Succinate (Metoprolol Succinate Er) 100 Mg Tab, 1 TAB PO DAILY 05/19/21 Tamsulosin Hcl (Tamsulosin Hcl) 0.4 Mg Cap, 1 CAP PO DAILY 05/19/21 Losartan Potassium (Losartan Potassium) 100 Mg Tab, 1 TAB PO DAILY 05/19/21 Home Meds Home medications reviewed. Current Medications Current Medications Medications (Trade) Dose Ordered Sig/Oyanna Route PRN Reason Start Time Stop Time Status Last Admin Acetaminophen/ Hydrocodone Bitart ([place] 10/325MG Tab) 1 tab Q6HP PRN PO MODERATE PAIN (4-6 PAIN SCALE) 11/04/24 12:30 11/05/24 05:48 Amlodipine Besylate (Norvasc Tablet) 10 mg DAILY PO 11/05/24 10:00 11/05/24 09:14 Gabapentin (Neurontin Capsule) 400 mg TID PO 11/04/24 14:00 11/05/24 05:45 Folic Acid 1 mg/ Multivitamins 10 ml/Magnesium Sulfate 8 meq/ Thiamine HCl 100 mg/Dextrose 1,013.2 ml @ 125.001 mls/hr DAILY@1800 INJ 11/05/24 18:00 Chlordiazepoxide HCl (Librium Capsule) 50 mg Q8H PO 11/05/24 08:30 11/06/24 00:31 11/05/24 12:16 Chlordiazepoxide HCl (Librium Capsule) 50 mg Q12HR PO 11/06/24 10:00 11/06/24 22:01 Chlordiazepoxide HCl (Librium Capsule) 25 mg Q12HR PO 11/07/24 10:00 11/07/24 22:01 Chlordiazepoxide HCl (Librium Capsule) 25 mg QAM PO 11/08/24 07:00 11/08/24 07:01 Review of Systems Constitutional: No symptom reported Ears, Nose, & Throat: No symptom reported Eyes: No symptom reported Neurological: No symptoms reported Pulmonary/Respiratory: No symptoms reported Cardiovascular: Bilateral lower extremity edema Gastrointestinal: No symptom reported Genitourinary: No symptom reported Musculoskeletal: No symptom reported Skin: No symptom reported Psychiatric: No symptom reported Endocrine: No symptom reported Hematologic/Lymphatic: No symptom reported Vital Signs Vital Signs Date Time Temp Pulse Resp B/P (MAP) Pulse Ox O2 Delivery O2 Flow Rate FiO2 11/05/24 09:14 111/72 11/05/24 09:12 93 11/05/24 09:00 97.9 17 93 97.9 11/05/24 08:00 Room Air* 0 21 Physical Exam General Appearance: Cooperative. Morbidly obese Pulmonary/Respiratory: Clear, bilateral breaths sounds. Cardiovascular/Chest: Regular rate and rhythm. Peripheral Pulses: 2+ Radial (R). 2+ Radial (L). (Ultrasound of lower extremities being done at time of assessment) Abdominal Exam: Normal bowel sounds. Ankle Exam: 4+ pitting edema Lower extremities: 4+ pitting edema Neuro/Mental Status: A/OX4, coherent. Thoughts/Psych: Normal thought pattern. Appropriate mood and affect. Good judgment and insight. Appearance: No acute distress. Skin Exam: Normal inspection. Normal color. Warm and dry. Labs/Diagnostic Data Labs Test 11/04/24 21:15 11/04/24 06:11 11/03/24 17:44 11/03/24 10:17 Range/Units Urine Color Light-yellow Yellow Urine Clarity Clear Clear Urine pH 6.0 5.0-9.0 Urine Specific [place] 1.011 1.001-1.035 Urine Protein Negative Negative Urine Ketones Negative Negative Urine Blood Trace H Negative /uL Urine Nitrite Negative Negative Urine Bilirubin Negative Negative Urine Urobilinogen Normal Negative mg/dL Urine Leukocyte Esterase Negative Negative /uL Urine RBC 5 0 - 3 /hpf Urine Microscopic WBC 1 0-3 /HPF Urine Squamous Epithelial Cells Few <5 /hpf Urine Bacteria None seen None Seen /hpf Urine Creatinine 80.66 30.0-125.0 mg/dL Urine Protein/Creatinine Ratio 0.10 Urine Sodium 100 40-220 mmol/L Urine Glucose Normal Normal mg/dL Urine Total Protein 7.8 1-14 mg/dL Urine Opiates Screen Neg NEGATIVE Urine Fentanyl Screen Neg NEGATIVE Urine Barbiturates Screen Neg NEGATIVE Urine Phencyclidine Screen Neg NEGATIVE Urine Amphetamines Screen Neg NEGATIVE Urine Benzodiazepines Screen Neg NEGATIVE Urine Cocaine Screen Neg NEGATIVE Urine Cannabinoids Screen Neg NEGATIVE White Blood Count 6.1 4.4-10.8 10^3/uL Red Blood Count 4.41 L 4.5-5.90 10^6/uL Hemoglobin 12.5 L 13.5-17.5 g/dL Hematocrit 37.6 L 41.0-53.0 % Mean Corpuscular Volume 85.2 80.0-100.0 fL Mean Corpuscular Hemoglobin 28.3 28.0-32.0 pg Mean Corpuscular Hemoglobin Concent 33.2 32.0-36.0 g/dL Red Cell Distribution Width 16.0 H 11.8-14.3 % Platelet Count 233 140-450 10^3/uL Mean Platelet Volume 8.1 6.9-10.8 fL Neutrophils (%) (Auto) 75.2 37.0-80.0 % Lymphocytes (%) (Auto) 9.6 L 10.0-50.0 % Monocytes (%) (Auto) 11.7 0.0-12.0 % Eosinophils (%) (Auto) 2.8 0.0-7.0 % Basophils (%) (Auto) 0.7 0.0-2.0 % Neutrophils # (Auto) 4.6 1.6-8.6 10 ^3/uL Lymphocytes # (Auto) 0.6 0.4-5.4 10 ^3/uL Monocytes # (Auto) 0.7 0-1.3 10 ^3/uL Eosinophils # (Auto) 0.2 0-0.8 10 ^3/uL Basophils # (Auto) 0 0-0.2 10 ^3/uL Nucleated Red Blood Cells 0.1 % Sodium Level 141 136-145 mmol/L Potassium Level 3.3 L 3.5-5.1 mmol/L Chloride Level 103 98-107 mmol/L Carbon Dioxide Level 26 20-31 mmol/L Anion Gap 12 5-15 Blood Urea Nitrogen 11 9-23 mg/dL Creatinine 1.28 0.700-1.30 mg/dL Glomerular Filtration Rate Calc 60 >90 mL/min BUN/Creatinine Ratio 8.6 L 10.0-20.0 Serum Glucose 131 H 74-106 mg/dL Calcium Level 8.9 8.7-10.4 mg/dL Total Bilirubin 0.7 0.2-1.0 mg/dL Aspartate Amino Transferase (AST) 27 13-40 U/L Alanine Aminotransferase (ALT) 16 7-40 U/L Alkaline Phosphatase 67 46-116 U/L Total Protein 8.1 5.7-8.2 g/dL Albumin 4.3 3.2-4.8 g/dL Thyroid Stimulating Hormone (TSH) 2.95 0.55-4.78 uIU/mL Direct Bilirubin 0.6 H <0.3 mg/dL Hemoglobin A1c 5.7 <5.7 % A1C Troponin I High Sensitivity < 3 L </=54 ng/L B-Type Natriuretic Peptide 3.85 0-100 pg/mL Triglycerides Level 66 < 150 mg/dL Cholesterol Level 131 < 200 mg/dL LDL Cholesterol 32 < 100 mg/dL HDL Cholesterol 82 H 40-59 mg/dL Microbiology Date/Time Source Procedure Growth Status 11/04/24 05:40 Leg Right Gram Stain - Final Resulted 11/04/24 05:40 Leg Right Wound Culture - Preliminary Resulted Assessment Severe peripheral arterial disease Chronic venous insufficiency Hypertension Hepatitis-C Obesity Tobacco use Alcohol use Plan/Recommendation We will continue with the following plan/recommendations (Dr. Palmer): A transthoracic echocardiogram done on this admission reveals an EF of 65%. [facility] Heart Failure Diagnostic Criteria is negative. A lower extremity arterial duplex reveals advanced peripheral arterial disease with high-grade stenosis in the right mid SFA and high-grade stenosis within the bilateral infrapopliteal/tibial vasculature. The patient reports undergoing a peripheral angiogram last year with his vascular doctor. He is a very poor historian, but does not believe that there was any stent placement at that time. Given the patient's clinical presentation and arterial duplex findings, the patient was offered to undergo a peripheral angiogram during this admission. All risks and benefits discussed with the patient full detail. The patient verbally agreed. We will schedule the patient for a peripheral angiogram on 11/07/2024 at soonest availability. In the meantime, continue with blood pressure control, single antiplatelet therapy, and lipid-lowering agent. Thank you for allowing us to participate in this patient's care. This medical document was created using an electronic medical record system with voice recognition software and computerized dictation system. Although this document has been carefully reviewed, there might still be some phonetic and typographical errors. Occasional wrong-word or ``sound-alike substitutions may have occurred due to the inherent limitations of voice recognition software. These areas are purely typographical due to imperfections of the software programs and do not reflect any compromise in the patient's medical care. Please read the chart carefully and recognize, using context, where these substitutions have occurred. Plan discussed with: Patient NYHA Physical activity limitations: NA Date of Service: Nov 05, 2024 Billing Provider: YANELI PARKER Cardiology Common Codes: [id number] INP/OBS CARE (High) Cardiology Consultation Codes: [id number] CONSULT <45MIN YANELI PARKER Nov 05, 2024 12:34
[2024-11-05 12:51] VITALS: BP 120/68; PULSE 73; RESP 18; TEMP 97.6; O2SAT 93
[2024-11-05 16:48] VITALS: BP 103/68; PULSE 74; RESP 17; TEMP 98.5; O2SAT 98
[2024-11-05 20:50] VITALS: BP_SYST 104; PULSE 83; RESP 19; TEMP 98.1; O2SAT 91
[2024-11-05] MEDS: FOLIC ACID 1 MG, MULTIPLE VITAMIN 10 ML, MAGNESIUM SULF SDV 50% 8 MEQ, THIAMINE INJ 100... INJ SCH (21:42)
[2024-11-06 01:00] VITALS: BP 126/79; PULSE 80; RESP 18; TEMP 98; O2SAT 91
[2024-11-06 05:00] VITALS: BP 107/69; PULSE 78; RESP 18; TEMP 98.1; O2SAT 91
[2024-11-06 08:44] VITALS: BP 118/83; PULSE 78; RESP 18; TEMP 98.5; O2SAT 96
--- NOTE | 2024-11-06 10:19 | DVHPN2 ---
Reviewed: Care Plan, H&P, Labs, Medications, Previous Orders, Radiology Changes from previous H/P or p: No Changes Eyes: No Pain, No Vision change, No Conjunctivae inflammation, No Eyelid inflammation, No Other, No Redness ENT: No Ear pain, No Ear discharge, No Nose pain, No Nose discharge, No Nose congestion, No Mouth pain, No Mouth swelling, No Throat pain, No Throat swelling, No Other Cardiovascular: No Chest Pain, No Palpitations, No Orthopnea, No Paroxysmal Noc. Dyspnea; Edema; No Lt Headedness, No Other Respiratory: No Cough, No Dry, No Shortness of breath, No SOB with excertion, No Wheezing, No Hemoptysis, No Pleuritic Pain, No Sputum, No Other Gastrointestinal: No Nausea, No Vomiting, No Abdominal Pain, No Diarrhea, No Constipation, No Melena, No Hematochezia, No Other Genitourinary: No Dysuria, No Frequency, No Incontinence, No Hematuria, No Retention, No Other Musculoskeletal: No other, No neck pain, No shoulder pain, No arm pain, No back pain, No hand pain, No leg pain, No foot pain Skin: No Rash, No Lesions, No Jaundice, No Bruising, No Other Objective Vitals Vital Signs Date Time Temp Pulse Resp B/P (MAP) Pulse Ox O2 Delivery O2 Flow Rate FiO2 11/06/24 08:44 98.5 78 18 118/83 (95) 96 98.5 11/05/24 20:00 Room Air* 0 21 Intake/Output Intake and Output 11/06/24 07:00 Intake Total 1500 ml Output Total 3575 ml Balance -2075 ml Intake Oral 1400 ml IV Total 100 ml Output Urine Total 3575 ml Medications Current Medications Medications Dose Ordered Sig/Yoanna Route Start Time Stop Time Status Last Admin Dose Admin Acetaminophen 650 mg Q6HP PRN PO 11/03/24 15:45 11/04/24 06:16 650 MG Furosemide 40 mg BIDD IV 11/03/24 18:00 11/06/24 06:21 40 MG Pantoprazole Sodium 40 mg DAILY PO 11/04/24 10:00 11/05/24 09:14 40 MG Atorvastatin Calcium 40 mg DAILY PO 11/04/24 10:00 11/05/24 09:13 40 MG Cefazolin Sodium 50 ml @ 100 mls/hr Q6HR IV 11/03/24 18:00 11/06/24 06:18 100 MLS/HR Metoprolol Succinate 100 mg DAILY PO 11/04/24 10:00 11/05/24 09:12 100 MG Losartan Potassium 100 mg DAILY PO 11/04/24 10:00 11/05/24 09:12 100 MG Tamsulosin HCl 0.4 mg DAILY PO 11/04/24 10:00 11/05/24 09:14 0.4 MG Acetaminophen/ Hydrocodone Bitart 1 tab Q6HP PRN PO 11/04/24 12:30 11/06/24 08:30 1 TAB Amlodipine Besylate 10 mg DAILY PO 11/05/24 10:00 11/05/24 09:14 10 MG Gabapentin 400 mg TID PO 11/04/24 14:00 11/06/24 06:18 400 MG Folic Acid 1 mg/ Multivitamins 10 ml/Magnesium Sulfate 8 meq/ Thiamine HCl 100 mg/Dextrose 1,013.2 ml @ 125.001 mls/hr DAILY@1800 INJ 11/05/24 18:00 11/05/24 21:42 125.001 MLS/HR Chlordiazepoxide HCl 50 mg Q12HR PO 11/06/24 10:00 11/06/24 22:01 Chlordiazepoxide HCl 25 mg Q12HR PO 11/07/24 10:00 11/07/24 22:01 Chlordiazepoxide HCl 25 mg QAM PO 11/08/24 07:00 11/08/24 07:01 Laboratory Results Laboratory Tests 11/04/24 06:11 Urinalysis Test 11/04/24 21:15 Urine Color Light-yellow (Yellow) Urine Clarity Clear (Clear) Urine pH 6.0 (5.0-9.0) Urine Specific [place] 1.011 (1.001-1.035) Urine Protein Negative (Negative) Urine Ketones Negative (Negative) Urine Blood Trace /uL (Negative) H Urine Nitrite Negative (Negative) Urine Bilirubin Negative (Negative) Urine Urobilinogen Normal mg/dL (Negative) Urine Leukocyte Esterase Negative /uL (Negative) Urine RBC 5 /hpf (0 - 3) Urine Microscopic WBC 1 /HPF (0-3) Urine Squamous Epithelial Cells Few /hpf (<5) Urine Bacteria None seen /hpf (None Seen) Urine Creatinine 80.66 mg/dL (30.0-125.0) Urine Protein/Creatinine Ratio 0.10 Urine Sodium 100 mmol/L (40-220) Urine Glucose Normal mg/dL (Normal) Urine Total Protein 7.8 mg/dL (1-14) Microbiology Microbiology Date/Time Source Procedure Growth Status 11/04/24 21:30 Blood Blood Culture - Preliminary NO GROWTH AFTER 24 HOURS OF INCUBATION. Resulted 11/04/24 21:15 Nose MRSA Screen - Final Complete Labs and/or images reviewed: Labs reviewed by me, Image(s) reviewed by me Assessment/Plan Assessment/Plan Severe bilateral peripheral arterial disease scheduled for peripheral angiogram by Dr. Palmer on 11/07/2024 Chronic venous insufficiency Chronic congestive heart failure Chronic bilateral lower leg edema possibly venous stasis, cardiology consult for Dr. Palmer BNP normal Bilateral lower leg cellulitis: Clindamycin DVT ruled out Hypertension Hypercholesterolemia CKD Gout Hepatitis C Current alcohol abuse: Banana bag Librium Chronic current smoker: Counseling DVT ruled out Time Spent 70 minutes Advanced care planning time 20 minutes Patient is full code Patient lives with his mother Spoke to patient's daughter on the phone Dariel CUELLO who works down the [employer]. [phone]; time spent 25 minutes Plan discussed with: Patient Date of Service: Nov 06, 2024 Billing Provider: CESAR TRIANA MD Common Visit Codes: [id number] CARE 30-74 MIN CESAR TRIANA MD Nov 06, 2024 10:19
[2024-11-06 13:00] VITALS: BP 116/72; PULSE 70; RESP 16; TEMP 97.5; O2SAT 95
--- NOTE | 2024-11-06 13:12 | ECG ---
[facility] Test Date: 2024-11-05 Test Time: 11:08:36 Pat Name: URSULA MARIEE Department: Respiratoy Room: 0221 A Gender: M [employer] Engineer: RACHEL : 1955 Requested By: YANELI PARKER Order Number: [id number] Reading MD: Nicholas Palmer Measurements Intervals Drifting Rate: 68 P: 4 IA: 231 QRS: 15 QRSD: 84 T: 32 QT: 464 QTc: 494 Interpretive Statements Sinus rhythm Prolonged IA interval Borderline T wave abnormalities Borderline prolonged QT interval Electronically Signed On 11-06-2024 15:08:10 PDT by Nicholas Palmer Please click the below link to view image of tracing.
--- NOTE | 2024-11-06 14:31 | DVHPN2 ---
Consult Progress Note Subjective Other Systems: Patient denies any cardiac symptoms at time of assessment Objective vital signs Vital Sign Date Time Temp Pulse Resp B/P (MAP) Pulse Ox O2 Delivery O2 Flow Rate FiO2 11/06/24 13:00 97.5 70 16 116/72 (87) 95 97.5 11/05/24 20:00 Room Air* 0 21 Total Intake and Output 11/05/24 11/05/24 11/06/24 15:00 23:00 07:00 Intake Total 50 ml 1050 ml 400 ml Output Total 1800 ml 1775 ml Balance 50 ml -750 ml -1375 ml medications Current Medications Medications Dose Ordered Sig/Yoanna Route Start Time Stop Time Status Last Admin Dose Admin Acetaminophen 650 mg Q6HP PRN PO 11/03/24 15:45 11/04/24 06:16 650 MG Furosemide 40 mg BIDD IV 11/03/24 18:00 11/06/24 06:21 40 MG Pantoprazole Sodium 40 mg DAILY PO 11/04/24 10:00 11/06/24 10:09 40 MG Atorvastatin Calcium 40 mg DAILY PO 11/04/24 10:00 11/06/24 10:09 40 MG Cefazolin Sodium 50 ml @ 100 mls/hr Q6HR IV 11/03/24 18:00 11/06/24 12:00 100 MLS/HR Metoprolol Succinate 100 mg DAILY PO 11/04/24 10:00 11/06/24 10:10 100 MG Losartan Potassium 100 mg DAILY PO 11/04/24 10:00 11/06/24 10:08 100 MG Tamsulosin HCl 0.4 mg DAILY PO 11/04/24 10:00 11/06/24 10:09 0.4 MG Acetaminophen/ Hydrocodone Bitart 1 tab Q6HP PRN PO 11/04/24 12:30 11/06/24 08:30 1 TAB Amlodipine Besylate 10 mg DAILY PO 11/05/24 10:00 11/06/24 10:09 10 MG Gabapentin 400 mg TID PO 11/04/24 14:00 11/06/24 13:34 400 MG Folic Acid 1 mg/ Multivitamins 10 ml/Magnesium Sulfate 8 meq/ Thiamine HCl 100 mg/Dextrose 1,013.2 ml @ 125.001 mls/hr DAILY@1800 INJ 11/05/24 18:00 11/05/24 21:42 125.001 MLS/HR Chlordiazepoxide HCl 50 mg Q12HR PO 11/06/24 10:00 11/06/24 22:01 11/06/24 10:10 50 MG Chlordiazepoxide HCl 25 mg Q12HR PO 11/07/24 10:00 11/07/24 22:01 Chlordiazepoxide HCl 25 mg QAM PO 11/08/24 07:00 11/08/24 07:01 Examination: GENERAL:Normal, LUNGS:Normal, CVS:Abnormal (Bilateral lower extremity edema), NEURO:Normal laboratory and microbiology Laboratory Tests 11/04/24 06:11 Test 11/04/24 06:11 Range/Units Serum Glucose 131 H 74-106 mg/dL Problem List/Assessment/Plan Problem List/Assessment/Plan Severe peripheral arterial disease Chronic venous insufficiency Hypertension Hepatitis-C Obesity Tobacco use Alcohol use Plan/Recommendations (Dr. Palmer): A transthoracic echocardiogram done on this admission reveals an EF of 65%. [place] Heart Failure Diagnostic Criteria is negative. A lower extremity arterial duplex reveals advanced peripheral arterial disease with high-grade stenosis in the right mid SFA and high-grade stenosis within the bilateral infrapopliteal/tibial vasculature. The patient reports undergoing a peripheral angiogram last year with his vascular doctor. He is a very poor historian, but does not believe that there was any stent placement at that time. Given the patient's clinical presentation and arterial duplex findings, the patient was offered to undergo a peripheral angiogram during this admission. All risks and benefits discussed with the patient full detail. The patient verbally agreed. We will schedule the patient for a peripheral angiogram on 11/07/2024 at soonest availability. In the meantime, continue with blood pressure control, single antiplatelet therapy, and lipid-lowering agent. Thank you for allowing us to participate in this patient's care. This medical document was created using an electronic medical record system with voice recognition software and computerized dictation system. Although this document has been carefully reviewed, there might still be some phonetic and typographical errors. Occasional wrong-word or ``sound-alike substitutions may have occurred due to the inherent limitations of voice recognition software. These areas are purely typographical due to imperfections of the software programs and do not reflect any compromise in the patient's medical care. Please read the chart carefully and recognize, using context, where these substitutions have occurred. Plan discussed with: Patient Date of Service: Nov 06, 2024 Billing Provider: YANELI PARKER Common Visit Codes: [id number] INP/OBS CARE(HIGH) YANELI PARKER Nov 06, 2024 14:31
[2024-11-06 17:00] VITALS: BP 107/69; PULSE 73; RESP 18; TEMP 98; O2SAT 98
[2024-11-06] MEDS: MAGNESIUM OXIDE 400 MG TAB PO ONE (18:24)
[2024-11-06] MEDS: MULTIPLE VITAMIN TAB PO ONE (18:24)
[2024-11-06] MEDS: FOLIC ACID 1 MG TAB PO ONE (18:24)
[2024-11-06] MEDS: THIAMINE HCL 100 MG TAB PO ONE (18:24)
[2024-11-06 21:00] VITALS: BP 110/75; PULSE 78; RESP 18; TEMP 97.8; O2SAT 91
[2024-11-07] VITALS (11 sets, daily range): BP systolic 108–146; BP diastolic 56–80; PULSE 77–91; RESP 15–24; TEMP 97.6–99.9; O2SAT 87–97
[2024-11-07 06:30] LABS: Hematocrit 38.0 % (41.0-53.0); Hemoglobin 12.7 g/dL (13.5-17.5); Mean Corpuscular Hemoglobin 28.5 pg (28.0-32.0); Mean Corpuscular Volume 85.4 fL (80.0-100.0); Nucleated Red Blood Cells % 0.1 %
[2024-11-07 06:41] LABS: INR 1.04 (0.9-1.15); Partial Thromboplastin Time 48.6 SEC (24.5-34.5); Prothrombin Time 11.0 sec (9.3-11.8)
[2024-11-07 06:56] LABS: Anion Gap 11 (5-15); Carbon Dioxide 28 mmol/L (20-31); Chloride 99 mmol/L (98-107); Sodium 138 mmol/L (136-145)
[2024-11-07 06:57] LABS: Potassium 3.4 mmol/L (3.5-5.1)
[2024-11-07 06:58] LABS: Calcium 9.1 mg/dL (8.7-10.4)
[2024-11-07 07:03] LABS: BUN/Creatinine Ratio 9.1 (10.0-20.0); Blood Urea Nitrogen 13 mg/dL (9-23)
[2024-11-07 07:08] LABS: Glucose 108 mg/dL (74-106)
--- NOTE | 2024-11-07 08:22 | DVHPN2 ---
Reviewed: Care Plan, H&P, Labs, Medications, Previous Orders, Radiology Changes from previous H/P or p: No Changes Eyes: No Pain, No Vision change, No Conjunctivae inflammation, No Eyelid inflammation, No Other, No Redness ENT: No Ear pain, No Ear discharge, No Nose pain, No Nose discharge, No Nose congestion, No Mouth pain, No Mouth swelling, No Throat pain, No Throat swelling, No Other Cardiovascular: No Chest Pain, No Palpitations, No Orthopnea, No Paroxysmal Noc. Dyspnea; Edema; No Lt Headedness, No Other Respiratory: No Cough, No Dry, No Shortness of breath, No SOB with excertion, No Wheezing, No Hemoptysis, No Pleuritic Pain, No Sputum, No Other Gastrointestinal: No Nausea, No Vomiting, No Abdominal Pain, No Diarrhea, No Constipation, No Melena, No Hematochezia, No Other Genitourinary: No Dysuria, No Frequency, No Incontinence, No Hematuria, No Retention, No Other Musculoskeletal: No other, No neck pain, No shoulder pain, No arm pain, No back pain, No hand pain, No leg pain, No foot pain Skin: No Rash, No Lesions, No Jaundice, No Bruising, No Other Objective Vitals Vital Signs Date Time Temp Pulse Resp B/P (MAP) Pulse Ox O2 Delivery O2 Flow Rate FiO2 11/07/24 06:09 113/78 11/07/24 05:00 97.7 77 18 93 97.7 11/06/24 20:00 Room Air* 0 21 Intake/Output Intake and Output 11/07/24 07:00 Intake Total 1550 ml Output Total 1100 ml Balance 450 ml Intake Oral 1400 ml IV Total 150 ml Output Urine Total 1100 ml # Voids 6 Medications Current Medications Medications Dose Ordered Sig/Yoanna Route Start Time Stop Time Status Last Admin Dose Admin Acetaminophen 650 mg Q6HP PRN PO 11/03/24 15:45 11/04/24 06:16 650 MG Furosemide 40 mg BIDD IV 11/03/24 18:00 11/07/24 06:09 40 MG Pantoprazole Sodium 40 mg DAILY PO 11/04/24 10:00 11/06/24 10:09 40 MG Atorvastatin Calcium 40 mg DAILY PO 11/04/24 10:00 11/06/24 10:09 40 MG Cefazolin Sodium 50 ml @ 100 mls/hr Q6HR IV 11/03/24 18:00 11/07/24 05:55 100 MLS/HR Metoprolol Succinate 100 mg DAILY PO 11/04/24 10:00 11/06/24 10:10 100 MG Losartan Potassium 100 mg DAILY PO 11/04/24 10:00 11/06/24 10:08 100 MG Tamsulosin HCl 0.4 mg DAILY PO 11/04/24 10:00 11/06/24 10:09 0.4 MG Acetaminophen/ Hydrocodone Bitart 1 tab Q6HP PRN PO 11/04/24 12:30 11/06/24 22:37 1 TAB Amlodipine Besylate 10 mg DAILY PO 11/05/24 10:00 11/06/24 10:09 10 MG Gabapentin 400 mg TID PO 11/04/24 14:00 11/07/24 06:20 400 MG Chlordiazepoxide HCl 25 mg Q12HR PO 11/07/24 10:00 11/07/24 22:01 Chlordiazepoxide HCl 25 mg QAM PO 11/08/24 07:00 11/08/24 07:01 Folic Acid 1 mg DAILY PO 11/07/24 10:00 Multivitamins 1 tab DAILY PO 11/07/24 10:00 Magnesium Oxide 400 mg DAILY PO 11/07/24 10:00 Thiamine HCl 100 mg DAILY PO 11/07/24 10:00 Laboratory Results Laboratory Tests 11/07/24 05:31 Chemistry Test 11/07/24 05:31 Calcium Level 9.1 mg/dL (8.7-10.4) Coagulation Test 11/07/24 05:31 Prothrombin Time 11.0 sec (9.3-11.8) Prothrombin Time INR 1.04 (0.9-1.15) Activated Partial Thromboplast Time 48.6 SEC (24.5-34.5) H Urinalysis Test 11/04/24 21:15 Urine Color Light-yellow (Yellow) Urine Clarity Clear (Clear) Urine pH 6.0 (5.0-9.0) Urine Specific [place] 1.011 (1.001-1.035) Urine Protein Negative (Negative) Urine Ketones Negative (Negative) Urine Blood Trace /uL (Negative) H Urine Nitrite Negative (Negative) Urine Bilirubin Negative (Negative) Urine Urobilinogen Normal mg/dL (Negative) Urine Leukocyte Esterase Negative /uL (Negative) Urine RBC 5 /hpf (0 - 3) Urine Microscopic WBC 1 /HPF (0-3) Urine Squamous Epithelial Cells Few /hpf (<5) Urine Bacteria None seen /hpf (None Seen) Urine Creatinine 80.66 mg/dL (30.0-125.0) Urine Protein/Creatinine Ratio 0.10 Urine Sodium 100 mmol/L (40-220) Urine Glucose Normal mg/dL (Normal) Urine Total Protein 7.8 mg/dL (1-14) Microbiology Microbiology Date/Time Source Procedure Growth Status 11/04/24 21:30 Blood Blood Culture - Preliminary NO GROWTH AFTER 48 HOURS OF INCUBATION. Resulted 11/04/24 21:15 Nose MRSA Screen - Final Complete Labs and/or images reviewed: Labs reviewed by me, Image(s) reviewed by me Assessment/Plan Assessment/Plan Severe bilateral peripheral arterial disease scheduled for peripheral angiogram by Dr. Palmer on 11/07/2024 Chronic venous insufficiency Acute exacerbation of Chronic congestive heart failure Chronic bilateral lower leg edema possibly venous stasis, cardiology consult for Dr. Palmer appreciated, BNP normal Bilateral lower leg cellulitis: Clindamycin DVT ruled out Hypertension Hypercholesterolemia CKD Gout Hepatitis C Current alcohol abuse: Banana bag Librium Chronic current smoker: Counseling DVT ruled out Time Spent 65 minutes Patient is full code Patient lives with his mother Spoke to patient's daughter on the phone Dariel CUELLO who works down the [employer]. [phone]; time spent 25 minutes Plan discussed with: Patient My Orders Orders - CESAR TRIANA MD Procedure Category Date Status Time Folic Acid Tablet PHA 11/07/24 In Process 10:00 Magnesium Oxide PHA 11/07/24 In Process Tablet (Mag-Ox Tablet) 10:00 Thiamine Tab PHA 11/07/24 In Process 10:00 Multiple Vitamin PHA 11/07/24 In Process Tablet (Mvi Tab) 10:00 Date of Service: Nov 07, 2024 Billing Provider: CESAR TRIANA MD Common Visit Codes: [id number] CARE 30-74 MIN CESAR TRIANA MD Nov 07, 2024 08:22
[2024-11-07] MEDS: MULTIPLE VITAMIN TAB PO SCH (10:29)
[2024-11-07] MEDS: FOLIC ACID 1 MG TAB PO SCH (10:30)
[2024-11-07] MEDS: THIAMINE HCL 100 MG TAB PO SCH (10:30)
[2024-11-07] MEDS: MAGNESIUM OXIDE 400 MG TAB PO SCH (10:30)
[2024-11-07] MEDS: SODIUM CHL 0.9% 0 ML ONE (15:40)
[2024-11-07] MEDS: LIDOCAINE 2%HCL (LOCAL ANESTH.) INJ 20ML MDV ONE (15:40)
[2024-11-07] MEDS: ANGIOMAX 250 MG VIAL IV ONE (15:40)
[2024-11-07] MEDS: fentaNYL CITRATE 100 MCG/2 ML VL ONE (15:41)
[2024-11-07] MEDS: IODIXANOL 320MG/ML 100ML BTL IV ONE (15:41)
[2024-11-07] MEDS: MIDAZOLAM HCL 2MG/2ML 2ml VIAL (1mg/ml) ONE (15:42)
--- NOTE | 2024-11-07 16:20 | DVHOP2 ---
Operative Report - 2 Report Details Date: 11/07/24 Preop Diagnosis: Peripheral vascular disease Postop Diagnosis: Mild peripheral vascular disease Surgeon: Jo Ann Palmer MD Anesthesiologist: Conscious sedation Anesthesia: Mac, Local Consent: The patient was informed of the risks and benefits of the procedure. These include but are not limited to complications of anesthesia, postoperative infection, incomplete relief of symptoms, recurrence of symptoms, damage to blood vessels, nerves and tendons, deep venous thrombosis, pulmonary embolism and possible need for repeat surgery in the future. Complications: No complications Findings: Mild CAD Indications for Surgery: Claudication Name of Procedure Performed Angiographic evaluation and runoff of bilateral lower extremities, digital subtraction angiography of right lower extremity Procedure Details Procedure Details: Prior local anesthesia with 2% lidocaine to the left groin and full informed consent obtained the patient was prepped and draped in usual fashion followed by placement of a six [place] sheath into the left femoral artery through which a angiographic evaluation was performed in the left lower extremity with runoff to the level of the calf. We then placed a limb catheter into the femoral sheath and placed it into the origin of the right iliac and performed angiographic evaluation to the level of the knee. We then placed the rim catheter into the mid SFA and subsequently performed an angiographic evaluation with digital subtraction angiography of the arteries of the right lower extremity to the level of the ankle. No complications Hemodynamics: Aortic blood pressure was 130/70. Angiographic evaluation of the left common femoral with a runoff to the level of the superficial femoral artery profunda and popliteal artery including the trifurcation of the anterior and posterior tibial arteries are within normal limits. The mid calf to the left lower extremity distally was faintly evaluated but without any significant lesions noted. Angiographic evaluation of the proximal right iliac through the distal right lower extremity revealed a mild stenosis in the mid SFA of approximately 50-60%. The tibioperoneal trunk is normal. The anterior tibial artery is occluded distally with collateralization to the foot. There is a patent posterior tibial and peroneal artery to the level of the ankle and the plantar arch. Impression mild PVD involving the anterior tibial artery of the right lower extremity mild disease of the right SFA mild disease of the left SFA Recommendations medical therapy is warranted continue risk factor modification Condition Good Disposition Still a Patient Date of Service: Nov 07, 2024 Billing Provider: JO ANN PALMER Sr., MD Cardiology Common Codes: [id number] INP/OBS CARE (High) Peripheral Procedures Codes: [id number] W/IN SAME VESSEL JO ANN PALMER Sr., MD Nov 07, 2024 16:20
[2024-11-08 01:03] VITALS: BP 107/68; PULSE 96; RESP 18; TEMP 98.3; O2SAT 95
[2024-11-08 05:00] VITALS: BP 105/59; PULSE 87; RESP 18; TEMP 98.5; O2SAT 97
[2024-11-08 09:00] VITALS: BP 119/83; PULSE 80; RESP 18; TEMP 98.5; O2SAT 96
--- NOTE | 2024-11-08 10:04 | DVHPN2 ---
Reviewed: Care Plan, H&P, Labs, Medications, Previous Orders, Radiology Changes from previous H/P or p: No Changes Eyes: No Pain, No Vision change, No Conjunctivae inflammation, No Eyelid inflammation, No Other, No Redness ENT: No Ear pain, No Ear discharge, No Nose pain, No Nose discharge, No Nose congestion, No Mouth pain, No Mouth swelling, No Throat pain, No Throat swelling, No Other Cardiovascular: No Chest Pain, No Palpitations, No Orthopnea, No Paroxysmal Noc. Dyspnea; Edema; No Lt Headedness, No Other Respiratory: No Cough, No Dry, No Shortness of breath, No SOB with excertion, No Wheezing, No Hemoptysis, No Pleuritic Pain, No Sputum, No Other Gastrointestinal: No Nausea, No Vomiting, No Abdominal Pain, No Diarrhea, No Constipation, No Melena, No Hematochezia, No Other Genitourinary: No Dysuria, No Frequency, No Incontinence, No Hematuria, No Retention, No Other Musculoskeletal: No other, No neck pain, No shoulder pain, No arm pain, No back pain, No hand pain, No leg pain, No foot pain Skin: No Rash, No Lesions, No Jaundice, No Bruising, No Other Objective Vitals Vital Signs Date Time Temp Pulse Resp B/P (MAP) Pulse Ox O2 Delivery O2 Flow Rate FiO2 11/08/24 06:49 105/59 11/08/24 05:00 98.5 87 18 97 98.5 11/07/24 20:00 Room Air* 0 21 Intake/Output Intake and Output 11/08/24 07:00 Intake Total 800 ml Output Total 3050 ml Balance -2250 ml Intake Oral 700 ml IV Total 100 ml Output Urine Total 3050 ml Medications Current Medications Medications Dose Ordered Sig/Yoanna Route Start Time Stop Time Status Last Admin Dose Admin Acetaminophen 650 mg Q6HP PRN PO 11/03/24 15:45 11/04/24 06:16 650 MG Furosemide 40 mg BIDD IV 11/03/24 18:00 11/08/24 06:49 40 MG Pantoprazole Sodium 40 mg DAILY PO 11/04/24 10:00 11/07/24 10:29 40 MG Atorvastatin Calcium 40 mg DAILY PO 11/04/24 10:00 11/07/24 10:30 40 MG Cefazolin Sodium 50 ml @ 100 mls/hr Q6HR IV 11/03/24 18:00 11/08/24 06:48 100 MLS/HR Metoprolol Succinate 100 mg DAILY PO 11/04/24 10:00 11/07/24 10:31 100 MG Losartan Potassium 100 mg DAILY PO 11/04/24 10:00 11/07/24 10:31 100 MG Tamsulosin HCl 0.4 mg DAILY PO 11/04/24 10:00 11/07/24 10:30 0.4 MG Acetaminophen/ Hydrocodone Bitart 1 tab Q6HP PRN PO 11/04/24 12:30 11/08/24 06:47 1 TAB Amlodipine Besylate 10 mg DAILY PO 11/05/24 10:00 11/07/24 10:31 10 MG Gabapentin 400 mg TID PO 11/04/24 14:00 11/08/24 06:47 400 MG Folic Acid 1 mg DAILY PO 11/07/24 10:00 11/07/24 10:30 1 MG Multivitamins 1 tab DAILY PO 11/07/24 10:00 11/07/24 10:29 1 TAB Magnesium Oxide 400 mg DAILY PO 11/07/24 10:00 11/07/24 10:30 400 MG Thiamine HCl 100 mg DAILY PO 11/07/24 10:00 11/07/24 10:30 100 MG Aspirin 81 mg DAILY PO 11/08/24 10:00 Laboratory Results Laboratory Tests 11/07/24 05:31 Urinalysis Test 11/04/24 21:15 Urine Color Light-yellow (Yellow) Urine Clarity Clear (Clear) Urine pH 6.0 (5.0-9.0) Urine Specific [place] 1.011 (1.001-1.035) Urine Protein Negative (Negative) Urine Ketones Negative (Negative) Urine Blood Trace /uL (Negative) H Urine Nitrite Negative (Negative) Urine Bilirubin Negative (Negative) Urine Urobilinogen Normal mg/dL (Negative) Urine Leukocyte Esterase Negative /uL (Negative) Urine RBC 5 /hpf (0 - 3) Urine Microscopic WBC 1 /HPF (0-3) Urine Squamous Epithelial Cells Few /hpf (<5) Urine Bacteria None seen /hpf (None Seen) Urine Creatinine 80.66 mg/dL (30.0-125.0) Urine Protein/Creatinine Ratio 0.10 Urine Sodium 100 mmol/L (40-220) Urine Glucose Normal mg/dL (Normal) Urine Total Protein 7.8 mg/dL (1-14) Microbiology Microbiology Date/Time Source Procedure Growth Status 11/04/24 21:30 Blood Blood Culture - Preliminary NO GROWTH AFTER 72 HOURS OF INCUBATION. Resulted 11/04/24 21:15 Nose MRSA Screen - Final Complete Labs and/or images reviewed: Labs reviewed by me, Image(s) reviewed by me Assessment/Plan Assessment/Plan Status post peripheral angiogram by Dr. Palmer 11-07-24 Mild peripheral vascular disease right anterior tibial artery, mild peripheral vascular disease right SFA and left SFA, no intervention required Chronic venous insufficiency bilateral lower extremities Acute exacerbation of Chronic congestive heart failure Chronic bilateral lower leg edema possibly venous stasis, cardiology consult for Dr. Palmer appreciated, BNP normal Bilateral lower leg cellulitis: Clindamycin DVT ruled out Hypertension Hypercholesterolemia CKD Gout Hepatitis C Current alcohol abuse: Banana bag Librium Chronic current smoker: Counseling DVT ruled out Will check ABG on room air to see if he qualifies for home O2 Time Spent 65 minutes Patient is full code Patient lives with his mother Spoke to patient's daughter on the phone Dariel CUELLO who works down the [employer]. [phone]; time spent 25 minutes Plan discussed with: Patient Date of Service: Nov 08, 2024 Billing Provider: CESAR TRIANA MD Common Visit Codes: [id number] INP/OBS CARE(HIGH) CESAR TRIANA MD Nov 08, 2024 10:04
[2024-11-08 10:33] LABS: Base Excess 3.2 mmol/L (-2.0-3.0)
[2024-11-08 12:54] VITALS: BP 123/85; PULSE 89; RESP 18; TEMP 97.4; O2SAT 88
[2024-11-08 21:00] VITALS: BP 133/86; PULSE 98; RESP 18; TEMP 99; O2SAT 94
[2024-11-09] VITALS (8 sets, daily range): BP systolic 99–136; BP diastolic 61–94; PULSE 87–95; RESP 18–22; TEMP 37.3; O2SAT 93–98
[2024-11-09] MEDS ORDERED: FURO1TAB31 PO (09:27)
[2024-11-09] MEDS ORDERED: MAGN400C3 PO (09:27)
[2024-11-09] MEDS ORDERED: POTA-180 PO (09:27)
[2024-11-09] MEDS ORDERED: FOLI-119 PO (09:27)
[2024-11-09] MEDS ORDERED: THIA100T13 PO (09:27)
[2024-11-09] MEDS ORDERED: CLIN1CAP70 PO (09:27)
--- NOTE | 2024-11-09 09:30 | DVHPN2 ---
Reviewed: Care Plan, H&P, Labs, Medications, Previous Orders, Radiology Changes from previous H/P or p: No Changes Eyes: No Pain, No Vision change, No Conjunctivae inflammation, No Eyelid inflammation, No Other, No Redness ENT: No Ear pain, No Ear discharge, No Nose pain, No Nose discharge, No Nose congestion, No Mouth pain, No Mouth swelling, No Throat pain, No Throat swelling, No Other Cardiovascular: No Chest Pain, No Palpitations, No Orthopnea, No Paroxysmal Noc. Dyspnea; Edema; No Lt Headedness, No Other Respiratory: No Cough, No Dry, No Shortness of breath, No SOB with excertion, No Wheezing, No Hemoptysis, No Pleuritic Pain, No Sputum, No Other Gastrointestinal: No Nausea, No Vomiting, No Abdominal Pain, No Diarrhea, No Constipation, No Melena, No Hematochezia, No Other Genitourinary: No Dysuria, No Frequency, No Incontinence, No Hematuria, No Retention, No Other Musculoskeletal: No other, No neck pain, No shoulder pain, No arm pain, No back pain, No hand pain, No leg pain, No foot pain Skin: No Rash, No Lesions, No Jaundice, No Bruising, No Other Objective Vitals Vital Signs Date Time Temp Pulse Resp B/P (MAP) Pulse Ox O2 Delivery O2 Flow Rate FiO2 11/09/24 05:30 128/82 11/09/24 05:00 99.9 95 18 95 99.9 11/08/24 20:00 Room Air* 0 21 Intake/Output Intake and Output 11/09/24 07:00 Intake Total 950 ml Output Total 1850 ml Balance -900 ml Intake Oral 750 ml IV Total 200 ml Output Urine Total 1850 ml Medications Current Medications Medications Dose Ordered Sig/Yoanna Route Start Time Stop Time Status Last Admin Dose Admin Acetaminophen 650 mg Q6HP PRN PO 11/03/24 15:45 11/04/24 06:16 650 MG Furosemide 40 mg BIDD IV 11/03/24 18:00 11/09/24 05:30 40 MG Pantoprazole Sodium 40 mg DAILY PO 11/04/24 10:00 11/08/24 10:55 40 MG Atorvastatin Calcium 40 mg DAILY PO 11/04/24 10:00 11/08/24 10:57 40 MG Cefazolin Sodium 50 ml @ 100 mls/hr Q6HR IV 11/03/24 18:00 11/09/24 05:38 100 MLS/HR Metoprolol Succinate 100 mg DAILY PO 11/04/24 10:00 11/08/24 10:55 100 MG Losartan Potassium 100 mg DAILY PO 11/04/24 10:00 11/08/24 10:56 100 MG Tamsulosin HCl 0.4 mg DAILY PO 11/04/24 10:00 11/08/24 10:56 0.4 MG Acetaminophen/ Hydrocodone Bitart 1 tab Q6HP PRN PO 11/04/24 12:30 11/09/24 05:27 1 TAB Amlodipine Besylate 10 mg DAILY PO 11/05/24 10:00 11/08/24 10:56 10 MG Gabapentin 400 mg TID PO 11/04/24 14:00 11/09/24 05:28 400 MG Folic Acid 1 mg DAILY PO 11/07/24 10:00 11/08/24 10:54 1 MG Multivitamins 1 tab DAILY PO 11/07/24 10:00 11/08/24 10:53 1 TAB Magnesium Oxide 400 mg DAILY PO 11/07/24 10:00 11/08/24 10:54 400 MG Thiamine HCl 100 mg DAILY PO 11/07/24 10:00 11/08/24 10:54 100 MG Aspirin 81 mg DAILY PO 11/08/24 10:00 11/08/24 10:53 81 MG Laboratory Results Laboratory Tests 11/07/24 05:31 Urinalysis Test 11/04/24 21:15 Urine Color Light-yellow (Yellow) Urine Clarity Clear (Clear) Urine pH 6.0 (5.0-9.0) Urine Specific [place] 1.011 (1.001-1.035) Urine Protein Negative (Negative) Urine Ketones Negative (Negative) Urine Blood Trace /uL (Negative) H Urine Nitrite Negative (Negative) Urine Bilirubin Negative (Negative) Urine Urobilinogen Normal mg/dL (Negative) Urine Leukocyte Esterase Negative /uL (Negative) Urine RBC 5 /hpf (0 - 3) Urine Microscopic WBC 1 /HPF (0-3) Urine Squamous Epithelial Cells Few /hpf (<5) Urine Bacteria None seen /hpf (None Seen) Urine Creatinine 80.66 mg/dL (30.0-125.0) Urine Protein/Creatinine Ratio 0.10 Urine Sodium 100 mmol/L (40-220) Urine Glucose Normal mg/dL (Normal) Urine Total Protein 7.8 mg/dL (1-14) Blood Gas Results Test 11/08/24 10:26 Arterial Blood pH 7.419 (7.350-7.450) FiO2 % 21.0 Microbiology Microbiology Date/Time Source Procedure Growth Status 11/04/24 21:30 Blood Blood Culture - Preliminary NO GROWTH AFTER 72 HOURS OF INCUBATION. Resulted 11/04/24 21:15 Nose MRSA Screen - Final Complete Assessment/Plan Assessment/Plan Status post peripheral angiogram by Dr. Palmer 11-07-24 Mild peripheral vascular disease right anterior tibial artery, mild peripheral vascular disease right SFA and left SFA, no intervention required Chronic venous insufficiency bilateral lower extremities Acute exacerbation of Chronic congestive heart failure Chronic bilateral lower leg edema possibly venous stasis, cardiology consult for Dr. Palmer appreciated, BNP normal Bilateral lower leg cellulitis: Clindamycin DVT ruled out Hypertension Hypercholesterolemia CKD Gout Hepatitis C Current alcohol abuse: Banana bag Librium Chronic current smoker: Counseling DVT ruled out Left arm swelling and pain: Rule out DVT patient adamantly refusing ultrasound ABG on room air shows he qualified for home oxygen Time Spent 65 minutes Patient is full code Patient lives with his mother Spoke to patient's daughter on the phone Dariel CUELLO who works down the [employer]. [phone]; time spent 25 minutes JOJO Hatfield at bedside Plan discussed with: Patient My Orders Orders - CESAR TRIANA MD Procedure Category Date Status Time Abg W/ Co-Ox RT 11/08/24 Logged 10:03 Abg W/ Co-Ox RT 11/09/24 Logged 09:22 Date of Service: Nov 09, 2024 Billing Provider: CESAR TRIANA MD Common Visit Codes: [id number] INP/OBS CARE(HIGH) CESAR TRIANA MD Nov 09, 2024 09:30
--- NOTE | 2024-11-09 09:37 | DVHDS2 ---
Discharge Summary Date of Admission Nov 03, 2024 at 15:36 Date of Discharge: Nov 09, 2024 Admitting Diagnosis Swelling of bilateral legs Wounds: Peripheral angiogram Labs/Diagnostic Data: Laboratory Results Test 11/08/24 10:26 11/07/24 05:31 11/04/24 21:15 11/04/24 06:11 Blood Gas Specimen Type Arterial Blood Gas Sample Site Right radial Blood Gas Patient Temperature 37.0 Arterial Blood Date Drawn [id number] Arterial Blood pH 7.419 (7.350-7.450) Arterial Blood Partial Pressure CO2 44.5 mmHg (35.0-48.0) Arterial Blood Partial Pressure O2 46.2 mmHg (83.0-108.0) Arterial Blood HCO3 28.2 mmol/L (21.0-28.0) Arterial Blood Oxygen Saturation 80.3 % (94.0-98.0) Arterial Blood Base Excess 3.2 mmol/L (-2.0-3.0) Arterial Blood Oxyhemoglobin 79.6 % (94.0-98.0) Arterial Blood Carboxyhemoglobin 0.6 % (0.5-1.5) Arterial Blood Methemoglobin 0.3 % (0.0-1.5) Bertram Test Yes Blood Gas Total Hemoglobin 12.80 g/dL (13.5-17.5) Blood Gas Modality Room air FiO2 % 21.0 Blood Gas Critical Value Read Back Yes Blood Gas Notified Whom Maggie paz md Blood Gas Notified Time [id number] Blood Gas Notified By Carmen kinney White Blood Count 7.1 10^3/uL (4.4-10.8) Red Blood Count 4.44 10^6/uL (4.5-5.90) Hemoglobin 12.7 g/dL (13.5-17.5) Hematocrit 38.0 % (41.0-53.0) Mean Corpuscular Volume 85.4 fL (80.0-100.0) Mean Corpuscular Hemoglobin 28.5 pg (28.0-32.0) Mean Corpuscular Hemoglobin Concent 33.4 g/dL (32.0-36.0) Red Cell Distribution Width 16.2 % (11.8-14.3) Platelet Count 181 10^3/uL (140-450) Mean Platelet Volume 8.3 fL (6.9-10.8) Neutrophils (%) (Auto) 69.6 % (37.0-80.0) Lymphocytes (%) (Auto) 13.2 % (10.0-50.0) Monocytes (%) (Auto) 14.1 % (0.0-12.0) Eosinophils (%) (Auto) 2.6 % (0.0-7.0) Basophils (%) (Auto) 0.5 % (0.0-2.0) Neutrophils # (Auto) 4.9 10 ^3/uL (1.6-8.6) Lymphocytes # (Auto) 0.9 10 ^3/uL (0.4-5.4) Monocytes # (Auto) 1.0 10 ^3/uL (0-1.3) Eosinophils # (Auto) 0.2 10 ^3/uL (0-0.8) Basophils # (Auto) 0 10 ^3/uL (0-0.2) Nucleated Red Blood Cells 0.1 % Prothrombin Time 11.0 sec (9.3-11.8) Prothrombin Time INR 1.04 (0.9-1.15) Activated Partial Thromboplast Time 48.6 SEC (24.5-34.5) Sodium Level 138 mmol/L (136-145) Potassium Level 3.4 mmol/L (3.5-5.1) Chloride Level 99 mmol/L (98-107) Carbon Dioxide Level 28 mmol/L (20-31) Anion Gap 11 (5-15) Blood Urea Nitrogen 13 mg/dL (9-23) Creatinine 1.43 mg/dL (0.700-1.30) Glomerular Filtration Rate Calc 52 mL/min (>90) BUN/Creatinine Ratio 9.1 (10.0-20.0) Serum Glucose 108 mg/dL (74-106) Calcium Level 9.1 mg/dL (8.7-10.4) Urine Color Light-yellow (Yellow) Urine Clarity Clear (Clear) Urine pH 6.0 (5.0-9.0) Urine Specific [place] 1.011 (1.001-1.035) Urine Protein Negative (Negative) Urine Ketones Negative (Negative) Urine Blood Trace /uL (Negative) Urine Nitrite Negative (Negative) Urine Bilirubin Negative (Negative) Urine Urobilinogen Normal mg/dL (Negative) Urine Leukocyte Esterase Negative /uL (Negative) Urine RBC 5 /hpf (0 - 3) Urine Microscopic WBC 1 /HPF (0-3) Urine Squamous Epithelial Cells Few /hpf (<5) Urine Bacteria None seen /hpf (None Seen) Urine Creatinine 80.66 mg/dL (30.0-125.0) Urine Protein/Creatinine Ratio 0.10 Urine Sodium 100 mmol/L (40-220) Urine Glucose Normal mg/dL (Normal) Urine Total Protein 7.8 mg/dL (1-14) Urine Opiates Screen Neg (NEGATIVE) Urine Fentanyl Screen Neg (NEGATIVE) Urine Barbiturates Screen Neg (NEGATIVE) Urine Phencyclidine Screen Neg (NEGATIVE) Urine Amphetamines Screen Neg (NEGATIVE) Urine Benzodiazepines Screen Neg (NEGATIVE) Urine Cocaine Screen Neg (NEGATIVE) Urine Cannabinoids Screen Neg (NEGATIVE) Total Bilirubin 0.7 mg/dL (0.2-1.0) Aspartate Amino Transferase (AST) 27 U/L (13-40) Alanine Aminotransferase (ALT) 16 U/L (7-40) Alkaline Phosphatase 67 U/L (46-116) Total Protein 8.1 g/dL (5.7-8.2) Albumin 4.3 g/dL (3.2-4.8) Thyroid Stimulating Hormone (TSH) 2.95 uIU/mL (0.55-4.78) Test 11/03/24 17:44 11/03/24 10:17 Direct Bilirubin 0.6 mg/dL (<0.3) Hemoglobin A1c 5.7 % A1C (<5.7) Troponin I High Sensitivity < 3 ng/L (</=54) B-Type Natriuretic Peptide 3.85 pg/mL (0-100) Triglycerides Level 66 mg/dL (< 150) Cholesterol Level 131 mg/dL (< 200) LDL Cholesterol 32 mg/dL (< 100) HDL Cholesterol 82 mg/dL (40-59) Other Laboratory Tests 11/07/24 05:31 Brief Hx & Hospital Course: 69-year-old male with a multiple medical problems including hypertension hypercholesterolemia CKD gout hep C chronic alcohol abuse chronic current smoker congestive heart failure chronic venous insufficiency came in complaining of pain and swelling of the bilateral lower extremities patient was found to have moderate cellulitis treated with the antibiotics DVT was ruled out patient has had angiogram by Dr. Purcell 11/07/2024 with the findings of mild peripheral vascular disease involving right anterior tibial right SFA and left SFA. No intervention was required. Blood cultures were negative. Patient has been noncompliant throughout the stay and insistent to go home. 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 General condition stable but poor at the time of discharge Consults/Reason for consult Cardiology Dr. Palmer Operations or Procedures Venous ultrasound Arterial ultrasound Condition at Discharge: Good Final Diagnosis/Problems List Status post peripheral angiogram by Dr. Palmer 11-07-24 Mild peripheral vascular disease right anterior tibial artery, mild peripheral vascular disease right SFA and left SFA, no intervention required Chronic venous insufficiency bilateral lower extremities Acute exacerbation of Chronic congestive heart failure Chronic bilateral lower leg edema possibly venous stasis, cardiology consult for Dr. Palmer appreciated, BNP normal Bilateral lower leg cellulitis: Clindamycin DVT ruled out Hypertension Hypercholesterolemia CKD Gout Hepatitis C Current alcohol abuse: Banana bag Librium Chronic current smoker: Counseling DVT ruled out Left arm swelling and pain: Rule out DVT patient adamantly refusing ultrasound ABG on room air shows he qualified for home oxygen Discharge Disposition: Home Discharge Instruct/Medications Diet: Cardiac 2g Na,low cholest Activity: No Restrictions, As Tolerated Follow Up/Referral: Follow up with the primary Dr in one week Follow up with the assistant construction superintendent Dr Palmer in two weeks Resume all previous home meds Medications: Sent to the pharmacy Reviewed home medications Scheduled Allopurinol (Allopurinol), 100 MG PO DAILY Amlodipine Besylate (Amlodipine Besylate), 1 TAB PO DAILY, (Reported) Atorvastatin Calcium (Atorvastatin Calcium), 1 TAB PO DAILY, (Reported) Cholecalciferol (Vitamin D3), 1 CAP PO DAILY, (Reported) Clindamycin Hcl (Clindamycin Hcl), 1 CAP PO TID Folic Acid (Folic Acid), 1 MG PO DAILY Furosemide (Lasix), 40 MG PO BID Gabapentin (Gabapentin), 1 CAP PO TID, (Reported) Losartan Potassium (Losartan Potassium), 1 TAB PO DAILY, (Reported) Magnesium Oxide (Mg Supplement (Magnesium), 400 MG PO DAILY Metoprolol Succinate (Metoprolol Succinate Er), 1 TAB PO DAILY, (Reported) Potassium Chloride (Potassium Chloride ER), 20 MEQ PO DAILY Tamsulosin Hcl (Tamsulosin Hcl), 1 CAP PO DAILY, (Reported) Thiamine HCl (Thiamine Hydrochloride), 100 MG PO DAILY Miscellaneous Medications Oxycodone W/ Acetaminophen (Oxycodone/Acetaminophen 10-300 mg), (Reported) Discharge Statement: "Patient was advised to return to the ER or call 911 if any headaches, dizziness, shortness of breath, chest pain, abdominal pain, bleeding, fevers, or worsening of medical condition. Patient was counseled about treatment plan, medications, possible side effects, patientverbalized understanding. All questions were answered to the best of my ability. This discharge took greater then 30 minutes in planning, reviewing documentation, counseling the patient, and discussing with other team members." ASSESSMENT ASSESSMENT Hospital Course Marginal improvement Assessment Status post peripheral angiogram by Dr. Palmer 11-07-24 Mild peripheral vascular disease right anterior tibial artery, mild peripheral vascular disease right SFA and left SFA, no intervention required Chronic venous insufficiency bilateral lower extremities Acute exacerbation of Chronic congestive heart failure Chronic bilateral lower leg edema possibly venous stasis, cardiology consult for Dr. Palmer appreciated, BNP normal Bilateral lower leg cellulitis: Clindamycin DVT ruled out Hypertension Hypercholesterolemia CKD Gout Hepatitis C Current alcohol abuse: Banana bag Librium Chronic current smoker: Counseling DVT ruled out Left arm swelling and pain: Rule out DVT patient adamantly refusing ultrasound ABG on room air shows he qualified for home oxygen Date of Service: Nov 09, 2024 Billing Provider: CESAR PAZ MD Common Visit Codes: [id number] DISCH DAY >30min CESAR PAZ MD Nov 09, 2024 09:37
--- NOTE | 2024-11-09 14:25 | DVH ---
LEFT Upper Extremity Venous Duplex Clinical History: Rule out DVT Comparison: US RT LOWER DVT on DOS: 11/03/24, BUDVT on DOS: 07/25/21, BI LAT UPPER DVT on DOS: 07/25/21, R WRI on DOS: 07/19/21, BLDVT on DOS: 07/19/21 Findings: Duplex Doppler evaluation of the venous system of the LEFT lower neck and upper extremity including c olor Doppler and spectral/pulsed waveform analysis was performed. The internal jugular vein demonstrates appropriate compressibility and waveform variability. The subclavian vein is patent on color Doppler evaluation without intraluminal thrombus and demonstra massiel waveform variability. The visualized portion of the brachiocephalic vein is patent on color Doppler evaluation without intr aluminal thrombus and demonstrates waveform variability. The axillary vein demonstrates appropriate compressibility and waveform variability. The brachial veins demonstrate appropriate compressibility and patency on Doppler evaluation. The basilic vein demonstrates appropriate compressibility and patency on Doppler evaluation. The cephalic vein demonstrates thrombus is present.. Impression: 1. No evidence of DVT. 2. Cephalic vein superficial phlebitis 3. If clinical concern/symptoms persist or worsen, short-interval follow-up study is suggested.
[2024-11-10] VITALS (8 sets, daily range): BP systolic 91–143; BP diastolic 56–87; PULSE 87–101; RESP 22–24; TEMP 98.6–100; O2SAT 92–94
[2024-11-10] MEDS ORDERED: ALL100T PO (09:22)
--- NOTE | 2024-11-10 09:25 | DVHPN2 ---
Reviewed: Care Plan, H&P, Labs, Medications, Previous Orders, Radiology Changes from previous H/P or p: No Changes Eyes: No Pain, No Vision change, No Conjunctivae inflammation, No Eyelid inflammation, No Other, No Redness ENT: No Ear pain, No Ear discharge, No Nose pain, No Nose discharge, No Nose congestion, No Mouth pain, No Mouth swelling, No Throat pain, No Throat swelling, No Other Cardiovascular: No Chest Pain, No Palpitations, No Orthopnea, No Paroxysmal Noc. Dyspnea; Edema; No Lt Headedness, No Other Respiratory: No Cough, No Dry, No Shortness of breath, No SOB with excertion, No Wheezing, No Hemoptysis, No Pleuritic Pain, No Sputum, No Other Gastrointestinal: No Nausea, No Vomiting, No Abdominal Pain, No Diarrhea, No Constipation, No Melena, No Hematochezia, No Other Genitourinary: No Dysuria, No Frequency, No Incontinence, No Hematuria, No Retention, No Other Musculoskeletal: No other, No neck pain, No shoulder pain, No arm pain, No back pain, No hand pain, No leg pain, No foot pain Skin: No Rash, No Lesions, No Jaundice, No Bruising, No Other Objective Vitals Vital Signs Date Time Temp Pulse Resp B/P (MAP) Pulse Ox O2 Delivery O2 Flow Rate FiO2 11/10/24 09:00 98.8 101 22 124/73 (90) 94 98.8 11/09/24 20:00 Room Air* 0 21 Intake/Output Intake and Output 11/10/24 07:00 Intake Total 1970 ml Balance 1970 ml Intake Oral 1970 ml # Voids 8 Medications Current Medications Medications Dose Ordered Sig/Yoanna Route Start Time Stop Time Status Last Admin Dose Admin Acetaminophen 650 mg Q6HP PRN PO 11/03/24 15:45 11/04/24 06:16 650 MG Furosemide 40 mg BIDD IV 11/03/24 18:00 11/10/24 05:24 40 MG Pantoprazole Sodium 40 mg DAILY PO 11/04/24 10:00 11/09/24 09:56 40 MG Atorvastatin Calcium 40 mg DAILY PO 11/04/24 10:00 11/09/24 09:56 40 MG Cefazolin Sodium 50 ml @ 100 mls/hr Q6HR IV 11/03/24 18:00 11/10/24 05:26 100 MLS/HR Metoprolol Succinate 100 mg DAILY PO 11/04/24 10:00 11/09/24 09:55 100 MG Losartan Potassium 100 mg DAILY PO 11/04/24 10:00 11/09/24 09:55 100 MG Tamsulosin HCl 0.4 mg DAILY PO 11/04/24 10:00 11/09/24 09:56 0.4 MG Acetaminophen/ Hydrocodone Bitart 1 tab Q6HP PRN PO 11/04/24 12:30 11/09/24 12:07 1 TAB Amlodipine Besylate 10 mg DAILY PO 11/05/24 10:00 11/09/24 09:53 10 MG Gabapentin 400 mg TID PO 11/04/24 14:00 11/09/24 12:56 400 MG Folic Acid 1 mg DAILY PO 11/07/24 10:00 11/09/24 09:54 1 MG Multivitamins 1 tab DAILY PO 11/07/24 10:00 11/09/24 09:54 1 TAB Magnesium Oxide 400 mg DAILY PO 11/07/24 10:00 11/09/24 09:54 400 MG Thiamine HCl 100 mg DAILY PO 11/07/24 10:00 11/09/24 09:53 100 MG Aspirin 81 mg DAILY PO 11/08/24 10:00 11/09/24 09:56 81 MG Laboratory Results Laboratory Tests 11/07/24 05:31 Urinalysis Test 11/04/24 21:15 Urine Color Light-yellow (Yellow) Urine Clarity Clear (Clear) Urine pH 6.0 (5.0-9.0) Urine Specific [place] 1.011 (1.001-1.035) Urine Protein Negative (Negative) Urine Ketones Negative (Negative) Urine Blood Trace /uL (Negative) H Urine Nitrite Negative (Negative) Urine Bilirubin Negative (Negative) Urine Urobilinogen Normal mg/dL (Negative) Urine Leukocyte Esterase Negative /uL (Negative) Urine RBC 5 /hpf (0 - 3) Urine Microscopic WBC 1 /HPF (0-3) Urine Squamous Epithelial Cells Few /hpf (<5) Urine Bacteria None seen /hpf (None Seen) Urine Creatinine 80.66 mg/dL (30.0-125.0) Urine Protein/Creatinine Ratio 0.10 Urine Sodium 100 mmol/L (40-220) Urine Glucose Normal mg/dL (Normal) Urine Total Protein 7.8 mg/dL (1-14) Microbiology Microbiology Date/Time Source Procedure Growth Status 11/04/24 21:30 Blood Blood Culture - Final NO GROWTH AFTER 5 DAYS OF INCUBATION. Complete 11/04/24 21:15 Nose MRSA Screen - Final Complete Labs and/or images reviewed: Labs reviewed by me, Image(s) reviewed by me Assessment/Plan Assessment/Plan Status post peripheral angiogram by Dr. Palmer 11-07-24 Mild peripheral vascular disease right anterior tibial artery, mild peripheral vascular disease right SFA and left SFA, no intervention required Chronic venous insufficiency bilateral lower extremities Acute exacerbation of Chronic congestive heart failure Chronic bilateral lower leg edema possibly venous stasis, cardiology consult for Dr. Palmer appreciated, BNP normal Bilateral lower leg cellulitis: Clindamycin DVT ruled out Hypertension Hypercholesterolemia CKD Gout Hepatitis C Current alcohol abuse: Banana bag Librium Chronic current smoker: Counseling DVT ruled out Left arm swelling and pain: Rule out DVT patient adamantly refusing ultrasound ABG on room air shows he qualified for home oxygen Time Spent 65 minutes Patient is full code Patient lives with his mother Spoke to patient's daughter on the phone Dariel CUELLO who works down the [employer]. [phone]; time spent 25 minutes RN Barak at bedside, Daughter Dariel at bedside and discussed with the patient diagnosis prognosis and management Patient does not want to go to prison facility for rehab, agreed to go home on home health for physical therapy safety evaluation and medication management. Discharged home on home health Plan discussed with: Patient My Orders Orders - CESAR TRIANA MD Procedure Category Date Status Time * Tank Systems Maintainer CONS 11/09/24 Transmitted Consult Lt Upper Dvt US 11/09/24 Resulted 13:00 Pt Request For Service PT 11/09/24 Logged 16:36 Discharge DISCHARGE 11/10/24 Transmitted 09:16 * Tank Systems Maintainer CONS 11/10/24 Transmitted Consult Date of Service: Nov 10, 2024 Billing Provider: CESAR TRIANA MD Common Visit Codes: [id number] INP/OBS CARE(HIGH) CESAR TRIANA MD Nov 10, 2024 09:24
[2024-11-11 00:43] VITALS: BP 111/73; PULSE 97; RESP 24; TEMP 98.9; O2SAT 91
[2024-11-11 05:00] VITALS: BP 96/66; PULSE 94; RESP 22; TEMP 98.8; O2SAT 93
[2024-11-11 08:00] VITALS: PULSE 96; RESP 19; O2SAT 94
--- NOTE | 2024-11-11 08:43 | DVHPN2 ---
Reviewed: Care Plan, H&P, Labs, Medications, Previous Orders, Radiology Changes from previous H/P or p: No Changes Eyes: No Pain, No Vision change, No Conjunctivae inflammation, No Eyelid inflammation, No Other, No Redness ENT: No Ear pain, No Ear discharge, No Nose pain, No Nose discharge, No Nose congestion, No Mouth pain, No Mouth swelling, No Throat pain, No Throat swelling, No Other Cardiovascular: No Chest Pain, No Palpitations, No Orthopnea, No Paroxysmal Noc. Dyspnea; Edema; No Lt Headedness, No Other Respiratory: No Cough, No Dry, No Shortness of breath, No SOB with excertion, No Wheezing, No Hemoptysis, No Pleuritic Pain, No Sputum, No Other Gastrointestinal: No Nausea, No Vomiting, No Abdominal Pain, No Diarrhea, No Constipation, No Melena, No Hematochezia, No Other Genitourinary: No Dysuria, No Frequency, No Incontinence, No Hematuria, No Retention, No Other Musculoskeletal: No other, No neck pain, No shoulder pain, No arm pain, No back pain, No hand pain, No leg pain, No foot pain Skin: No Rash, No Lesions, No Jaundice, No Bruising, No Other Objective Vitals Vital Signs Date Time Temp Pulse Resp B/P (MAP) Pulse Ox O2 Delivery O2 Flow Rate FiO2 11/11/24 05:32 96/66 11/11/24 05:00 98.8 94 22 93 98.8 11/10/24 20:10 Nasal Cannula* 3 32 Intake/Output Intake and Output 11/11/24 07:00 Intake Total 830 ml Output Total 875 ml Balance -45 ml Intake Oral 830 ml Output Urine Total 875 ml # Voids 3 Medications Current Medications Medications Dose Ordered Sig/Yoanna Route Start Time Stop Time Status Last Admin Dose Admin Acetaminophen 650 mg Q6HP PRN PO 11/03/24 15:45 11/04/24 06:16 650 MG Furosemide 40 mg BIDD IV 11/03/24 18:00 11/10/24 05:24 40 MG Pantoprazole Sodium 40 mg DAILY PO 11/04/24 10:00 11/10/24 10:12 40 MG Atorvastatin Calcium 40 mg DAILY PO 11/04/24 10:00 11/10/24 10:12 40 MG Cefazolin Sodium 50 ml @ 100 mls/hr Q6HR IV 11/03/24 18:00 11/11/24 05:30 100 MLS/HR Metoprolol Succinate 100 mg DAILY PO 11/04/24 10:00 11/10/24 10:12 100 MG Losartan Potassium 100 mg DAILY PO 11/04/24 10:00 11/10/24 10:13 100 MG Tamsulosin HCl 0.4 mg DAILY PO 11/04/24 10:00 11/10/24 10:13 0.4 MG Acetaminophen/ Hydrocodone Bitart 1 tab Q6HP PRN PO 11/04/24 12:30 11/10/24 10:21 1 TAB Amlodipine Besylate 10 mg DAILY PO 11/05/24 10:00 11/10/24 10:14 10 MG Folic Acid 1 mg DAILY PO 11/07/24 10:00 11/10/24 10:14 1 MG Multivitamins 1 tab DAILY PO 11/07/24 10:00 11/10/24 10:14 1 TAB Magnesium Oxide 400 mg DAILY PO 11/07/24 10:00 11/10/24 10:14 400 MG Thiamine HCl 100 mg DAILY PO 11/07/24 10:00 11/10/24 10:14 100 MG Aspirin 81 mg DAILY PO 11/08/24 10:00 11/10/24 10:12 81 MG Gabapentin 400 mg HS PO 11/11/24 22:00 Laboratory Results Laboratory Tests 11/07/24 05:31 Urinalysis Test 11/04/24 21:15 Urine Color Light-yellow (Yellow) Urine Clarity Clear (Clear) Urine pH 6.0 (5.0-9.0) Urine Specific [place] 1.011 (1.001-1.035) Urine Protein Negative (Negative) Urine Ketones Negative (Negative) Urine Blood Trace /uL (Negative) H Urine Nitrite Negative (Negative) Urine Bilirubin Negative (Negative) Urine Urobilinogen Normal mg/dL (Negative) Urine Leukocyte Esterase Negative /uL (Negative) Urine RBC 5 /hpf (0 - 3) Urine Microscopic WBC 1 /HPF (0-3) Urine Squamous Epithelial Cells Few /hpf (<5) Urine Bacteria None seen /hpf (None Seen) Urine Creatinine 80.66 mg/dL (30.0-125.0) Urine Protein/Creatinine Ratio 0.10 Urine Sodium 100 mmol/L (40-220) Urine Glucose Normal mg/dL (Normal) Urine Total Protein 7.8 mg/dL (1-14) Microbiology Microbiology Date/Time Source Procedure Growth Status 11/04/24 21:30 Blood Blood Culture - Final NO GROWTH AFTER 5 DAYS OF INCUBATION. Complete 11/04/24 21:15 Nose MRSA Screen - Final Complete Labs and/or images reviewed: Labs reviewed by me, Image(s) reviewed by me Assessment/Plan Assessment/Plan Status post peripheral angiogram by Dr. Palmer 11-07-24 Mild peripheral vascular disease right anterior tibial artery, mild peripheral vascular disease right SFA and left SFA, no intervention required Chronic venous insufficiency bilateral lower extremities Acute exacerbation of Chronic congestive heart failure Chronic bilateral lower leg edema possibly venous stasis, cardiology consult for Dr. Palmer appreciated, BNP normal Bilateral lower leg cellulitis: Clindamycin DVT ruled out Hypertension Hypercholesterolemia CKD Gout Hepatitis C Current alcohol abuse: Banana bag Librium Chronic current smoker: Counseling DVT ruled out Left arm swelling and pain: Rule out DVT patient adamantly refusing ultrasound ABG on room air shows he qualified for home oxygen Time Spent 65 minutes Patient is full code Patient lives with his mother Spoke to patient's daughter on the phone Dariel GUARD CHIEF who works down the [employer]. [phone]; time spent 25 minutes RN Barak at bedside, Daughter Dariel at bedside and discussed with the patient diagnosis prognosis and management Patient does not want to go to nursing home facility for rehab, agreed to go home on home health for physical therapy safety evaluation and medication management. Discharged home on home health Daughter at bedside Daughter's request order placed for DME equipment: Wheelchair walker bedside commode and hospital bed and oxygen Plan discussed with: Patient My Orders Orders - CESAR TRIANA MD Procedure Category Date Status Time Dme: Commode DME 11/10/24 Transmitted 11:47 Dme: Hospital Bed DME 11/10/24 Transmitted 11:47 Dme:Wheelchair (Cg DME 11/10/24 Transmitted Will Move) 11:47 Refer To Home Health THERESA 11/10/24 In Process 12:02 * Cryptographic Machine Operator CONS 11/10/24 Transmitted Consult Discharge DISCHARGE 11/10/24 Transmitted 14:26 * Cryptographic Machine Operator CONS 11/11/24 Transmitted Consult * Cryptographic Machine Operator CONS 11/11/24 Transmitted Consult Gabapentin Capsule PHA 11/11/24 In Process (Neurontin Capsule) 22:00 Date of Service: Nov 11, 2024 Billing Provider: CESAR TRIANA MD Common Visit Codes: [id number] INP/OBS CARE(HIGH) CESAR TRIANA MD Nov 11, 2024 08:43
--- NOTE | 2024-11-11 08:47 | DVHPN2 ---
Reviewed: Care Plan, H&P, Labs, Medications, Previous Orders, Radiology Changes from previous H/P or p: No Changes Eyes: No Pain, No Vision change, No Conjunctivae inflammation, No Eyelid inflammation, No Other, No Redness ENT: No Ear pain, No Ear discharge, No Nose pain, No Nose discharge, No Nose congestion, No Mouth pain, No Mouth swelling, No Throat pain, No Throat swelling, No Other Cardiovascular: No Chest Pain, No Palpitations, No Orthopnea, No Paroxysmal Noc. Dyspnea; Edema; No Lt Headedness, No Other Respiratory: No Cough, No Dry, No Shortness of breath, No SOB with excertion, No Wheezing, No Hemoptysis, No Pleuritic Pain, No Sputum, No Other Gastrointestinal: No Nausea, No Vomiting, No Abdominal Pain, No Diarrhea, No Constipation, No Melena, No Hematochezia, No Other Genitourinary: No Dysuria, No Frequency, No Incontinence, No Hematuria, No Retention, No Other Musculoskeletal: No other, No neck pain, No shoulder pain, No arm pain, No back pain, No hand pain, No leg pain, No foot pain Skin: No Rash, No Lesions, No Jaundice, No Bruising, No Other Objective Vitals Vital Signs Date Time Temp Pulse Resp B/P (MAP) Pulse Ox O2 Delivery O2 Flow Rate FiO2 11/11/24 05:32 96/66 11/11/24 05:00 98.8 94 22 93 98.8 11/10/24 20:10 Nasal Cannula* 3 32 Intake/Output Intake and Output 11/11/24 07:00 Intake Total 830 ml Output Total 875 ml Balance -45 ml Intake Oral 830 ml Output Urine Total 875 ml # Voids 3 Medications Current Medications Medications Dose Ordered Sig/Yoanna Route Start Time Stop Time Status Last Admin Dose Admin Acetaminophen 650 mg Q6HP PRN PO 11/03/24 15:45 11/04/24 06:16 650 MG Furosemide 40 mg BIDD IV 11/03/24 18:00 11/10/24 05:24 40 MG Pantoprazole Sodium 40 mg DAILY PO 11/04/24 10:00 11/10/24 10:12 40 MG Atorvastatin Calcium 40 mg DAILY PO 11/04/24 10:00 11/10/24 10:12 40 MG Cefazolin Sodium 50 ml @ 100 mls/hr Q6HR IV 11/03/24 18:00 11/11/24 05:30 100 MLS/HR Metoprolol Succinate 100 mg DAILY PO 11/04/24 10:00 11/10/24 10:12 100 MG Losartan Potassium 100 mg DAILY PO 11/04/24 10:00 11/10/24 10:13 100 MG Tamsulosin HCl 0.4 mg DAILY PO 11/04/24 10:00 11/10/24 10:13 0.4 MG Acetaminophen/ Hydrocodone Bitart 1 tab Q6HP PRN PO 11/04/24 12:30 11/10/24 10:21 1 TAB Amlodipine Besylate 10 mg DAILY PO 11/05/24 10:00 11/10/24 10:14 10 MG Folic Acid 1 mg DAILY PO 11/07/24 10:00 11/10/24 10:14 1 MG Multivitamins 1 tab DAILY PO 11/07/24 10:00 11/10/24 10:14 1 TAB Magnesium Oxide 400 mg DAILY PO 11/07/24 10:00 11/10/24 10:14 400 MG Thiamine HCl 100 mg DAILY PO 11/07/24 10:00 11/10/24 10:14 100 MG Aspirin 81 mg DAILY PO 11/08/24 10:00 11/10/24 10:12 81 MG Gabapentin 400 mg HS PO 11/11/24 22:00 Laboratory Results Laboratory Tests 11/07/24 05:31 Urinalysis Test 11/04/24 21:15 Urine Color Light-yellow (Yellow) Urine Clarity Clear (Clear) Urine pH 6.0 (5.0-9.0) Urine Specific [place] 1.011 (1.001-1.035) Urine Protein Negative (Negative) Urine Ketones Negative (Negative) Urine Blood Trace /uL (Negative) H Urine Nitrite Negative (Negative) Urine Bilirubin Negative (Negative) Urine Urobilinogen Normal mg/dL (Negative) Urine Leukocyte Esterase Negative /uL (Negative) Urine RBC 5 /hpf (0 - 3) Urine Microscopic WBC 1 /HPF (0-3) Urine Squamous Epithelial Cells Few /hpf (<5) Urine Bacteria None seen /hpf (None Seen) Urine Creatinine 80.66 mg/dL (30.0-125.0) Urine Protein/Creatinine Ratio 0.10 Urine Sodium 100 mmol/L (40-220) Urine Glucose Normal mg/dL (Normal) Urine Total Protein 7.8 mg/dL (1-14) Microbiology Microbiology Date/Time Source Procedure Growth Status 11/04/24 21:30 Blood Blood Culture - Final NO GROWTH AFTER 5 DAYS OF INCUBATION. Complete 11/04/24 21:15 Nose MRSA Screen - Final Complete Labs and/or images reviewed: Labs reviewed by me, Image(s) reviewed by me Assessment/Plan Assessment/Plan Status post peripheral angiogram by Dr. Palmer 11-07-24 Mild peripheral vascular disease right anterior tibial artery, mild peripheral vascular disease right SFA and left SFA, no intervention required Chronic venous insufficiency bilateral lower extremities Acute exacerbation of Chronic congestive heart failure Chronic bilateral lower leg edema possibly venous stasis, cardiology consult for Dr. Palmer appreciated, BNP normal Bilateral lower leg cellulitis: Clindamycin DVT ruled out Hypertension Hypercholesterolemia CKD Gout Hepatitis C Current alcohol abuse: Banana bag Librium Chronic current smoker: Counseling DVT ruled out Left arm swelling and pain: Rule out DVT patient adamantly refusing ultrasound ABG on room air shows he qualified for home oxygen Time Spent 65 minutes Patient is full code Patient lives with his mother Spoke to patient's daughter on the phone Dariel NEEDLE LEADER who works down the [employer]. [phone]; time spent 25 minutes RN Barak at bedside, Daughter Dariel at bedside and discussed with the patient diagnosis prognosis and management Patient does not want to go to intermediate facility for rehab, agreed to go home on home health for physical therapy safety evaluation and medication management. Discharged home on home health Daughter at bedside Daughter's request order placed for DME equipment: Wheelchair walker bedside commode and hospital bed and oxygen Plan discussed with: Patient, Daughter My Orders Orders - CESAR TRIANA MD Procedure Category Date Status Time Dme: Commode DME 11/10/24 Transmitted 11:47 Dme: Hospital Bed DME 11/10/24 Transmitted 11:47 Dme:Wheelchair (Cg DME 11/10/24 Transmitted Will Move) 11:47 Refer To Home Health THERESA 11/10/24 In Process 12:02 * Educational Psychologist CONS 11/10/24 Transmitted Consult Discharge DISCHARGE 11/10/24 Transmitted 14:26 * Educational Psychologist CONS 11/11/24 Transmitted Consult * Educational Psychologist CONS 11/11/24 Transmitted Consult Gabapentin Capsule PHA 11/11/24 In Process (Neurontin Capsule) 22:00 Date of Service: Nov 11, 2024 Billing Provider: CESAR TRIANA MD Common Visit Codes: [id number] INP/OBS CARE(HIGH) ECSAR TRIANA MD Nov 11, 2024 08:47
[2024-11-11 09:00] VITALS: BP 90/56; PULSE 96; RESP 19; TEMP 99.7; O2SAT 94
[2024-11-11 13:00] VITALS: BP 124/74; PULSE 95; RESP 19; TEMP 98.8; O2SAT 96
[2024-11-11] MEDS ORDERED: GABAPENTIN 400 MG CAP PO SCH (22:00)
== END 2024-11-11 16:45 | disposition home health service (06) | DRG 299 ==
LOC: ER 09:04 → OVERFLOW 15:36 → CENTRAL 23:00
PROVIDERS: ADMIT Family Medicine; ATTEND Family Medicine
PROC: B41CYZZ Fluoroscopy of Pelvic Arteries using Other Contrast (ICD-10-PCS; principal; 2024-11-07)
PROC: B41GYZZ Fluoroscopy of Left Lower Extremity Arteries using Other Contrast (ICD-10-PCS; 2024-11-07)
PROC: B41FYZZ Fluoroscopy of Right Lower Extremity Arteries using Other Contrast (ICD-10-PCS; 2024-11-07)
DX: I73.9 Peripheral vascular disease, unspecified (principal); I50.41 Acute combined systolic (congestive) and diastolic (congestive) heart failure; I13.0 Hypertensive heart and chronic kidney disease with heart failure and stage 1 through stage 4 chronic kidney disease, or unspecified chronic kidney disease; L03.116 Cellulitis of left lower limb; L03.115 Cellulitis of right lower limb; I87.8 Other specified disorders of veins; M10.9 Gout, unspecified; R73.03 Prediabetes; N40.0 Benign prostatic hyperplasia without lower urinary tract symptoms; E66.9 Obesity, unspecified; E78.00 Pure hypercholesterolemia, unspecified; N18.9 Chronic kidney disease, unspecified; B19.20 Unspecified viral hepatitis C without hepatic coma; F10.10 Alcohol abuse, uncomplicated; F12.90 Cannabis use, unspecified, uncomplicated; I87.2 Venous insufficiency (chronic) (peripheral); F17.210 Nicotine dependence, cigarettes, uncomplicated; M54.32 Sciatica, left side; M54.31 Sciatica, right side; J44.9 Chronic obstructive pulmonary disease, unspecified; M12.571 Traumatic arthropathy, right ankle and foot; I25.10 Atherosclerotic heart disease of native coronary artery without angina pectoris; Z79.2 Long term (current) use of antibiotics; Z96.652 Presence of left artificial knee joint; Z96.651 Presence of right artificial knee joint; Z86.718 Personal history of other venous thrombosis and embolism; Z91.199 Patient's noncompliance with other medical treatment and regimen due to unspecified reason; Z86.73 Personal history of transient ischemic attack (TIA), and cerebral infarction without residual deficits; Z83.3 Family history of diabetes mellitus; Z82.49 Family history of ischemic heart disease and other diseases of the circulatory system; Z68.38 Body mass index [BMI] 38.0-38.9, adult; Z71.6 Tobacco abuse counseling; Y90.9 Presence of alcohol in blood, level not specified
CPT/HCPCS: 36415; 36600; 71045; 75716; 75736; 76705; 80048; 80053; 80061; 80307; 81001; 82248; 82570; 82805; 83036; 83880; 84156; 84300; 84443; 84484; 85025; 85610; 85730; 86850; 86900; 86901; 87040; 87081; 87205; 93005; 93306; 93925; 93971; 93976; 96365; 97110; 97116; 97163; 99152; C1769; G0378; J2250; J3490; Q9967

== ENCOUNTER 2025-02-11 09:36 | Inpatient (IN) | payer MEDICARE, OTHER ==
[~2025-02-11] VITALS: Ht 188 cm; Wt 128.7 kg
[~2025-02-11 09:36] MED LIST changes: +ALL100T PO; -AMLO1TAB22 PO; +AMLO1TAB23 PO; +BUME2TAB5 PO; +CHOL20002 PO; +DICL-545 TOP; +FOLI-119 PO; +FURO1TAB31 PO; -FURO40TA4 PO; +GABA-1251 PO; -HYDR-4611; -HYDR25TA5 PO; +MAGN400C3 PO; -NICO14DI29 TOP; +OXYC325T14 PO; +POTA-180 PO; +THIA100T13 PO
--- NOTE | 2025-02-11 10:28 | ED.PDOC ---
History of Present Illness HPI Comments 69-year-old male presents to the ER with prior medical history of arthritis, CKF, CVA, gout, high lipids, hypertension and a chief complaint of a wound check. Patient reports on having infected wound to the right medial aspect of the ankle which started leaking two days ago. Patient notes on there being no trauma to the area but the wound is chronic and recently finished his course with the antibiotics. Denies any other symptoms at this time. Denies chills, fever, N/V/D, SOB, CP. No other associated symptoms, modifiers, recent injuries or sick contacts present at this time. Chief Complaint: Wound Check Time Seen by MD: 09:50 Reviewed Notes: Nurses Notes, Medications, Allergies Allergies: Coded Allergies: NO KNOWN ALLERGIES (Unverified , 07/19/13) Home Meds Active Scripts Allopurinol (ZYLOPRIM TABLET) 100 Mg Tb, 1 TAB PO DAILY, #90 TAB 1 Refill Prov:CESAR TRIANA MD 11/10/24 Magnesium Oxide (Mg Supplement (MAGNESIUM) 400 Mg Cap, 400 MG PO DAILY, #30 CAP Prov:CESAR TRIANA MD 11/09/24 Folic Acid (Folic Acid) 1 Mg Tab, 1 MG PO DAILY, #30 TAB Prov:CESAR TRIANA MD 11/09/24 Thiamine HCl (Thiamine Hydrochloride) 100 Mg Tab, 100 MG PO DAILY, #30 TAB Prov:CESAR TRIANA MD 11/09/24 Clindamycin Hcl (Clindamycin Hcl) 300 Mg Cap, 1 CAP PO TID, #30 CAP Prov:CESAR TRIANA MD 11/09/24 Potassium Chloride (Potassium Chloride ER) 20 Meq Tab, 20 MEQ PO DAILY, #30 TAB Prov:CESAR TRIANA MD 11/09/24 Furosemide (Lasix) 40 Mg Tab, 40 MG PO BID, #60 TAB Prov:CESAR TRIANA MD 11/09/24 Allopurinol (Allopurinol) 100 Mg Tab, 100 MG PO DAILY for 30 Days, #30 TAB 3 Refills Prov:MAKENZIE BENNETT MD 07/23/21 Reported Medications Cholecalciferol (VITAMIN D3) 2,000 Unit Tab, 1 CAP PO DAILY 11/03/24 Gabapentin (Gabapentin) 400 Mg Cap, 1 CAP PO TID 11/03/24 Amlodipine Besylate (Amlodipine Besylate) 10 Mg Tab, 1 TAB PO DAILY 11/03/24 Oxycodone W/ Acetaminophen (Oxycodone/Acetaminophen 10-300 mg) 1 Tab Tab 12/29/23 Atorvastatin Calcium (ATORVASTATIN CALCIUM) 40 Mg Tab, 1 TAB PO DAILY 05/19/21 Metoprolol Succinate (Metoprolol Succinate Er) 100 Mg Tab, 1 TAB PO DAILY 05/19/21 Tamsulosin Hcl (Tamsulosin Hcl) 0.4 Mg Cap, 1 CAP PO DAILY 05/19/21 Losartan Potassium (Losartan Potassium) 100 Mg Tab, 1 TAB PO DAILY 05/19/21 Information Source: Patient Mode of Arrival: Ambulatory Severity: Moderate Timing: Hours Duration: Since onset, Hours Prehospital treatment: None Past Medical History PAST MEDICAL HISTORY: Arthritis, CKF, CVA, Gout, High Lipids, HTN Surgical History: Denies all surgeries Family History Family History: Reviewed,noncontributory to illness, Unknown Social History Smoker: Cigarettes Alcohol: Occasionally Drugs: Denies Drug Use Lives In: Home Constitutional: denies: chills, diaphoresis, fatigue, fever, malaise, sweats, weakness, others EENTM: denies: blurred vision, double vision, ear bleeding, ear discharge, ear drainage, ear pain, ear ringing, eye pain, eye redness, hearing loss, mouth pain, mouth swelling, nasal discharge, nose bleeding, nose congestion, nose pain, photophobia, tearing, throat pain, throat swelling, voice changes, others Respiratory: denies: cough, hemoptysis, orthopnea, SOB at rest, shortness of breath, SOB with excertion, stridor, wheezing, others Cardiovascular: denies: chest pain, dizzy spells, diaphoresis, Dyspnea on exertion, edema, irregular heart beat, left arm pain, lightheadedness, palpitations, PND, syncope, others Gastrointestinal: denies: abdomen distended, abdominal pain, blood streaked bowels, constipated, diarrhea, dysphagia, difficulty swallowing, hematemesis, melena, nausea, poor appetite, poor fluid intake, rectal bleeding, rectal pain, vomiting, others Genitourinary: denies: burning, dysuria, flank pain, frequency, hematuria, incontinence, penile discharge, penile sore, pain, testicle pain, testicle swelling, urgency, others Neurological: denies: dizziness, fainting, headache, left sided numbness, left sided weakness, numbness, paresthesia, pre-existing deficit, right sided numbness, right sided weakness, seizure, speech problems, tingling, tremors, weakness, others Musculoskeletal: denies: back pain, gout, joint pain, joint swelling, muscle pain, muscle stiffness, neck pain, others Integumetry: reports: wounds (Leaking infected wound to the right medial ankle); denies: bruises, change in color, change in hair/nails, dryness, lacerat ion, lesions, lumps, rash, others Allergic/Immunocompromised: denies: Difficulty Healing, Frequent Infections, Hives, Itching, others Hematologic/Lymphatic: denies: anemia, blood clots, easy bleeding, easy bruisi ng, swollen glands, others Endocrine: denies: excessive hunger, excessive sweating, excessive thirst, exce ssive urination, flushing, intolerance to cold, intolerance to heat, unexplained weight gain, unexplained weight loss, others Psychiatric: denies: anxiety, bipolar disorder, depression, hopeless, panic disorder, schizophrenia, sleepless, suicidal, others All Other Systems: Reviewed and Negative Physical Exam General Appearance: Moderate Distress, Normal HEENT: Normal ENT Inspection, Pharynx Normal, TMs Normal Neck: Full Range of Motion, Non-Tender, Normal, Normal Inspection Respiratory: Chest Non-Tender, Lungs Clear, No Accessory Muscle Use, No Respiratory Distress, Normal Breath Sounds Cardiovascular: No Edema, No JVD, No Murmur, No Gallop, Normal Peripheral Pulses, Regular Rate/Rhythm Breast Exam: Deferred Gastrointestinal: No Organomegaly, Non Tender, No Pulsatile Mass, Normal Bowel Sounds, Soft Genitalia: Deferred Pelvic: Deferred Rectal: Deferred Extremities: No calf tenderness, Normal capillary refill, Normal range of motion, Non-tender, No pedal edema, Other (Deformity of the right ankle) Musculoskeletal : Apperance: Normal Neurologic: Alert, crusher supervisor II-XII nml as Tested, No Motor Deficits, Normal Affect, Normal Mood, No Sensory Deficits Cerebellar Function: Normal Reflexes: Normal Skin: Dry, Normal Color, Warm, Wounds (Right ankle) Peripheral Pulses: 3+ Radial (R), 3+ Radial (L) Lymphatic: No Adenopathy Was a procedure done? Was a procedure done?: No Differential Dx Considerations may include: Cellulitis X-Ray, Labs, Meds, VS Vital Signs Date Time Temp Pulse Resp B/P (MAP) Pulse Ox O2 Delivery O2 Flow Rate FiO2 02/11/25 09:41 98.3 76 16 124/77 98 98.3 Patient alert. Came in because of ankle wound. Vitals stable. Answering questions. Ambulating with a cane. Deformity of the right ankle. Podiatric consultation. Establish intravenous access. Was given Rocephin. Was given clindamycin. Explained to the patient. Continue monitoring. Time of 1ST Reevaluation: 10:22 Reevaluation 1ST: Unchanged Patient Education/Counseling: Diagnosis, Treatment, Prognosis Family Education/Counseling: No Family Present SEPSIS Sepsis Screen Date sepsis recognized/suspect: Feb 11, 2025 Time Sepsis recognized/suspect: 940 Recent Procedure: No On Antibiotic Therapy: No Respiratory Rate >20: No Heart Rate >90: No Temp<36 C (96.8 F) or >38.3 C: No SBP <90 or MAP <65 mmHG: No New Acute Mental Status Change: No Is the patient on CPAP, BIPAP,: No Physician Orders Troponin-I Hs (02/11/25 10:12) Complete Blood Count (02/11/25 10:12) Chest Portable (02/11/25 10:12) Urinalysis (02/11/25 10:12) Basic Metabolic Panel (02/11/25 10:12) Ceftriaxone 1gm/50ml (Rocephin) (02/11/25 10:15) Clindamycin 600mg Iv (Cleocin Iv) (02/11/25 10:15) Vital Signs Date Time Temp Pulse Resp B/P (MAP) Pulse Ox O2 Delivery O2 Flow Rate FiO2 02/11/25 09:41 98.3 76 16 124/77 98 98.3 Departure 1 Departure Time of Disposition: 10:46 Impression: Primary Impression: Cellulitis of right ankle Additional Impression: Antral ulcer Qualified Codes: K25.9 - Gastric ulcer, unspecified as acute or chronic, without hemorrhage or perforation Disposition: ADMITTED INPATIENT Admit to: Med Surg Condition: Guarded Critical Care Note Critical Care Time?: Yes (90 min-critical care time only) Stability Stability form required: No Heart Score Heart Score: Heart Score Response (Comments) Value History N/A 0 EKG N/A 0 Age N/A 0 Risk Factors N/A 0 Troponin N/A 0 Total 0 I personally scribed for FEROZ HAWKINS MD ([email or web address]) on 02/11/25 at 10:28. Electronically submitted by Boone Bray ([email or web address]). FEROZ HAWKINS MD Feb 11, 2025 10:28
--- NOTE | 2025-02-11 10:51 | DVH ---
CHEST RADIOGRAPH INDICATION: sob TECHNIQUE: Single frontal view of the chest was obtained COMPARISON: XY CHEST XRAY 1 VIEW on DOS: 11/03/24, CHEST PORTABLE on DOS: 07/19/21, CXRP on DOS: 07/19/21 FINDINGS: Lines and Tubes: None Lungs: No focal consolidation. Pleura: No effusion. No pneumothorax. Cardiomediastinal contours: Unremarkable Bones: No acute osseous abnormality. IMPRESSION: 1. No acute cardiopulmonary disease. 2. NO SIGNIFICANT CHANGE FROM 11/02/2024.
[2025-02-11 10:53] LABS: Hematocrit 37.7 % (41.0-53.0); Hemoglobin 12.3 g/dL (13.5-17.5); Mean Corpuscular Hemoglobin 26.2 pg (28.0-32.0); Mean Corpuscular Volume 80.1 fL (80.0-100.0); Nucleated Red Blood Cells % 0.0 %
[2025-02-11 11:04] LABS: Chloride 104 mmol/L (98-107); Potassium 3.7 mmol/L (3.5-5.1); Sodium 140 mmol/L (136-145)
[2025-02-11 11:05] LABS: Anion Gap 10 (5-15); Carbon Dioxide 26 mmol/L (20-31)
[2025-02-11 11:06] LABS: Calcium 9.6 mg/dL (8.7-10.4)
[2025-02-11 11:11] LABS: BUN/Creatinine Ratio 12.7 (10.0-20.0); Blood Urea Nitrogen 16 mg/dL (9-23); Glucose 105 mg/dL (74-106)
[2025-02-11 13:32] LABS: Urine Protein, UAD Negative (Negative)
[2025-02-11] MEDS: CLINDAMYCIN 600MG IV 50 ML IV ONE (14:26)
[2025-02-11] MEDS ORDERED: NITROGLYCERIN 0.4 MG SL TAB SL PRN (15:15)
[2025-02-11] MEDS ORDERED: ONDANSETRON HCL 4 MG/2 ML VIAL IV PRN (15:15)
[2025-02-11] MEDS ORDERED: ACETAMINOPHEN 325 MG TAB PO PRN (15:15)
[2025-02-11] MEDS ORDERED: MORPHINE SULFATE 4 MG/ML SYR/VIAL IV PRN (15:30)
[2025-02-11 15:49] LABS: INR 1.07 (0.9-1.15); Partial Thromboplastin Time 52.6 SEC (24.5-34.5); Prothrombin Time 11.3 sec (9.3-11.8)
--- NOTE | 2025-02-11 15:59 | DVH ---
EXAMINATION: CT CT R FOOT WO CONTRAST INDICATION: Rule out ankle osteomyelitis COMPARISON: LFOOT on DOS: 07/19/21, RFOOT on DOS: 07/19/21 TECHNIQUE: CT of the right foot was performed without contrast. Volume transverse images were obtained reconstructed in multiple planes using bone and soft tissue algorithms. Findings/ IMPRESSION: No acute fracture or dislocation. Severe diffuse subcutaneous soft-tissue edema and swelling. Diffuse skin thickening and soft-tissue ulceration at the medial malleolus and posteromedial aspect of the ankle joint overlying the medial calcaneus. These findings are suggestive of cellulitis. Advanced degenerative subchondral cystic and degenerative change at the calcaneal talar joint. No definite bony erosive changes to suggest the presence subacute osteomyelitis. MRI can be obtained to further evaluate if clinically indicated. No discrete fluid collection or abscess.
--- NOTE | 2025-02-11 16:18 | DVHHPRES ---
History of Present Illness Resident Creating Document: EMILIANO GREEN RESIDENT History of Present Illness Mr Lee is a 69 y o m patient with a history of hypertension, diabetes mellitus, and previous venous ulcers presenting with a new wound that began leaking 2 days ago. The patient had previously been treated at a wound clinic f or venous ulcers approximately 3-4 months ago, at which time he was told the ulcers were healed. Two days prior to presentation, the patient noticed his sock became soaking wet from fluid leaking from a new wound. When he removed the dried sock, a piece of tissue came off with it, and the wound continued to leak fluid. The patient reports occasional mild pain in his cheekbone area and notes that the wound has developed a bad smell, which he interprets as a sign of infection. He denies fever but acknowledges the foul odor prompted him to seek medical care. The patient has a significant history of venous ulcers lasting over a year bef ore successful treatment at the wound clinic. He denies having varicose veins, lung issues, kidney issues, or heart problems. Medical History - Hypertension - pre dm - Venous ulcer, healed approximately 3-4 months ago after treatment at wound clinic - History of venous ulcers for over a year prior to healing - hyperlipidemia, gout, BPH - diastolic CHF Surgical history -Total knee replacement Family history - cancer in grandmother Social History - Living Situation: Lives at home with son who provides care support - Smoke: Quit (Patient smoked for 20 years one package per day, he quit 2 months ago. ) - ALCOHOL: heavy (The patient reporsts heavy alcohol consumption about 1/2 bottle a day of gin or tequila. ) - Drugs: Marijuana, Other (He used cocain on teens years, he quit 20 years ago. ) Review of Systems General: Negative for fever. HEENT: Positive for occasional pain in cheekbone. Cardiovascular: Negative for chest pain. Respiratory: Negative for lung issues. Genitourinary: Negative for kidney issues. Musculoskeletal: Positive for occasional pain. Review of Systems Allergies: Coded Allergies: NO KNOWN ALLERGIES (Unverified , 07/19/13) Medications Current Medications Medications Dose Ordered Sig/Yoanna Route Start Time Stop Time Status Last Admin Dose Admin Sodium Chloride 10 ml Q8HR IV 02/11/25 22:00 Sodium Chloride 1,000 ml @ 60 mls/hr [id number] IV 02/11/25 15:15 Acetaminophen/ Hydrocodone Bitart 1 tab Q4HP PRN PO 02/11/25 15:15 Ondansetron HCl 4 mg Q4HP PRN IV 02/11/25 15:15 Enoxaparin Sodium 40 mg DAILY SC 02/12/25 10:00 Acetaminophen 650 mg Q6HP PRN PO 02/11/25 15:15 Nitroglycerin 0.4 mg Q5MINP PRN SL 02/11/25 15:15 Morphine Sulfate 2 mg Q30M PRN IV 02/11/25 15:30 Piperacillin Sod/ Tazobactam Sod 100 ml @ 25 mls/hr Q8HR IV 02/11/25 22:00 Doxycycline Hyclate 100 ml @ 50 mls/hr Q12HR@0400,1600 IV 02/11/25 16:00 Allopurinol 100 mg DAILY PO 02/12/25 10:00 UNV Furosemide 40 mg BID PO 02/11/25 22:00 UNV Tamsulosin HCl 0.4 mg DAILY PO 02/12/25 10:00 UNV Patient Own Medication 1 tab DAILY PO 02/12/25 10:00 UNV Patient Own Medication 1 tab DAILY PO 02/12/25 10:00 UNV Patient Own Medication 1 tab DAILY PO 02/12/25 10:00 UNV Exam Vital Signs Vital Signs Date Time Temp Pulse Resp B/P (MAP) Pulse Ox O2 Delivery O2 Flow Rate FiO2 02/11/25 11:56 97.8 73 18 151/76 (101) 94 97.8 02/11/25 11:56 Room Air Exam Pt is lying on bed General Appearance: Alert, Oriented X3, Cooperative, Not in acute distress HEENT: Atraumatic, Mucous membranes moist/pink Respiratory: Clear to auscultation, Normal air movement, No added sounds Cardiovascular: Regular rate, Normal S1, Normal S2, No murmurs Abdominal: Active bowel sounds, Soft, no distention, no tenderness Extremities: Rt Ankle Wound dressing present on lower extremity. and right extremity is black [place] texture and chronic venous stasis changes Skin: No Significant rash, except past surgical scars Neuro: Normal speech, sensorimotor deficits none Psych/Mental Status: Mental status NL, Mood NL Nurse was there as lab support tech during examination Labs/Xrays Labs Test 02/11/25 12:37 02/11/25 10:23 02/11/25 10:22 Range/Units Prothrombin Time 11.3 9.3-11.8 sec Prothrombin Time INR 1.07 0.9-1.15 Activated Partial Thromboplast Time 52.6 H 24.5-34.5 SEC Lactic Acid Level 1.4 0.4-2.0 mmol/L Urine Color Light-yellow Yellow Urine Clarity Clear Clear Urine pH 6.5 5.0-9.0 Urine Specific Bradley 1.011 1.001-1.035 Urine Protein Negative Negative Urine Ketones Negative Negative Urine Blood Negative Negative /uL Urine Nitrite Negative Negative Urine Bilirubin Negative Negative Urine Urobilinogen Normal Negative mg/dL Urine Leukocyte Esterase Negative Negative /uL Urine RBC 3 0 - 3 /hpf Urine Microscopic WBC < 1 0-3 /HPF Urine Squamous Epithelial Cells Few <5 /hpf Urine Bacteria None seen None Seen /hpf Urine Glucose Normal Normal mg/dL White Blood Count 6.8 4.4-10.8 10^3/uL Red Blood Count 4.71 4.5-5.90 10^6/uL Hemoglobin 12.3 L 13.5-17.5 g/dL Hematocrit 37.7 L 41.0-53.0 % Mean Corpuscular Volume 80.1 80.0-100.0 fL Mean Corpuscular Hemoglobin 26.2 L 28.0-32.0 pg Mean Corpuscular Hemoglobin Concent 32.7 32.0-36.0 g/dL Red Cell Distribution Width 16.3 H 11.8-14.3 % Platelet Count 240 140-450 10^3/uL Mean Platelet Volume 8.3 6.9-10.8 fL Neutrophils (%) (Auto) 68.7 37.0-80.0 % Lymphocytes (%) (Auto) 15.7 10.0-50.0 % Monocytes (%) (Auto) 12.6 H 0.0-12.0 % Eosinophils (%) (Auto) 2.0 0.0-7.0 % Basophils (%) (Auto) 1.0 0.0-2.0 % Neutrophils # (Auto) 4.7 1.6-8.6 10 ^3/uL Lymphocytes # (Auto) 1.1 0.4-5.4 10 ^3/uL Monocytes # (Auto) 0.9 0-1.3 10 ^3/uL Eosinophils # (Auto) 0.1 0-0.8 10 ^3/uL Basophils # (Auto) 0.1 0-0.2 10 ^3/uL Nucleated Red Blood Cells 0.0 % Sodium Level 140 136-145 mmol/L Potassium Level 3.7 3.5-5.1 mmol/L Chloride Level 104 98-107 mmol/L Carbon Dioxide Level 26 20-31 mmol/L Anion Gap 10 5-15 Blood Urea Nitrogen 16 9-23 mg/dL Creatinine 1.26 0.700-1.30 mg/dL Glomerular Filtration Rate Calc 61 >90 mL/min BUN/Creatinine Ratio 12.7 10.0-20.0 Serum Glucose 105 74-106 mg/dL Calcium Level 9.6 8.7-10.4 mg/dL Magnesium Level 2.1 1.6-2.6 mg/dL Troponin I High Sensitivity < 3 L </=54 ng/L B-Type Natriuretic Peptide 8.81 0-100 pg/mL SEPSIS Sepsis Screen Date sepsis recognized/suspect: Feb 11, 2025 Time Sepsis recognized/suspect: 940 Recent Procedure: No On Antibiotic Therapy: No Respiratory Rate >20: No Heart Rate >90: No Temp<36 C (96.8 F) or >38.3 C: No SBP <90 or MAP <65 mmHG: No New Acute Mental Status Change: No Is the patient on CPAP, BIPAP,: No Physician Orders Chest Portable (02/11/25 10:12) Blood Culture (02/11/25 12:15) Wound Culture W/ Gs (02/11/25 12:15) Admit (02/11/25 15:02) Allergies (02/11/25 15:02) Code Status (02/11/25 15:02) 2 Gm Sodium Diet (02/11/25 Dinner) Sodium Chloride Lock (Saline Lock Ns) (02/11/25 22:00) Sodium Chloride 0.9% (02/11/25 15:15) Hydrocodone-Acet 5/325mg Tab ([place] 5/32 (02/11/25 15:15) Ondansetron Hcl (Zofran) (02/11/25 15:15) Enoxaparin Sodium (Lovenox) (02/12/25 10:00) Complete Blood Count (02/12/25 04:00) Comprehensive Metabolic Panel (02/12/25 04:00) Condition: Fair (02/11/25 15:02) Acetaminophen Tablet (Tylenol Tablet) (02/11/25 15:15) Nitroglycerin Sublingual (Ntrostat Subli (02/11/25 15:15) Oxygen By Nasal Cannula (02/11/25 15:02) Stat Ekg For Chest Pain (02/11/25 15:02) Notify Md Of Changes From Base (02/11/25 15:02) Custom Wood Stair Builder For 24 Hours (02/11/25 15:02) Emergency Dysrhythmia Protocol (02/11/25 15:02) Rhythm Strips Once Every Shift (02/11/25 15:02) Ct R Foot Wo Contrast (02/11/25 15:02) Drug Screen (02/11/25 15:02) *Podiatry Consult Musson(Dvmg) (02/11/25 15:02) Mrsa Screen (02/11/25 15:02) Piperacillin-Tazob 3.375gm (Zosyn 3.375g (02/11/25 22:00) Doxycycline 100mg/100ml (Vibramycin) (02/11/25 16:00) Morphine Sulfate Injection (02/11/25 15:30) Piperacillin-Tazob 3.375gm (Zosyn 3.375g (02/11/25 15:30) Allopurinol Tablet (Zyloprim Tablet) (02/12/25 10:00) Furosemide Tablet (Lasix Tablet) (02/11/25 22:00) Tamsulosin Hydrochloride (Flomax) (02/12/25 10:00) (Nf) Amlodipine Besylate (02/12/25 10:00) (Nf) Atorvastatin Calcium (02/12/25 10:00) * Wound Consult (02/11/25 ) (Nf) Losartan Potassium (02/12/25 10:00) Bilat Lower Dvt (02/11/25 16:14) Vital Signs Date Time Temp Pulse Resp B/P (MAP) Pulse Ox O2 Delivery O2 Flow Rate FiO2 02/11/25 11:56 97.8 73 18 151/76 (101) 94 97.8 02/11/25 11:56 73 18 94 Room Air 02/11/25 09:41 98.3 76 16 124/77 98 98.3 Laboratory Tests Test 02/11/25 10:22 02/11/25 12:37 White Blood Count 6.8 10^3/uL (4.4-10.8) Lactic Acid Level 1.4 mmol/L (0.4-2.0) Medications Medications Dose Ordered Sig/Yoanna Route Start Time Stop Time Status Last Admin Dose Admin Ceftriaxone Sodium 50 ml @ 100 mls/hr ONCE ONCE IV 02/11/25 10:15 02/11/25 10:44 DC 02/11/25 13:11 100 MLS/HR Clindamycin Phosphate 50 ml @ 50 mls/hr ONCE ONCE IV 02/11/25 10:15 02/11/25 11:14 DC 02/11/25 14:26 50 MLS/HR Assessment/Plan Assessment/Plan Jesus presents with a new venous ulcer on his leg that developed 2 days ago with leaking fluid and foul odor, concerning for infection, in the setting of diabetes and hypertension with history of previous venous ulcer that healed 3-4 months ago. Acute on chronic venous stasis ulcer Right lower extremity cellulitis Rule out osteomyelitis Chronic venous insufficiency bilateral lower extremities Mild PAD s/p peripheral angio Plan: - wound consult, wound culture, podiatry - CT foot - Zosyn and doxycycline - Wound assessment - Lipitor Hypertension Diastolic CHF likely not in exacerbation - continue Lasix 40 - resumed losartan ( not resumed all home medications for CHF) - recent echo showed diastolic dysfunction Gout - resumed allopurinol GI PPX: Protonix VTE ppx: Lovenox Diet: Cardiac Goals of care addressed with the patient for more than 27 minutes: Full code status Case discussed with Dr. Selby , patient and nurse Plan discussed with: Patient, Other (rn) My Orders Orders - EMILIANO GREEN RESIDENT Procedure Category Date Status Time Admit ADMIT 02/11/25 Transmitted 15:02 Allergies THERESA 02/11/25 In Process 15:02 Code Status CODE 02/11/25 Transmitted 15:02 2 Gm Sodium Diet DIET 02/11/25 Transmitted Dinner Sodium Chloride Lock PHA 02/11/25 In Process (Saline Lock Ns) 22:00 Sodium Chloride 0.9% PHA 02/11/25 In Process 15:15 Hydrocodone-Acet PHA 02/11/25 In Process 5/325mg Tab ([place] 15:15 Ondansetron Hcl PHA 02/11/25 In Process (Zofran) 15:15 Enoxaparin Sodium PHA 02/12/25 In Process (Lovenox) 10:00 Complete Blood Count LAB 02/12/25 Verified 04:00 Comprehensive LAB 02/12/25 Verified Metabolic Panel 04:00 Condition: Fair THERESA 02/11/25 In Process 15:02 Acetaminophen Tablet PHA 02/11/25 In Process (Tylenol Tablet) 15:15 Nitroglycerin PHA 02/11/25 In Process Sublingual (Ntrostat 15:15 Oxygen By Nasal RT 02/11/25 Transmitted Cannula 15:02 Stat Ekg For Chest THERESA 02/11/25 In Process Pain 15:02 Notify Of Changes THERESA 02/11/25 In Process From Base 15:02 Custom Wood Stair Builder For [facility] 02/11/25 In Process 24 Hours 15:02 Emergency Dysrhythmia [facility] 02/11/25 In Process Protocol 15:02 Rhythm Strips Once [facility] 02/11/25 In Process Every Shift 15:02 Ct R Foot Wo Contrast CT 02/11/25 Resulted 15:02 Drug Screen LAB 02/11/25 Logged 15:02 *Podiatry Consult CONS 02/11/25 Transmitted Musson(Dvmg) 15:02 Mrsa Screen JOS 02/11/25 Logged 15:02 Piperacillin-Tazob PHA 02/11/25 In Process 3.375gm (Zosyn 3.375g 22:00 Doxycycline PHA 02/11/25 In Process 100mg/100ml 16:00 Morphine Sulfate PHA 02/11/25 In Process Injection 15:30 Piperacillin-Tazob PHA 02/11/25 In Process 3.375gm (Zosyn 3.375g 15:30 Allopurinol Tablet PHA 02/12/25 Logged (Zyloprim Tablet) 10:00 Furosemide Tablet PHA 02/11/25 Logged (Lasix Tablet) 22:00 Tamsulosin PHA 02/12/25 Logged Hydrochloride (Flomax) 10:00 (Nf) Amlodipine PHA 02/12/25 Logged Besylate 10:00 (Nf) Atorvastatin PHA 02/12/25 Logged Calcium 10:00 * Wound Consult CONS 02/11/25 Transmitted (Nf) Losartan PHA 02/12/25 Logged Potassium 10:00 Bilat Lower Dvt US 02/11/25 Logged 16:14 Visit Coding STANDARD RES Billing Provider: VALERIE SELBY MD Date of Service if different f: Feb 11, 2025 Common Visit Codes: [id number] INP/OBS CARE (HIGH) Secondary Visit Codes: [id number] CARE PLAN 30 MINUTES DENIS GREENRondaKASANDRA RESIDENT Feb 11, 2025 16:17
--- NOTE | 2025-02-11 17:28 | DVH ---
TECHNIQUE: Real-time ultrasound imaging, with color Doppler and compression of the bilateral common femoral vein, femoral vein, greater saphenous vein, and popliteal vein. INDICATION: Rule out DVT COMPARISON: US RT LOWER DVT on DOS: 11/03/24, FINDINGS: There is normal compressibility and flow augmentation in all of the imaged deep veins. There are no filling defects. Left louis's cyst measuring 3.6 x 1.9 cm. Right inguinal lymph node with fatty hilum measuring 2.6 x 1.2 X 5.4 cm. IMPRESSION: No evidence of DVT in the bilateral lower extremities Right inguinal lymph node with fatty hilum measuring 5.4 x 2.6 x 1.2 cm.
[2025-02-11 20:33] VITALS: PULSE 80; RESP 18; O2SAT 96
[2025-02-11 20:43] LABS: Amphetamine Screen, Urine Neg (NEGATIVE); Barbiturate Scree,Urine Neg (NEGATIVE); Benzodiazephine Screen, Urine Neg (NEGATIVE); Cannabinoid Screen, Urine Neg (NEGATIVE); Cocaine Screen, Urine Neg (NEGATIVE); Opiate Scree,Urine Neg (NEGATIVE); Phencyclidine Screen, Urine Neg (NEGATIVE)
[2025-02-11 21:00] VITALS: BP 148/87; PULSE 79; RESP 18; TEMP 98.6; O2SAT 94
[2025-02-11 21:18] VITALS: BP 148/87; PULSE 79; RESP 18; TEMP 98.6; O2SAT 94
[2025-02-11] MEDS: PIPERACILLIN-TAZOB 3.375GM 100 ML IV ONE (21:53)
[2025-02-11] MEDS: FUROSEMIDE 40 MG TAB PO SCH (21:54)
[2025-02-11] MEDS: DOXYCYCLINE 100MG/100ML 100 ML IV SCH (21:54)
[2025-02-11] MEDS: SODIUM CHLORIDE 0.9% 1,000 ML IV SCH (21:57)
[2025-02-11] MEDS: HYDROcodone-ACET 5/325MG TAB PO PRN (21:58)
[2025-02-11] MEDS: SODIUM CHLOR 0.9% PF (SALINE LOCK) 10ML VIAL/SYR IV SCH (21:58)
[2025-02-11] MEDS: PIPERACILLIN-TAZOB 3.375GM 100 ML IV SCH (22:05)
[2025-02-12] VITALS (8 sets, daily range): BP systolic 121–144; BP diastolic 78–95; PULSE 69–82; RESP 14–20; TEMP 97–98.6; O2SAT 94–99
[2025-02-12 06:50] LABS: Hematocrit 35.3 % (41.0-53.0); Hemoglobin 11.8 g/dL (13.5-17.5); Mean Corpuscular Hemoglobin 27.0 pg (28.0-32.0); Mean Corpuscular Volume 80.4 fL (80.0-100.0); Nucleated Red Blood Cells % 0.0 %
[2025-02-12 07:04] LABS: Alanine Aminotransferase 15 U/L (7-40); Albumin 3.8 g/dL (3.2-4.8); Alkaline Phosphatase 62 U/L (46-116); Anion Gap 10 (5-15); BUN/Creatinine Ratio 11.0 (10.0-20.0); Bilirubin, Total 1.0 mg/dL (0.2-1.0); Blood Urea Nitrogen 14 mg/dL (9-23); Calcium 9.2 mg/dL (8.7-10.4); Carbon Dioxide 28 mmol/L (20-31); Chloride 107 mmol/L (98-107); Glucose 94 mg/dL (74-106); Sodium 145 mmol/L (136-145); Total Protein 7.4 g/dL (5.7-8.2)
[2025-02-12 07:10] LABS: Potassium 3.4 mmol/L (3.5-5.1)
[2025-02-12] MEDS: ENOXAPARIN SOD 40 MG/0.4 ML SYRINGE SC SCH (10:00)
[2025-02-12] MEDS: POTASSIUM EFFERVESENT TAB 25 MEQ PO ONE (11:32)
[2025-02-12] MEDS: PANTOPRAZOLE 40 MG/10 ML VIAL INJ IV SCH (11:33)
[2025-02-12] MEDS: ATORVASTATIN 20 MG TAB PO SCH (11:33)
[2025-02-12] MEDS: LOSARTAN POTASSIUM 50 MG TAB PO SCH (11:34)
[2025-02-12] MEDS: ALLOPURINOL 100 MG TAB PO SCH (11:34)
--- NOTE | 2025-02-12 12:20 | DVHPNRES ---
Progress Note Date Seen: Feb 12, 2025 Resident Creating Document: MAURI WHITMAN RESIDENT Medical Necessity Reason Pt with a Central, PICC or Fol: No Subjective Review of Systems Mr. Wadsworth is a 69-year-old male with prior medical history of hypertension, prediabetes, chronic venous insufficiency, venous ulcers, hyperlipidemia, BPH, HFpEF, and gout, who presented to [facility] with chief complaint of affected right leg wound. The patient states he noticed the leg wound on the medial aspect of the right heel 2 days prior to presentation and noticed drainage of clear fluid associated with foul odor, surrounding edema, and sharp intermittent in pain, 10/10 intensity, nonradiating, which worsens when he elevates his leg, without relieving factors. He denies fever, nausea, vomiting, purulent suppuration, decreased sensation in right foot, chest pain, abdominal pain, and palpitations. due to persistence of symptoms he presented to the ED for evaluation. On evaluation in the ED, he is afebrile, normocardic, normotensive, and saturating adequately on room air. initial labs are significant for mild normocytic anemia, UA and UDS without significant findings. Chest x-ray shows no acute cardiopulmonary disease. Right foot CT shows no acute fracture or dislocation, severe diffuse subcutaneous soft tissue edema and swelling, diffuse skin thickening and soft tissue ulceration of the medial malleolus and posterior medial aspect of the ankle joint overlying the medial calcaneus, advanced degenerative subchondral cystic degenerative change at the calcaneal talar joint. Venous duplex ultrasound shows no evidence of DVT in bilateral lower extremities. Patient was started on IV antibiotics and was admitted for further workup and monitoring. Prior Surgical History: Right total knee replacement in 2011 Allergies: Denies Social: States he smoked cigarettes for approximately 35 years with cessation 5 months ago, refers heavy alcohol use with cessation 5 months ago, states he utilized meth and cocaine with cessation in 1991. He currently lives with his mother, states he feels safe. PCP: Jessika saini Ashford 02/12/2025: Patient seen at bedside. He states he is well, mainly complains of continued drainage from wound on right ankle. He is afebrile, normocardic, normotensive, and saturating adequately on room air. Follow up labs are significant for mild hypokalemia, which was replaced. Antibiotics were adjusted. He is pending evaluation by podiatry. Review of Systems: Constitutional: Denies weight loss, fever and chills. HEENT: Denies changes in vision and hearing. Respiratory: Denies shortness of breath and cough Cardiovascular: Denies chest discomfort or palpitations GI: Denies abdominal distention, abdominal pain, diarrhea : Denies dysuria and urinary frequency. Musculoskeletal: Denies pain Skin: Refers presence of wound draining clear yellow fluid Neurological: denies dizziness headache vision or hearing problems Objective vital signs Vital Sign Date Time Temp Pulse Resp B/P (MAP) Pulse Ox O2 Delivery O2 Flow Rate FiO2 02/12/25 09:00 97.7 71 20 137/95 (109) 94 97.7 02/11/25 21:18 Room Air* 0 21 Total Intake and Output 02/11/25 02/11/25 02/12/25 15:00 23:00 07:00 Intake Total 400 ml Output Total 800 ml Balance -400 ml medications Current Medications Medications Dose Ordered Sig/Yoanna Route Start Time Stop Time Status Last Admin Dose Admin Sodium Chloride 10 ml Q8HR IV 02/11/25 22:00 02/12/25 06:04 10 ML Sodium Chloride 1,000 ml @ 60 mls/hr [id number] IV 02/11/25 15:15 02/11/25 21:57 60 MLS/HR Acetaminophen/ Hydrocodone Bitart 1 tab Q4HP PRN PO 02/11/25 15:15 02/12/25 06:04 1 TAB Ondansetron HCl 4 mg Q4HP PRN IV 02/11/25 15:15 Enoxaparin Sodium 40 mg DAILY SC 02/12/25 10:00 Acetaminophen 650 mg Q6HP PRN PO 02/11/25 15:15 Allopurinol 100 mg DAILY PO 02/12/25 10:00 Furosemide 40 mg BIDD PO 02/11/25 18:00 02/12/25 06:04 40 MG Tamsulosin HCl 0.4 mg QPM PO 02/12/25 18:00 Amlodipine Besylate 10 mg DAILY PO 02/12/25 10:00 Atorvastatin Calcium 40 mg HS PO 02/12/25 10:00 Losartan Potassium 100 mg DAILY PO 02/12/25 10:00 Pantoprazole Sodium 40 mg DAILY IV 02/12/25 10:00 Ceftriaxone Sodium 50 ml @ 100 mls/hr DAILY@09 IV 02/13/25 09:00 Examination General: The patient alert and oriented in person place and time. Patient following commands HEENT: Normocephalic, atraumatic, normal reactive pupils, EOM intact, pink conjunctiva, pink moist mucous membrane Respiratory/pulmonary: Bilateral chest expansion, no pain on palpation of chest wall, clear lungs bilaterally, vesicular murmurs present in almost all lung edmonds, no associated crackles or wheezes. Cardiovascular: Normal RRR, normal S1 and S2, no murmurs Abdomen: Obese, abdomen nondistended, normal bowel sounds, soft, there is no pain to palpation in any of the abdominal quadrants, no palpable masses. Extremities: No deformities, 2+ pitting edema observed in bilateral feet, pulses are palpable Skin: There is a flat red wound on the medial surface of the right malleolus withs surrounding edema, suppuration of clear serous fluid, no odor is noted, pain to palpation Neurological: Intact cranial nerves with no focal neurologic deficits laboratory and microbiology Laboratory Tests 02/12/25 04:53 Test 02/12/25 04:53 Range/Units Serum Glucose 94 74-106 mg/dL Microbiology Date/Time Source Procedure Growth Status 02/11/25 12:30 Foot Gram Stain Pending Resulted 02/11/25 12:30 Foot Wound Culture - Preliminary Resulted Problem List/Assessment/Plan Problem List/Assessment/Plan Assessment and Plan: Cellulitis of the right medial malleolus secondary to venous ulcer Questionable osteomyelitis Chronic venous insufficiency - Right Foot CT: no acute fracture or dislocation, severe diffuse subcutaneous soft tissue edema and swelling, diffuse skin thickening and soft tissue ulceration at the medial malleolus and posterior medial aspect of the ankle joint overlying the medial calcaneus. Advanced degenerative subchondral cystic degenerative change at the calcaneal talar joint. - Wound culture: Preliminary: Moderate growth of gram negative rods - Zosyn discontinued - Doxycycline discontinued - Ceftriaxone 1 g IV daily - [place] 5/325 mg PO q 4 hours PRN - Acetaminophen 650 mg PO q6 hours PRN - Pending evaluation by Podiatry Normocytic anemia - Monitor H and H Hypokalemia - Monitor potassium levels - Replete as needed DVT ruled out - Bilateral Venous Duplex US: No DVT Hypertension - Monitor BP - Losartan 100 mg PO daily - Amlodipine 10 mg PO daily Hyperlipidemia - Atorvastatin 40 mg PO HS Chronic HFpEF, not in exacerbation - Echocardiogram 11/05/2024: of 65%, grade 1 diastolic dysfunction - Furosemide 40 mg PO BID Gout - Allopurinol 100 mg PO daily BPH - Flomax 0.4 mg PO q AM Morbid obesity, 36.8 kg/m2 - I have counseled the patient on healthy life style modifications. History of polysubstance abuse History of tobacco use Diet: Cardiac DVT prophylaxis: Lovenox 40 mg SC daily GI prophylaxis: Protonix 40 mg IV daily Goals of care discussed with the patient for over 35 minutes. FULL CODE. Case discussed with Dr. Porter Plan discussed with: Patient, Other (Nurse) Visit Coding STANDARD RES Billing Provider: JAYLAN PORTER MD Date of Service if different f: Feb 12, 2025 Common Visit Codes: [id number] INP/OBS CARE(HIGH) MAURI WHITMAN RESIDENT Feb 12, 2025 12:20 JAYLAN PORTER MD Feb 17, 2025 15:58
[2025-02-12] MEDS: TAMSULOSIN HYDROCHLORIDE 0.4 MG CAP PO SCH (18:18)
[2025-02-13] VITALS (7 sets, daily range): BP systolic 102–119; BP diastolic 71–90; PULSE 74–90; RESP 14–20; TEMP 97.6–98.6; O2SAT 93–100
[2025-02-13 09:46] LABS: Hematocrit 35.5 % (41.0-53.0); Hemoglobin 11.7 g/dL (13.5-17.5); Mean Corpuscular Hemoglobin 26.5 pg (28.0-32.0); Mean Corpuscular Volume 80.4 fL (80.0-100.0); Nucleated Red Blood Cells % 0.1 %
[2025-02-13 10:03] LABS: Anion Gap 11 (5-15); Carbon Dioxide 25 mmol/L (20-31); Chloride 104 mmol/L (98-107); Sodium 140 mmol/L (136-145)
[2025-02-13 10:04] LABS: Calcium 9.3 mg/dL (8.7-10.4)
[2025-02-13 10:09] LABS: BUN/Creatinine Ratio 9.9 (10.0-20.0); Blood Urea Nitrogen 12 mg/dL (9-23); Potassium 3.5 mmol/L (3.5-5.1)
[2025-02-13 10:11] LABS: Glucose 134 mg/dL (74-106)
--- NOTE | 2025-02-13 16:11 | DVHPNRES ---
Progress Note Date Seen: Feb 13, 2025 Resident Creating Document: MAURI WHITMAN RESIDENT Medical Necessity Reason Pt with a Central, PICC or Fol: No Subjective Review of Systems Mr. Wadsworth is a 69-year-old male with prior medical history of hypertension, prediabetes, chronic venous insufficiency, venous ulcers, hyperlipidemia, BPH, HFpEF, and gout, who presented to [facility] with chief complaint of affected right leg wound. The patient states he noticed the leg wound on the medial aspect of the right heel 2 days prior to presentation and noticed drainage of clear fluid associated with foul odor, surrounding edema, and sharp intermittent in pain, 10/10 intensity, nonradiating, which worsens when he elevates his leg, without relieving factors. He denies fever, nausea, vomiting, purulent suppuration, decreased sensation in right foot, chest pain, abdominal pain, and palpitations. due to persistence of symptoms he presented to the ED for evaluation. On evaluation in the ED, he is afebrile, normocardic, normotensive, and saturating adequately on room air. initial labs are significant for mild normocytic anemia, UA and UDS without significant findings. Chest x-ray shows no acute cardiopulmonary disease. Right foot CT shows no acute fracture or dislocation, severe diffuse subcutaneous soft tissue edema and swelling, diffuse skin thickening and soft tissue ulceration of the medial malleolus and posterior medial aspect of the ankle joint overlying the medial calcaneus, advanced degenerative subchondral cystic degenerative change at the calcaneal talar joint. Venous duplex ultrasound shows no evidence of DVT in bilateral lower extremities. Patient was started on IV antibiotics and was admitted for further workup and monitoring. Prior Surgical History: Right total knee replacement in 2011 Allergies: Denies Social: States he smoked cigarettes for approximately 35 years with cessation 5 months ago, refers heavy alcohol use with cessation 5 months ago, states he utilized meth and cocaine with cessation in 1991. He currently lives with his mother, states he feels safe. PCP: Jessika saini [place] 02/13/2025: Patient seen at bedside. He states he is well, currently has no complaints. He is afebrile, normocardic, normotensive, and saturating adequately on room air. Follow up labs are stable. Pending evaluation by podiatry. Objective vital signs Vital Sign Date Time Temp Pulse Resp B/P (MAP) Pulse Ox O2 Delivery O2 Flow Rate FiO2 02/13/25 13:00 97.6 81 20 106/84 (91) 95 97.6 02/13/25 08:00 Room Air* 0 21 Total Intake and Output 02/12/25 02/12/25 02/13/25 15:00 23:00 07:00 Intake Total 966 ml 400 ml Output Total 1600 ml 1800 ml Balance -634 ml -1400 ml medications Current Medications Medications Dose Ordered Sig/Yoanna Route Start Time Stop Time Status Last Admin Dose Admin Sodium Chloride 10 ml Q8HR IV 02/11/25 22:00 02/13/25 15:06 10 ML Sodium Chloride 1,000 ml @ 60 mls/hr [id number] IV 02/11/25 15:15 02/13/25 00:35 60 MLS/HR Acetaminophen/ Hydrocodone Bitart 1 tab Q4HP PRN PO 02/11/25 15:15 02/13/25 15:06 1 TAB Ondansetron HCl 4 mg Q4HP PRN IV 02/11/25 15:15 Enoxaparin Sodium 40 mg DAILY SC 02/12/25 10:00 Acetaminophen 650 mg Q6HP PRN PO 02/11/25 15:15 Allopurinol 100 mg DAILY PO 02/12/25 10:00 02/12/25 11:34 100 MG Furosemide 40 mg BIDD PO 02/11/25 18:00 02/13/25 05:48 40 MG Tamsulosin HCl 0.4 mg QPM PO 02/12/25 18:00 02/12/25 18:18 0.4 MG Amlodipine Besylate 10 mg DAILY PO 02/12/25 10:00 02/12/25 11:35 10 MG Atorvastatin Calcium 40 mg HS PO 02/12/25 10:00 02/12/25 21:53 40 MG Losartan Potassium 100 mg DAILY PO 02/12/25 10:00 02/12/25 11:34 100 MG Pantoprazole Sodium 40 mg DAILY IV 02/12/25 10:00 02/13/25 09:04 40 MG Ceftriaxone Sodium 50 ml @ 100 mls/hr DAILY@09 IV 02/13/25 09:00 02/13/25 09:03 100 MLS/HR Examination General: The patient alert and oriented in person place and time. Patient following commands HEENT: Normocephalic, atraumatic, normal reactive pupils, EOM intact, pink conjunctiva, pink moist mucous membrane Respiratory/pulmonary: Bilateral chest expansion, no pain on palpation of chest wall, clear lungs bilaterally, vesicular murmurs present in almost all lung edmonds, no associated crackles or wheezes. Cardiovascular: Normal RRR, normal S1 and S2, no murmurs Abdomen: Obese, abdomen nondistended, normal bowel sounds, soft, there is no pain to palpation in any of the abdominal quadrants, no palpable masses. Extremities: No deformities, 2+ pitting edema observed in bilateral feet, pulses are palpable Skin: There is a flat red wound on the medial surface of the right malleolus withs surrounding edema, suppuration of clear serous fluid, no odor is noted, pain to palpation Neurological: Intact cranial nerves with no focal neurologic deficits laboratory and microbiology Laboratory Tests 02/13/25 08:46 Test 02/13/25 08:46 Range/Units Serum Glucose 134 H 74-106 mg/dL Microbiology Date/Time Source Procedure Growth Status 02/12/25 21:51 Nose MRSA Screen - Final Complete 02/11/25 13:17 Blood Blood Culture - Preliminary NO GROWTH AFTER 48 HOURS OF INCUBATION. Resulted Problem List/Assessment/Plan Problem List/Assessment/Plan Assessment and Plan: Cellulitis of the right medial malleolus secondary to venous ulcer Questionable osteomyelitis Chronic venous insufficiency - Right Foot CT: no acute fracture or dislocation, severe diffuse subcutaneous soft tissue edema and swelling, diffuse skin thickening and soft tissue ulceration at the medial malleolus and posterior medial aspect of the ankle joint overlying the medial calcaneus. Advanced degenerative subchondral cystic degenerative change at the calcaneal talar joint. - Wound culture: Preliminary: Moderate growth of gram negative rods - Zosyn discontinued - Doxycycline discontinued - Ceftriaxone 1 g IV daily - [place] 5/325 mg PO q 4 hours PRN - Acetaminophen 650 mg PO q6 hours PRN - Pending evaluation by Podiatry Normocytic anemia - Monitor H and H Hypokalemia - Monitor potassium levels - Replete as needed DVT ruled out - Bilateral Venous Duplex US: No DVT Hypertension - Monitor BP - Losartan 100 mg PO daily - Amlodipine 10 mg PO daily Hyperlipidemia - Atorvastatin 40 mg PO HS Chronic HFpEF, not in exacerbation - Echocardiogram 11/05/2024: of 65%, grade 1 diastolic dysfunction - Furosemide 40 mg PO BID Gout - Allopurinol 100 mg PO daily BPH - Flomax 0.4 mg PO q AM Morbid obesity, 36.8 kg/m2 - I have counseled the patient on healthy life style modifications. History of polysubstance abuse History of tobacco use Diet: Cardiac DVT prophylaxis: Lovenox 40 mg SC daily GI prophylaxis: Protonix 40 mg IV daily Goals of care discussed with the patient for over 32 minutes. FULL CODE. Case discussed with Dr. Porter Plan discussed with: Patient, Other (Nurse) Visit Coding STANDARD RES Billing Provider: JAYLAN PORTER MD Date of Service if different f: Feb 13, 2025 Common Visit Codes: [id number] INP/OBS CARE(HIGH) MAURI WHITMAN RESIDENT Feb 13, 2025 16:11 JAYLAN PORTER MD Feb 18, 2025 13:55
[2025-02-14] VITALS (7 sets, daily range): BP systolic 107–135; BP diastolic 71–89; PULSE 63–98; RESP 17–20; TEMP 97.1–98.7; O2SAT 93–96
--- NOTE | 2025-02-14 10:28 | DVHPNRES ---
Progress Note Date Seen: Feb 14, 2025 Resident Creating Document: MAURI WHITMAN RESIDENT Medical Necessity Reason Pt with a Central, PICC or Fol: No Subjective Review of Systems Mr. Wadsworth is a 69-year-old male with prior medical history of hypertension, prediabetes, chronic venous insufficiency, venous ulcers, hyperlipidemia, BPH, HFpEF, and gout, who presented to [facility] with chief complaint of affected right leg wound. The patient states he noticed the leg wound on the medial aspect of the right heel 2 days prior to presentation and noticed drainage of clear fluid associated with foul odor, surrounding edema, and sharp intermittent in pain, 10/10 intensity, nonradiating, which worsens when he elevates his leg, without relieving factors. He denies fever, nausea, vomiting, purulent suppuration, decreased sensation in right foot, chest pain, abdominal pain, and palpitations. due to persistence of symptoms he presented to the ED for evaluation. On evaluation in the ED, he is afebrile, normocardic, normotensive, and saturating adequately on room air. initial labs are significant for mild normocytic anemia, UA and UDS without significant findings. Chest x-ray shows no acute cardiopulmonary disease. Right foot CT shows no acute fracture or dislocation, severe diffuse subcutaneous soft tissue edema and swelling, diffuse skin thickening and soft tissue ulceration of the medial malleolus and posterior medial aspect of the ankle joint overlying the medial calcaneus, advanced degenerative subchondral cystic degenerative change at the calcaneal talar joint. Venous duplex ultrasound shows no evidence of DVT in bilateral lower extremities. Patient was started on IV antibiotics and was admitted for further workup and monitoring. Prior Surgical History: Right total knee replacement in 2011 Allergies: Denies Social: States he smoked cigarettes for approximately 35 years with cessation 5 months ago, refers heavy alcohol use with cessation 5 months ago, states he utilized meth and cocaine with cessation in 1991. He currently lives with his mother, states he feels safe. PCP: Jessika saini [place] 02/14/2025: Patient seen at bedside. He states he is well, complains of pain in the area of the wound. He is afebrile, normocardic, normotensive, and saturating adequately on room air. Wound culture growing Klebseilla oxytoca, protus, and enterococcus faecalis. Patient will be started on daptomycin. MRI has been ordered to evaluate possible osteomyelitis of the right foot. Pending evaluation by podiatry. Objective vital signs Vital Sign Date Time Temp Pulse Resp B/P (MAP) Pulse Ox O2 Delivery O2 Flow Rate FiO2 02/14/25 08:59 119/82 02/14/25 05:00 97.9 91 19 96 97.9 02/13/25 20:00 Room Air* 0 21 Total Intake and Output 02/13/25 02/13/25 02/14/25 15:00 23:00 07:00 Intake Total 50 ml 620 ml 750 ml Output Total 2400 ml 800 ml Balance 50 ml -1780 ml -50 ml medications Current Medications Medications Dose Ordered Sig/Yoanna Route Start Time Stop Time Status Last Admin Dose Admin Sodium Chloride 10 ml Q8HR IV 02/11/25 22:00 02/14/25 06:04 10 ML Sodium Chloride 1,000 ml @ 60 mls/hr [id number] IV 02/11/25 15:15 02/13/25 17:15 60 MLS/HR Acetaminophen/ Hydrocodone Bitart 1 tab Q4HP PRN PO 02/11/25 15:15 02/14/25 08:59 1 TAB Ondansetron HCl 4 mg Q4HP PRN IV 02/11/25 15:15 Enoxaparin Sodium 40 mg DAILY SC 02/12/25 10:00 Acetaminophen 650 mg Q6HP PRN PO 02/11/25 15:15 Allopurinol 100 mg DAILY PO 02/12/25 10:00 02/14/25 08:59 100 MG Furosemide 40 mg BIDD PO 02/11/25 18:00 02/14/25 06:02 40 MG Tamsulosin HCl 0.4 mg QPM PO 02/12/25 18:00 02/13/25 18:21 0.4 MG Amlodipine Besylate 10 mg DAILY PO 02/12/25 10:00 02/14/25 08:58 10 MG Atorvastatin Calcium 40 mg HS PO 02/12/25 10:00 02/13/25 21:23 40 MG Losartan Potassium 100 mg DAILY PO 02/12/25 10:00 02/14/25 08:59 100 MG Pantoprazole Sodium 40 mg DAILY IV 02/12/25 10:00 02/14/25 08:58 40 MG Ceftriaxone Sodium 50 ml @ 100 mls/hr DAILY@09 IV 02/13/25 09:00 02/14/25 08:58 100 MLS/HR Examination General: The patient alert and oriented in person place and time. Patient following commands HEENT: Normocephalic, atraumatic, normal reactive pupils, EOM intact, pink conjunctiva, pink moist mucous membrane Respiratory/pulmonary: Bilateral chest expansion, no pain on palpation of chest wall, clear lungs bilaterally, vesicular murmurs present in almost all lung edmonds, no associated crackles or wheezes. Cardiovascular: Normal RRR, normal S1 and S2, no murmurs Abdomen: Obese, abdomen nondistended, normal bowel sounds, soft, there is no pain to palpation in any of the abdominal quadrants, no palpable masses. Extremities: No deformities, 2+ pitting edema observed in bilateral feet, pulses are palpable Skin: There is a flat red wound on the medial surface of the right malleolus withs surrounding edema, granulation tissue is noted, suppuration of clear serous fluid, no odor is noted, pain to palpation Neurological: Intact cranial nerves with no focal neurologic deficits laboratory and microbiology Laboratory Tests 02/13/25 08:46 Test 02/13/25 08:46 Range/Units Serum Glucose 134 H 74-106 mg/dL Microbiology Date/Time Source Procedure Growth Status 02/12/25 21:51 Nose MRSA Screen - Final Complete 02/11/25 13:17 Blood Blood Culture - Preliminary NO GROWTH AFTER 48 HOURS OF INCUBATION. Resulted Problem List/Assessment/Plan Problem List/Assessment/Plan Assessment and Plan: Cellulitis of the right medial malleolus secondary to venous ulcer Questionable osteomyelitis Chronic venous insufficiency - Right Foot CT: no acute fracture or dislocation, severe diffuse subcutaneous soft tissue edema and swelling, diffuse skin thickening and soft tissue ulceration at the medial malleolus and posterior medial aspect of the ankle joint overlying the medial calcaneus. Advanced degenerative subchondral cystic degenerative change at the calcaneal talar joint. - Wound culture: Klebsiella oxytoca, proteus, and Enterococcus faecalis - Zosyn discontinued - Doxycycline discontinued - Ceftriaxone 1 g IV daily - Daptomycin 6 mg/kg IV daily - [place] 5/325 mg PO q 4 hours PRN - Acetaminophen 650 mg PO q6 hours PRN - Pending evaluation by Podiatry Normocytic anemia - Monitor H and H Hypokalemia - Monitor potassium levels - Replete as needed DVT ruled out - Bilateral Venous Duplex US: No DVT Hypertension - Monitor BP - Losartan 100 mg PO daily - Amlodipine 10 mg PO daily Hyperlipidemia - Atorvastatin 40 mg PO HS Chronic HFpEF, not in exacerbation - Echocardiogram 11/05/2024: of 65%, grade 1 diastolic dysfunction - Furosemide 40 mg PO BID Gout - Allopurinol 100 mg PO daily BPH - Flomax 0.4 mg PO q AM Morbid obesity, 36.8 kg/m2 - I have counseled the patient on healthy life style modifications. History of polysubstance abuse History of tobacco use Diet: Cardiac DVT prophylaxis: Lovenox 40 mg SC daily GI prophylaxis: Protonix 40 mg IV daily Goals of care discussed with the patient for over 32 minutes. FULL CODE. Case discussed with Dr. Porter Plan discussed with: Patient, Other (Nurse) My Orders My Orders Orders - MAURI WHITMAN Procedure Category Date Status Time Cleanse Wound With THERESA 02/13/25 In Process Wound Clean 14:00 * Dietary Consult CONS 02/13/25 Transmitted 19:52 Visit Coding STANDARD RES Billing Provider: JAYLAN PORTER MD Date of Service if different f: Feb 14, 2025 Common Visit Codes: [id number] INP/OBS CARE(HIGH) MAURI WHITMAN RESIDENT Feb 14, 2025 10:28 JAYLAN PORTER MD Feb 18, 2025 13:57
--- NOTE | 2025-02-14 17:24 | DVH ---
MRI RIGHT HEEL WITHOUT CONTRAST HISTORY: R/o osteomyelitis COMPARISON: CT CT R FOOT WO CONTRAST on DOS: 02/11/25, RFOOT on DOS: 07/19/21 CONTRAST: none TECHNIQUE: Standard MR imaging of the right heel without contrast. Pes planus and valgus deformity of the foot. There are extensive subchondral cystic change involving the subtalar joint ,, tibiotalar joint, and midfoot. There is fragmentation of the medial malleolus. There is no marrow replacing process. Imaged ligaments and tendons are within normal limits. There is soft tissue thickening. There is extensive thickening chronic injury of the fibula calcaneal and fibular talar ligaments. 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 Sequelae of old injury involving the medial malleolus and lateral malleolus Soft tissue swelling
[2025-02-15] VITALS (7 sets, daily range): BP systolic 110–135; BP diastolic 73–88; PULSE 91–103; RESP 18–21; TEMP 97.8–99.7; O2SAT 93–99
[2025-02-15 10:29] LABS: Hemoglobin 12.6 g/dL (13.5-17.5); Nucleated Red Blood Cells % 0.0 %
[2025-02-15 10:31] LABS: Hematocrit 39.0 % (41.0-53.0); Mean Corpuscular Hemoglobin 26.1 pg (28.0-32.0); Mean Corpuscular Volume 80.6 fL (80.0-100.0)
[2025-02-15 10:40] LABS: Chloride 103 mmol/L (98-107); Sodium 139 mmol/L (136-145)
[2025-02-15 10:41] LABS: Anion Gap 12 (5-15); Calcium 9.5 mg/dL (8.7-10.4); Carbon Dioxide 24 mmol/L (20-31)
[2025-02-15 10:46] LABS: BUN/Creatinine Ratio 9.9 (10.0-20.0); Blood Urea Nitrogen 13 mg/dL (9-23); Glucose 127 mg/dL (74-106); Potassium 3.2 mmol/L (3.5-5.1)
[2025-02-15 10:50] LABS: Creatine Kinase IFCC 185 U/L (46-171)
--- NOTE | 2025-02-15 16:14 | DVHPNRES ---
Progress Note Date Seen: Feb 15, 2025 Resident Creating Document: OLIVE BAIRD RESIDENT Medical Necessity Reason Pt with a Central, PICC or Fol: No Subjective Review of Systems Mr. Wadsworth is a 69-year-old male with prior medical history of hypertension, prediabetes, chronic venous insufficiency, venous ulcers, hyperlipidemia, BPH, HFpEF, and gout, who presented to [facility] with chief complaint of affected right leg wound. The patient states he noticed the leg wound on the medial aspect of the right heel 2 days prior to presentation and noticed drainage of clear fluid associated with foul odor, surrounding edema, and sharp intermittent in pain, 10/10 intensity, nonradiating, which worsens when he elevates his leg, without relieving factors. He denies fever, nausea, vomiting, purulent suppuration, decreased sensation in right foot, chest pain, abdominal pain, and palpitations. due to persistence of symptoms he presented to the ED for evaluation. On evaluation in the ED, he is afebrile, normocardic, normotensive, and saturating adequately on room air. initial labs are significant for mild normocytic anemia, UA and UDS without significant findings. Chest x-ray shows no acute cardiopulmonary disease. Right foot CT shows no acute fracture or dislocation, severe diffuse subcutaneous soft tissue edema and swelling, diffuse skin thickening and soft tissue ulceration of the medial malleolus and posterior medial aspect of the ankle joint overlying the medial calcaneus, advanced degenerative subchondral cystic degenerative change at the calcaneal talar joint. Venous duplex ultrasound shows no evidence of DVT in bilateral lower extremities. Patient was started on IV antibiotics and was admitted for further workup and monitoring. Prior Surgical History: Right total knee replacement in 2011 Allergies: Denies Social: States he smoked cigarettes for approximately 35 years with cessation 5 months ago, refers heavy alcohol use with cessation 5 months ago, states he utilized meth and cocaine with cessation in 1991. He currently lives with his mother, states he feels safe. PCP: Jessika saini [place] 02/15/2025: Patient seen and evaluated in bedside today. Patient labs review showed hypokalemia and potassium supplemented. Patient currently denies any acute distress Medically stable possible discharge tomorrow. Objective vital signs Vital Sign Date Time Temp Pulse Resp B/P (MAP) Pulse Ox O2 Delivery O2 Flow Rate FiO2 02/15/25 13:30 98.2 91 18 135/88 (104) 93 98.2 12/28/25 08:00 Room Air* 0 21 Total Intake and Output 02/14/25 02/14/25 02/15/25 15:00 23:00 07:00 Intake Total 50 ml 510 ml 1720 ml Output Total 1100 ml 800 ml Balance 50 ml -590 ml 920 ml medications Current Medications Medications Dose Ordered Sig/Yoanna Route Start Time Stop Time Status Last Admin Dose Admin Sodium Chloride 10 ml Q8HR IV 02/11/25 22:00 02/15/25 14:00 10 ML Sodium Chloride 1,000 ml @ 60 mls/hr [id number] IV 02/11/25 15:15 02/15/25 03:41 60 MLS/HR Acetaminophen/ Hydrocodone Bitart 1 tab Q4HP PRN PO 02/11/25 15:15 02/15/25 14:16 1 TAB Ondansetron HCl 4 mg Q4HP PRN IV 02/11/25 15:15 Enoxaparin Sodium 40 mg DAILY SC 02/12/25 10:00 Acetaminophen 650 mg Q6HP PRN PO 02/11/25 15:15 Allopurinol 100 mg DAILY PO 02/12/25 10:00 02/15/25 08:21 100 MG Furosemide 40 mg BIDD PO 02/11/25 18:00 02/15/25 05:34 40 MG Tamsulosin HCl 0.4 mg QPM PO 02/12/25 18:00 02/14/25 18:25 0.4 MG Amlodipine Besylate 10 mg DAILY PO 02/12/25 10:00 02/15/25 08:21 10 MG Atorvastatin Calcium 40 mg HS PO 02/12/25 10:00 02/14/25 21:29 40 MG Losartan Potassium 100 mg DAILY PO 02/12/25 10:00 02/15/25 08:22 100 MG Pantoprazole Sodium 40 mg DAILY IV 02/12/25 10:00 02/15/25 08:22 40 MG Ceftriaxone Sodium 50 ml @ 100 mls/hr DAILY@09 IV 02/13/25 09:00 02/15/25 08:22 100 MLS/HR Daptomycin 770 mg/ Sodium Chloride 50 ml @ 100 mls/hr DAILY IV 02/14/25 13:06 02/15/25 10:26 100 MLS/HR Examination General: The patient alert and oriented in person place and time. Patient following commands HEENT: Normocephalic, atraumatic, normal reactive pupils, EOM intact Respiratory/pulmonary: Bilateral chest expansion, no pain on palpation of chest wall, clear lungs bilaterally, no associated crackles or wheezes. Cardiovascular: Normal RRR, normal S1 and S2, no murmurs Abdomen: Obese, abdomen nondistended, normal bowel sounds, soft, there is no pain to palpation in any of the abdominal quadrants, no palpable masses. Extremities: No deformities, 2+ pitting edema observed in bilateral feet, pulses are palpable Skin: There is a flat red wound on the medial surface of the right malleolus with surrounding edema, granulation tissue is noted, suppuration of clear serous fluid, no odor is noted, pain to palpation Neurological: Intact cranial nerves with no focal neurologic deficit laboratory and microbiology Laboratory Tests 02/15/25 10:14 Test 02/15/25 10:14 Range/Units Serum Glucose 127 H 74-106 mg/dL Microbiology Date/Time Source Procedure Growth Status 02/12/25 21:51 Nose MRSA Screen - Final Complete 02/11/25 13:17 Blood Blood Culture - Preliminary NO GROWTH AFTER 72 HOURS OF INCUBATION. Resulted Problem List/Assessment/Plan Problem List/Assessment/Plan Cellulitis of the right medial malleolus secondary to venous ulcer Ruled out Osteomyelitis Chronic venous insufficiency - Right Foot CT: no acute fracture or dislocation, severe diffuse subcutaneous soft tissue edema and swelling, diffuse skin thickening and soft tissue ulceration at the medial malleolus and posterior medial aspect of the ankle joint overlying the medial calcaneus. Advanced degenerative subchondral cystic degenerative change at the calcaneal talar joint. -MRI right heel showed no evidence of osteomyelitis, moderate sharp code degenerative changes within the midfoot and subtalar joint. Sequelae of old injury involving both malleolus. - Wound culture: Klebsiella oxytoca, proteus, and Enterococcus faecalis - S/P Zosyn , Doxycycline - Daptomycin and ceftriaxone IV antibiotic -CPK level 185 ,will monitor - [place] 5/325 mg PO q 4 hours PRN - Acetaminophen 650 mg PO q6 hours PRN - Pending evaluation by Podiatry Anemia of chronic disease Hemoglobin 12.3, HCT 37.7, MCV 80.1 RDW 16.3 No active signs symptoms of bleeding CBC Hypokalemia - Monitor potassium levels - Replete as needed DVT ruled out - Bilateral Venous Duplex US: No DVT Hypertensive heart disease likely systolic, diastolic heart failure - Monitor BP - Losartan 100 mg PO daily - Amlodipine 10 mg PO daily Mixed Hyperlipidemia - Atorvastatin 40 mg PO HS Chronic HFpEF, not in exacerbation - Echocardiogram 11/05/2024: of 65%, grade 1 diastolic dysfunction - Furosemide 40 mg PO BID Gout - Allopurinol 100 mg PO daily BPH - Flomax 0.4 mg PO q AM Morbid obesity, 36.8 kg/m2 - I have counseled the patient on healthy life style modifications. History of polysubstance abuse History of hepatitis-C unknown treatment Hepatitis-C antibody positive on 07/20/2021 History of tobacco use Diet: Cardiac DVT prophylaxis: Lovenox GI prophylaxis: Protonix Goals of care discussions.. More than 21 minute spent with patient. Full code status. Case discussed with Dr. Porter Plan discussed with: Patient, Other (Nurse) My Orders My Orders Orders - OLIVE BAIRD Procedure Category Date Status Time Vitamin D, 25-Hydroxy LAB 02/15/25 In Process 08:19 Potassium Er Tablet PHA 02/15/25 Logged (Klor-Con Tablet) 22:00 Dietary Evaluation Review Comments: Nutrition Recommendation: 1) Codey 1 pk BID 2) CCHO 75gm + 2gm Na diet 3) Monitor PO intake, lab values, weight trend, and I/O Expected Outcomes/Goals: Wound to improve FU 3-5 days Visit Coding STANDARD RES Billing Provider: JAYLAN PORTER MD Date of Service if different f: Feb 15, 2025 Common Visit Codes: [id number] INP/OBS CARE(HIGH) OLIVE BAIRD RESIDENT Feb 15, 2025 16:14 JAYLAN PORTER MD Feb 18, 2025 14:26
[2025-02-15] MEDS: POTASSIUM CHL 20 Meq TABLET PO SCH (21:40)
[2025-02-16 01:00] VITALS: BP 94/69; PULSE 112; RESP 20; TEMP 99; O2SAT 92
[2025-02-16 05:00] VITALS: BP 131/76; PULSE 98; RESP 20; TEMP 98.4; O2SAT 93
[2025-02-16 06:48] LABS: Hematocrit 35.5 % (41.0-53.0); Hemoglobin 12.1 g/dL (13.5-17.5); Mean Corpuscular Hemoglobin 27.0 pg (28.0-32.0); Mean Corpuscular Volume 79.0 fL (80.0-100.0); Nucleated Red Blood Cells % 0.0 %
[2025-02-16 07:14] LABS: Anion Gap 11 (5-15); Carbon Dioxide 25 mmol/L (20-31); Chloride 103 mmol/L (98-107); Potassium 3.7 mmol/L (3.5-5.1); Sodium 139 mmol/L (136-145)
[2025-02-16 07:15] LABS: Calcium 9.5 mg/dL (8.7-10.4)
[2025-02-16 07:20] LABS: BUN/Creatinine Ratio 15.3 (10.0-20.0); Blood Urea Nitrogen 21 mg/dL (9-23); Glucose 96 mg/dL (74-106)
[2025-02-16 08:00] VITALS: PULSE 94; RESP 18; O2SAT 96
[2025-02-16 09:15] VITALS: BP 97/67; PULSE 94; RESP 18; TEMP 98.3; O2SAT 92
[2025-02-16] MEDS ORDERED: CEFD300C2 PO (12:19)
[2025-02-16] MEDS ORDERED: LINE1TAB6 PO (12:19)
--- NOTE | 2025-02-16 12:35 | DVHCONRES ---
Date Seen: Feb 16, 2025 Reason for Consultation Right ankle wound History of Present Illness Mr Lee is a 69 y o m patient with a history of hypertension, diabetes mellitus, and previous venous ulcers presenting with a new wound that began leaking 2 days ago. The patient had previously been treated at a wound clinic for venous ulcers approximately 3-4 months ago, at which time he was told the ulcers were healed. Two days prior to presentation, the patient noticed his sock became soaking wet from fluid leaking from a new wound. When he removed the dried sock, a piece of tissue came off with it, and the wound continued to leak fluid. The patient reports occasional mild pain in his cheekbone area and notes that the wound has developed a bad smell, which he interprets as a sign of infection. He denies fever but acknowledges the foul odor prompted him to seek medical care. The patient has a significant history of venous ulcers lasting over a year b efore successful treatment at the wound clinic. He denies having varicose veins, lung issues, kidney issues, or heart problems. Past Medical History See H&P Past Surgical History See H&P Family History: Arthritis G8 MOTHER Diabetes mellitus G8 MOTHER FH: cancer GRANDMOTHER, Hypertension G8 MOTHER Allergies: Coded Allergies: NO KNOWN ALLERGIES (Unverified , 07/19/13) Home Meds Active Scripts Cefdinir (Cefdinir) 300 Mg Cap, 300 MG PO BID for 7 Days, #14 CAP Prov:[facility] RESIDENT 02/16/25 Linezolid (Zyvox) 600 Mg Tab, 600 MG PO BID for 7 Days, #14 TAB Prov:[facility] RES[facility] 02/16/25 Allopurinol (Allopurinol) 100 Mg Tab, 100 MG PO DAILY for 30 Days, #30 TAB 3 Refills Prov:MAKENZIE BENNETT MD 07/23/21 Reported Medications Gabapentin (Gabapentin) 300 Mg Cap, 1 CAP PO DAILY for 90 Days, #90 02/12/25 Diclofenac Sodium (Topical) (Aleve Arthritis Pain) 1 % Gel, 1 GRAMS TOP QID for OTHER INSTABILITY, UNSPECIFIED for 7 Days, #100 APPLY 1 GRAM TO AFFECTED AREA FOUR TIMES DAILY. 02/12/25 Bumetanide (Bumetanide) 2 Mg Tab, 1 TAB PO DAILY for 90 Days, #90 02/12/25 Oxycodone W/ Acetaminophen (Apap/Oxycodone) 1 Tab Tab, 1 TAB PO 5XD PRN for RADICULOPATHY, LUMBAR REGION for 30 Days, #150 02/12/25 Cholecalciferol (VITAMIN D3) 2,000 Unit Tab, 1 CAP PO DAILY for 90 Days, #90 11/03/24 Amlodipine Besylate (Amlodipine Besylate) 10 Mg Tab, 1 TAB PO DAILY 11/03/24 Atorvastatin Calcium (ATORVASTATIN CALCIUM) 40 Mg Tab, 1 TAB PO DAILY 05/19/21 Metoprolol Succinate (Metoprolol Succinate Er) 100 Mg Tab, 1 TAB PO DAILY for 90 Days, #90 05/19/21 Tamsulosin Hcl (Tamsulosin Hcl) 0.4 Mg Cap, 1 CAP PO DAILY 05/19/21 Losartan Potassium (Losartan Potassium) 100 Mg Tab, 1 TAB PO DAILY 05/19/21 Current Medications Current Medications Medications (Trade) Dose Ordered Sig/Yoanna Route PRN Reason Start Time Stop Time Status Last Admin Potassium Chloride (Klor-Con Tablet) 40 meq BID PO 02/15/25 22:00 02/16/25 09:17 Vital Signs Vital Signs Date Time Temp Pulse Resp B/P (MAP) Pulse Ox O2 Delivery O2 Flow Rate FiO2 02/16/25 09:18 105/46 02/16/25 09:15 98.3 94 18 92 98.3 02/15/25 20:00 Room Air* 0 21 Physical Exam Dermatological: Skin is dry with mild erythema and some maceration around the wound site No gross deformities noted Mild non-pitting edema present bilaterally Right medial ankle wound with mixed fibro granular base with serous drainage Vascular: Dorsalis pedis and posterior tibial pulses are 1+ bilaterally Capillary refill is under 2 seconds Skin temperature is warm bilaterally Neurologic: Protective sensation is absent on the plantar forefoot bilaterally Monofilament testing reveals decreased sensation in multiple plantar sites Musculoskeletal: Range of motion at the ankle and MTP joints is within normal limits. Strength is 5/5 in all tested muscle groups. Gait is antalgic due to offloading of the affected limb. Labs/Diagnostic Data Labs Test 02/16/25 04:50 02/15/25 10:14 02/12/25 04:53 02/11/25 12:37 Range/Units White Blood Count 8.4 4.4-10.8 10^3/uL Red Blood Count 4.50 4.5-5.90 10^6/uL Hemoglobin 12.1 L 13.5-17.5 g/dL Hematocrit 35.5 L 41.0-53.0 % Mean Corpuscular Volume 79.0 L 80.0-100.0 fL Mean Corpuscular Hemoglobin 27.0 L 28.0-32.0 pg Mean Corpuscular Hemoglobin Concent 34.1 32.0-36.0 g/dL Red Cell Distribution Width 15.7 H 11.8-14.3 % Platelet Count 246 140-450 10^3/uL Mean Platelet Volume 8.4 6.9-10.8 fL Neutrophils (%) (Auto) 70.5 37.0-80.0 % Lymphocytes (%) (Auto) 12.4 10.0-50.0 % Monocytes (%) (Auto) 15.5 H 0.0-12.0 % Eosinophils (%) (Auto) 1.2 0.0-7.0 % Basophils (%) (Auto) 0.4 0.0-2.0 % Neutrophils # (Auto) 5.9 1.6-8.6 10 ^3/uL Lymphocytes # (Auto) 1.0 0.4-5.4 10 ^3/uL Monocytes # (Auto) 1.3 0-1.3 10 ^3/uL Eosinophils # (Auto) 0.1 0-0.8 10 ^3/uL Basophils # (Auto) 0 0-0.2 10 ^3/uL Nucleated Red Blood Cells 0.0 % Sodium Level 139 136-145 mmol/L Potassium Level 3.7 3.5-5.1 mmol/L Chloride Level 103 98-107 mmol/L Carbon Dioxide Level 25 20-31 mmol/L Anion Gap 11 5-15 Blood Urea Nitrogen 21 9-23 mg/dL Creatinine 1.37 H 0.700-1.30 mg/dL Glomerular Filtration Rate Calc 55 >90 mL/min BUN/Creatinine Ratio 15.3 10.0-20.0 Serum Glucose 96 74-106 mg/dL Calcium Level 9.5 8.7-10.4 mg/dL Creatine Kinase 185 H 46-171 U/L Vitamin D 25-Hydroxy 48.1 30.0-100 ng/mL Total Bilirubin 1.0 0.2-1.0 mg/dL Aspartate Amino Transferase (AST) 21 13-40 U/L Alanine Aminotransferase (ALT) 15 7-40 U/L Alkaline Phosphatase 62 46-116 U/L Total Protein 7.4 5.7-8.2 g/dL Albumin 3.8 3.2-4.8 g/dL Prothrombin Time 11.3 9.3-11.8 sec Prothrombin Time INR 1.07 0.9-1.15 Activated Partial Thromboplast Time 52.6 H 24.5-34.5 SEC Lactic Acid Level 1.4 0.4-2.0 mmol/L Test 02/11/25 10:53 02/11/25 10:23 02/11/25 10:22 Range/Units Urine Opiates Screen Neg NEGATIVE Urine Fentanyl Screen Neg NEGATIVE Urine Barbiturates Screen Neg NEGATIVE Urine Phencyclidine Screen Neg NEGATIVE Urine Amphetamines Screen Neg NEGATIVE Urine Benzodiazepines Screen Neg NEGATIVE Urine Cocaine Screen Neg NEGATIVE Urine Cannabinoids Screen Neg NEGATIVE Urine Color Light-yellow Yellow Urine Clarity Clear Clear Urine pH 6.5 5.0-9.0 Urine Specific [place] 1.011 1.001-1.035 Urine Protein Negative Negative Urine Ketones Negative Negative Urine Blood Negative Negative /uL Urine Nitrite Negative Negative Urine Bilirubin Negative Negative Urine Urobilinogen Normal Negative mg/dL Urine Leukocyte Esterase Negative Negative /uL Urine RBC 3 0 - 3 /hpf Urine Microscopic WBC < 1 0-3 /HPF Urine Squamous Epithelial Cells Few <5 /hpf Urine Bacteria None seen None Seen /hpf Urine Glucose Normal Normal mg/dL Magnesium Level 2.1 1.6-2.6 mg/dL Troponin I High Sensitivity < 3 L </=54 ng/L B-Type Natriuretic Peptide 8.81 0-100 pg/mL Microbiology Date/Time Source Procedure Growth Status 02/12/25 21:51 Nose MRSA Screen - Final Complete 02/11/25 13:17 Blood Blood Culture - Preliminary NO GROWTH AFTER 72 HOURS OF INCUBATION. Resulted Problems(with codes): (1) Anemia (2) Rectal bleeding (3) Leukocytosis (4) Renal insufficiency (5) Acute wrist pain (6) Gout attack (7) Synovial cyst of popliteal space [[place]], left knee (8) Cardiomyopathy (9) Abrasion of knee, left (10) Deformity of ankle joint (11) Cellulitis of right lower extremity (12) HTN (hypertension) (13) Venous stasis of both lower extremities (14) Recurrent cellulitis of lower extremity (15) Antral ulcer (16) Cellulitis of right ankle Plan/Recommendation ASSESSMENT: Patient is a 69 year old seen on the floor for a worsening ulcer PLAN: - The patients chart was reviewed, clinical findings were discussed with the patient, the etiologies of the conditions were discussed in detail, and a treatment plan was agreed to at this time, with both oral and written instructions provided. - reviewed advanced imaging - patient needs outpatient wound care therapy - patient needs compression dressing to the right lower extremity - home health to change every other day - 2 layer compression - 2 weeks of p.o. antibiotics - follow up 1 week after discharge All questions were answered and concerns addressed to the patient's s atisfaction. The patient was given the phone number to the clinic and was told how to make contact with the clinic should any concerns or questions arise. Patient understands that if any questions or concerns arise prior to the next appointment, we should be contacted immediately. FOLLOW-UP: Continue to follow while inpatient Plan discussed with: Patient Visit Coding Podiatry Date of Service if different f: Feb 16, 2025 Billing Provider: EDWARD SERRANO DPM Podiatry Common Visit Codes: CONSULT ONLY Podiatry Consult Codes: 17327-HJ/OBS CONSLTJ NEW/EST HI 80 EDWARD SERRANO DPM Feb 16, 2025 12:35
[2025-02-16 14:34] VITALS: BP 110/71; PULSE 111; TEMP 97.8; O2SAT 96
[2025-02-16] MEDS ORDERED: HYDR-4902 PO (14:55)
--- NOTE | 2025-02-16 17:07 | DVHDSRES ---
Discharge Summary Date of Admission Resident Creating Document: MAURI WHITMAN RESIDENT Feb 11, 2025 at 15:02 Date of Discharge: Feb 16, 2025 Admitting Diagnosis Cellulitis of right ankle Wounds: 4.8x3.0x0.5cm open, full-thickness ulceration to the right medial lower extremity with moist red granulation tissue in the wound base, minimal serous exudate, no odor, periwound is pink/red. Labs/Diagnostic Data: Laboratory Results Test 02/16/25 04:50 02/15/25 10:14 02/12/25 04:53 02/11/25 12:37 White Blood Count 8.4 10^3/uL (4.4-10.8) Red Blood Count 4.50 10^6/uL (4.5-5.90) Hemoglobin 12.1 g/dL (13.5-17.5) Hematocrit 35.5 % (41.0-53.0) Mean Corpuscular Volume 79.0 fL (80.0-100.0) Mean Corpuscular Hemoglobin 27.0 pg (28.0-32.0) Mean Corpuscular Hemoglobin Concent 34.1 g/dL (32.0-36.0) Red Cell Distribution Width 15.7 % (11.8-14.3) Platelet Count 246 10^3/uL (140-450) Mean Platelet Volume 8.4 fL (6.9-10.8) Neutrophils (%) (Auto) 70.5 % (37.0-80.0) Lymphocytes (%) (Auto) 12.4 % (10.0-50.0) Monocytes (%) (Auto) 15.5 % (0.0-12.0) Eosinophils (%) (Auto) 1.2 % (0.0-7.0) Basophils (%) (Auto) 0.4 % (0.0-2.0) Neutrophils # (Auto) 5.9 10 ^3/uL (1.6-8.6) Lymphocytes # (Auto) 1.0 10 ^3/uL (0.4-5.4) Monocytes # (Auto) 1.3 10 ^3/uL (0-1.3) Eosinophils # (Auto) 0.1 10 ^3/uL (0-0.8) Basophils # (Auto) 0 10 ^3/uL (0-0.2) Nucleated Red Blood Cells 0.0 % Sodium Level 139 mmol/L (136-145) Potassium Level 3.7 mmol/L (3.5-5.1) Chloride Level 103 mmol/L (98-107) Carbon Dioxide Level 25 mmol/L (20-31) Anion Gap 11 (5-15) Blood Urea Nitrogen 21 mg/dL (9-23) Creatinine 1.37 mg/dL (0.700-1.30) Glomerular Filtration Rate Calc 55 mL/min (>90) BUN/Creatinine Ratio 15.3 (10.0-20.0) Serum Glucose 96 mg/dL (74-106) Calcium Level 9.5 mg/dL (8.7-10.4) Creatine Kinase 185 U/L (46-171) Vitamin D 25-Hydroxy 48.1 ng/mL (30.0-100) Total Bilirubin 1.0 mg/dL (0.2-1.0) Aspartate Amino Transferase (AST) 21 U/L (13-40) Alanine Aminotransferase (ALT) 15 U/L (7-40) Alkaline Phosphatase 62 U/L (46-116) Total Protein 7.4 g/dL (5.7-8.2) Albumin 3.8 g/dL (3.2-4.8) Prothrombin Time 11.3 sec (9.3-11.8) Prothrombin Time INR 1.07 (0.9-1.15) Activated Partial Thromboplast Time 52.6 SEC (24.5-34.5) Lactic Acid Level 1.4 mmol/L (0.4-2.0) Test 02/11/25 10:53 02/11/25 10:23 02/11/25 10:22 Urine Opiates Screen Neg (NEGATIVE) Urine Fentanyl Screen Neg (NEGATIVE) Urine Barbiturates Screen Neg (NEGATIVE) Urine Phencyclidine Screen Neg (NEGATIVE) Urine Amphetamines Screen Neg (NEGATIVE) Urine Benzodiazepines Screen Neg (NEGATIVE) Urine Cocaine Screen Neg (NEGATIVE) Urine Cannabinoids Screen Neg (NEGATIVE) Urine Color Light-yellow (Yellow) Urine Clarity Clear (Clear) Urine pH 6.5 (5.0-9.0) Urine Specific [place] 1.011 (1.001-1.035) Urine Protein Negative (Negative) Urine Ketones Negative (Negative) Urine Blood Negative /uL (Negative) Urine Nitrite Negative (Negative) Urine Bilirubin Negative (Negative) Urine Urobilinogen Normal mg/dL (Negative) Urine Leukocyte Esterase Negative /uL (Negative) Urine RBC 3 /hpf (0 - 3) Urine Microscopic WBC < 1 /HPF (0-3) Urine Squamous Epithelial Cells Few /hpf (<5) Urine Bacteria None seen /hpf (None Seen) Urine Glucose Normal mg/dL (Normal) Magnesium Level 2.1 mg/dL (1.6-2.6) Troponin I High Sensitivity < 3 ng/L (</=54) B-Type Natriuretic Peptide 8.81 pg/mL (0-100) Other Laboratory Tests 02/16/25 04:50 Brief Hx & Hospital Course: Mr. Wadsworth is a 69-year-old male with prior medical history of hypertension, prediabetes, chronic venous insufficiency, venous ulcers, hyperlipidemia, BPH, HFpEF, and gout, who presented to [facility] with chief complaint of affected right leg wound. The patient states he noticed the leg wound on the medial aspect of the right heel 2 days prior to presentation and noticed drainage of clear fluid associated with foul odor, surrounding edema, and sharp intermittent in pain, 10/10 intensity, nonradiating, which worsens when he elevates his leg, without relieving factors. He denies fever, nausea, vomiting, purulent suppuration, decreased sensation in right foot, chest pain, abdominal pain, and palpitations. due to persistence of symptoms he presented to the ED for evaluation. On evaluation in the ED, he is afebrile, normocardic, normotensive, and saturating adequately on room air. initial labs are significant for mild normocytic anemia, UA and UDS without significant findings. Chest x-ray shows no acute cardiopulmonary disease. Right foot CT shows no acute fracture or dislocation, severe diffuse subcutaneous soft tissue edema and swelling, diffuse skin thickening and soft tissue ulceration of the medial malleolus and posterior medial aspect of the ankle joint overlying the medial calcaneus, advanced degenerative subchondral cystic degenerative change at the calcaneal talar joint. Venous duplex ultrasound shows no evidence of DVT in bilateral lower extremities. Patient was started on IV antibiotics and was admitted for further workup and monitoring. 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 Wound cultures were growing Klebsiella oxytoca, Proteus, and Enterococcus faecalis, for which daptomycin would be started. The patient was evaluated by Dr. Fontana who recommened oral antibiotic treatment and outpatient follow up. Consult for home health for wound care was placed. On evaluation today, the patient states he was well, complains of occasional pain, otherwise has slept well, is eating well, and is able to ambulate with his cane. He is afebrile, normocardic, normotensive, and saturating adequately on room air. Follow up labs are stable. He is considered stable for discharge home with prescription for Zyvox and Cefadinir to complete anitbiotic treatment at home. He will follow up in the discharge clinic and with his PCP at [facility]. Will follow up with Dr. Fontana out patient. All medications, indications, treatment regimens, and potential side effects have been explained. All recommendations, questions, and concerns have been addressed. He state he understands and agrees. Physical Exam General: The patient alert and oriented in person place and time. Patient following commands HEENT: Normocephalic, atraumatic, normal reactive pupils, EOM intact, pink conjunctiva, pink moist mucous membrane Respiratory/pulmonary: Bilateral chest expansion, no pain on palpation of chest wall, clear lungs bilaterally, vesicular murmurs present in almost all lung edmonds, no associated crackles or wheezes. Cardiovascular: Normal RRR, normal S1 and S2, no murmurs Abdomen: Obese, abdomen nondistended, normal bowel sounds, soft, there is no pain to palpation in any of the abdominal quadrants, no palpable masses. Extremities: No deformities, 2+ pitting edema observed in bilateral feet, pulses are palpable Skin: There is a flat red wound on the medial surface of the right malleolus withs surrounding edema, granulation tissue is noted, suppuration of clear serous fluid, no odor is noted, pain to palpation Neurological: Intact cranial nerves with no focal neurologic deficits Goals of care and plan of discharge discussed with the patient for 23 minutes. Case discussed with Dr. Porter Consults/Reason for consult Podiatry was consulted for evaluation of ankle wound Operations or Procedures CHEST RADIOGRAPH INDICATION: sob TECHNIQUE: Single frontal view of the chest was obtained COMPARISON: XY CHEST XRAY 1 VIEW on DOS: 11/03/24, CHEST PORTABLE on DOS: 07/19/21, CXRP on DOS: 07/19/21 FINDINGS: Lines and Tubes: None Lungs: No focal consolidation. Pleura: No effusion. No pneumothorax. Cardiomediastinal contours: Unremarkable Bones: No acute osseous abnormality. IMPRESSION: 1. No acute cardiopulmonary disease. 2. NO SIGNIFICANT CHANGE FROM 11/02/2024. EXAMINATION: CT CT R FOOT WO CONTRAST INDICATION: Rule out ankle osteomyelitis COMPARISON: LFOOT on DOS: 07/19/21, RFOOT on DOS: 07/19/21 TECHNIQUE: CT of the right foot was performed without contrast. Volume transverse images were obtained reconstructed in multiple planes using bone and soft tissue algorithms. Findings/ IMPRESSION: No acute fracture or dislocation. Severe diffuse subcutaneous soft-tissue edema and swelling. Diffuse skin thickening and soft-tissue ulceration at the medial malleolus and posteromedial aspect of the ankle joint overlying the medial calcaneus. These findings are suggestive of cellulitis. Advanced degenerative subchondral cystic and degenerative change at the calcaneal talar joint. No definite bony erosive changes to suggest the presence subacute osteomyelitis. MRI can be obtained to further evaluate if clinically indicated. No discrete fluid collection or abscess. INDICATION: Rule out DVT COMPARISON: US RT LOWER DVT on DOS: 11/03/24, FINDINGS: There is normal compressibility and flow augmentation in all of the imaged deep veins. There are no filling defects. Left louis's cyst measuring 3.6 x 1.9 cm. Right inguinal lymph node with fatty hilum measuring 2.6 x 1.2 X 5.4 cm. IMPRESSION: No evidence of DVT in the bilateral lower extremities Right inguinal lymph node with fatty hilum measuring 5.4 x 2.6 x 1.2 cm. MRI RIGHT HEEL WITHOUT CONTRAST HISTORY: R/o osteomyelitis COMPARISON: CT CT R FOOT WO CONTRAST on DOS: 02/11/25, RFOOT on DOS: 07/19/21 CONTRAST: none TECHNIQUE: Standard MR imaging of the right heel without contrast. Pes planus and valgus deformity of the foot. There are extensive subchondral cystic change involving the subtalar joint ,, tibiotalar joint, and midfoot. There is fragmentation of the medial malleolus. There is no marrow replacing process. Imaged ligaments and tendons are within normal limits. There is soft tissue thickening. There is extensive thickening chronic injury of the fibula calcaneal and fibular talar ligaments. 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 Sequelae of old injury involving the medial malleolus and lateral malleolus Soft tissue swelling Condition at Discharge: Stable Final Diagnosis/Problems List Cellulitis of the right medial malleolus secondary to venous ulcer Osteomyelitis, ruled out Chronic venous insufficiency Normocytic anemia Hypokalemia DVT ruled out Hypertension Hyperlipidemia Chronic HFpEF, not in exacerbation Gout BPH Morbid obesity, 36.8 kg/m2 History of polysubstance abuse History of tobacco use Discharge Disposition: Home Discharge Instruct/Medications Diet: Cardiac 2g Na,low cholest Activity: No Restrictions, As Tolerated Follow Up/Referral: Follow up with PCP Follow up in [place] clinic Medications: Per EMR Scheduled Allopurinol (Allopurinol), 100 MG PO DAILY Amlodipine Besylate (Amlodipine Besylate), 1 TAB PO DAILY, (Reported) Atorvastatin Calcium (Atorvastatin Calcium), 1 TAB PO DAILY, (Reported) Bumetanide (Bumetanide), 1 TAB PO DAILY, (Reported) Cefdinir (Cefdinir), 300 MG PO BID Cholecalciferol (Vitamin D3), 1 CAP PO DAILY, (Reported) Diclofenac Sodium (Topical) (Aleve Arthritis Pain), 1 GRAMS TOP QID, (Reported) Gabapentin (Gabapentin), 1 CAP PO DAILY, (Reported) Linezolid (Zyvox), 600 MG PO BID Losartan Potassium (Losartan Potassium), 1 TAB PO DAILY, (Reported) Metoprolol Succinate (Metoprolol Succinate Er), 1 TAB PO DAILY, (Reported) Tamsulosin Hcl (Tamsulosin Hcl), 1 CAP PO DAILY, (Reported) Scheduled PRN Hydrocodone-Acetaminophen (Hydrocodone Bitartrate/AC 5-325 mg), 1 TAB PO Q8HP PRN Oxycodone W/ Acetaminophen (Apap/Oxycodone), 1 TAB PO 5XD PRN for RADICULOPATHY, LUMBAR REGION, (Reported) Discharge Statement: "Patient was advised to return to the ER or call 911 if any headaches, dizziness, shortness of breath, chest pain, abdominal pain, bleeding, fevers, or worsening of medical condition. Patient was counseled about treatment plan, medications, possible side effects, patientverbalized understanding. All questions were answered to the best of my ability. This discharge took greater then 30 minutes in planning, reviewing documentation, counseling the patient, and discussing with other team members." ASSESSMENT ASSESSMENT Assessment Visit Coding STANDARD RES Billing Provider: JAYLAN PORTER MD Date of Service if different f: Feb 16, 2025 Common Visit Codes: 41458-UKJ/OBS DISCH DAY >30min MAURI WHITMAN RESIDENT Feb 16, 2025 17:07 JAYLAN PORTER MD Feb 18, 2025 14:39
== END 2025-02-16 15:12 | disposition home health service (06) | DRG 603 ==
LOC: ER 09:36 → OVERFLOW 15:02 → WEST WING 20:52
PROVIDERS: ADMIT Student in an Organized Health Care Education/Training Program; ATTEND Student in an Organized Health Care Education/Training Program
DX: L03.115 Cellulitis of right lower limb (principal); I50.32 Chronic diastolic (congestive) heart failure; K62.6 Ulcer of anus and rectum; L97.918 Non-pressure chronic ulcer of unspecified part of right lower leg with other specified severity; I11.0 Hypertensive heart disease with heart failure; D64.9 Anemia, unspecified; E11.622 Type 2 diabetes mellitus with other skin ulcer; E66.01 Morbid (severe) obesity due to excess calories; I87.2 Venous insufficiency (chronic) (peripheral); M10.9 Gout, unspecified; N40.0 Benign prostatic hyperplasia without lower urinary tract symptoms; F17.210 Nicotine dependence, cigarettes, uncomplicated; E87.6 Hypokalemia; E78.5 Hyperlipidemia, unspecified; Z68.36 Body mass index [BMI] 36.0-36.9, adult; Z96.651 Presence of right artificial knee joint; Z80.8 Family history of malignant neoplasm of other organs or systems; Z79.899 Other long term (current) drug therapy; Z86.73 Personal history of transient ischemic attack (TIA), and cerebral infarction without residual deficits
CPT/HCPCS: 36415; 71045; 73700; 73718; 80048; 80053; 80307; 81001; 82306; 82550; 83605; 83735; 83880; 84484; 85025; 85610; 85730; 87040; 87077; 87081; 87186; 87205; 93970; 99291; 99292; G0378; J2470; J2543; J3490; J7042